=== PATIENT | female | born 1990 | race Caucasian/White ===

== ENCOUNTER 2022-05-12 16:12 | Outpatient (CLI) | payer OTHER, SELFPAY | END 2022-05-12 16:13 | disposition home or self-care (01) | LOC: LKVREF 05-14 09:15 | PROVIDERS: PCP Family Medicine; Visit Provider Nurse Practitioner Family | DX: R30.0 Dysuria (principal); J32.9 Chronic sinusitis, unspecified | CPT/HCPCS: 87086 ==

== ENCOUNTER 2022-11-10 19:40 | Emergency (ER) | payer BC, SELFPAY ==
[2022-11-10] VITALS (18 sets, daily range): BP systolic 109–139; BP diastolic 76–91; PULSE 74–94; RESP 18; TEMP 36.6; O2SAT 94–99; BMI 32.1
--- NOTE | 2022-11-10 20:00 | CRLHL7_ITS ---
For Patients: As a result of the Cures Act, medical imaging exams and procedure reports are released immediately into your electronic medical record. You may view this report before your referring provider. If you have questions, please contact your health care provider. INDICATION: Increasing right lower quadrant abdominal pain TECHNIQUE: CT abdomen and pelvis 99 cc Isovue 370 contrast. COMPARISON: Abdominal ultrasound on February 10, 2018 FINDINGS: Lower chest: Unremarkable. Liver: Unremarkable. Spleen: Unremarkable. Pancreas: Unremarkable. Gallbladder and bile ducts: Unremarkable. Adrenal glands: Unremarkable. Kidneys: Unremarkable. No kidney or ureteral stones and no hydronephrosis. GI tract: Unremarkable. Appendix is normal. Vascular structures: Unremarkable. Lymph nodes: Unremarkable. Miscellaneous: Unremarkable. No free air or significant free fluid. Pelvic Organs: 3.6 cm right adnexal cyst.. Bones: Unremarkable for age. IMPRESSION: Greater than 3 cm cystic mass in the right adnexa. Consider pelvic ultrasound for further evaluation. Please note that all CT scans at this facility use dose modulation, iterative reconstruction, and/or weight-based dosing when appropriate to reduce radiation dose to as low as reasonably achievable. Dictated by Helen King MD @ 11/10/2022 10:18:36 PM (Electronically Signed)
--- NOTE | 2022-11-10 20:07 | ED_ITS ---
HPI - General Adult General Chief complaint: Abdominal Pain <Janet Patrick MD - Last Filed: 11/10/22 22:13> Stated complaint: Pain in R side and nausea <Janet Patrick MD - Last Filed: 11/10/22 22:13> Time Seen by Provider: 11/10/22 19:42 <Janet Patrick MD - Last Filed: 11/10/22 22:13> Source: patient <Janet Patrick MD - Last Filed: 11/10/22 22:13> Mode of arrival: ambulatory <Janet Patrick MD - Last Filed: 11/10/22 22:13> Limitations: no limitations <Janet Patrick MD - Last Filed: 11/10/22 22:13> History of Present Illness HPI narrative: 32-year-old female coming in today complaining of right lower quadrant pain that is been going on for 4 days. She feels nauseated has decreased appetite. She denies vomiting or fevers. She denies anything making the pain better, movement makes it worse. The car ride did not really bother her too much. She has daily bowel movements. No difficulty with urination. She denies and is on control. She states that she does have chronic abdominal pain, however this is different. <Janet Patrick MD - Last Filed: 11/10/22 22:13> Related Data Home medications: Previous Rx's Medication Instructions Recorded azithromycin 250 mg tablet See Rx Instructions PO .COMPLEX #6 05/12/22 tabs <Janet Patrick MD - Last Filed: 11/10/22 22:13> Allergies/adverse reactions: Allergies Allergy/AdvReac Type Severity Reaction Status Date / Time latex Allergy Intermediate Verified 11/10/22 21:11 adhesive tape Allergy Verified 11/10/22 21:11 amoxicillin AdvReac Intermediate Diarrhea Verified 11/10/22 21:11 <Janet Patrick MD - Last Filed: 11/10/22 22:13> Review of Systems Status of ROS: Reports: 10 or more systems reviewed and unremarkable except as noted in History and below <Janet Patrick MD - Last Filed: 11/10/22 22:13> [facility] Medical History: Medical History Dysuria ?R30.0 - Dysuria (ICD-10) <Janet Patrick MD - Last Filed: 11/10/22 22:13> Social History: Social History Smoking Status: Current every day smoker What tobacco products do you use: cigarettes Smoking packs per day: 0.5 Smoking cigarettes per day: 10.0 Years smoked: 20 Smoking pack-years: 10.00 Second hand tobacco smoke exposure: Yes How often do you have a drink containing alcohol: monthly or less How many standard drinks containing alcohol do you have on a typical day: 1 or 2 How often do you have six or more drinks on one occasion: Never AUDIT-C Alcohol total score: 1 Non-prescribed substance use: marijuana (any form) service: No <Janet Patrick MD - Last Filed: 11/10/22 22:13> Exam Narrative: Exam Narrative: Well-nourished well-developed patient in no acute distress. Alert and oriented. Answers questions appropriately. Mood and affect are appropriate. Thoughts are goal oriented and rational. No tangential or magical thinking noted. Patient speaks in full sentences without needing to catch their breath. HEENT: Normocephalic atraumatic. Pupils are equally round reactive to light. Extraocular muscles are intact. Conjunctivae are moist without any icterus noted. Moist mucous membranes. Posterior pharynx is normal. Neck is soft without any lymphadenopathy or thyromegaly. No masses are appreciated. Cardiovascular: Heart is regular rate and rhythm S1 and S2 are present without any murmurs. Lungs: Clear to auscultation bilaterally no wheezes rhonchi or rales are appreciated. Patient takes deep breaths without any discomfort. Abdomen: Soft and nondistended normal bowel sounds. No guarding or rebound tenderness. She does have right lower quadrant pain white at McBurney's point. Does not appear to have pelvic pain. Extremities: Bilateral lower extremities are without edema. Normal DP and PT pulses. Skin: Well perfused without any obvious rashes. <Janet Patrick MD - Last Filed: 11/10/22 22:13> Const: Vital Signs, click to edit/add: Vital Signs - 24 hr 11/10/22 19:46 11/10/22 20:00 11/10/22 21:22 Temperature 98 F Pulse Rate 86 Pulse Rate [Pulse Oximeter] 94 94 Respiratory Rate 18 18 Blood Pressure Blood Pressure [Le ft Upper Arm] 139/91 H 133/81 Pulse Oximetry 97 98 97 Oxygen Delivery Me thod Room Air Room Air 11/10/22 21:30 11/10/22 21:32 11/10/22 21:45 Temperature Pulse Rate 83 83 86 Pulse Rate [Pulse Oximeter] Respiratory Rate Blood Pressure 126/76 Blood Pressure [Le ft Upper Arm] Pulse Oximetry 96 98 95 Oxygen Delivery Me thod Room Air 11/10/22 22:00 11/10/22 22:02 11/10/22 22:15 Temperature Pulse Rate 75 79 77 Pulse Rate [Pulse Oximeter] Respiratory Rate Blood Pressure 129/85 Blood Pressure [Le ft Upper Arm] Pulse Oximetry 98 97 96 Oxygen Delivery Me thod 11/10/22 22:30 Temperature Pulse Rate 79 Pulse Rate [Pulse Oximeter] Respiratory Rate Blood Pressure Blood Pressure [Le ft Upper Arm] Pulse Oximetry 94 Oxygen Delivery Me thod <Janet Patrick MD - Last Filed: 11/10/22 22:13> Vital Signs, click to edit/add: Vital Signs - 24 hr 11/10/22 19:46 11/10/22 20:00 11/10/22 21:22 Temperature 98 F Pulse Rate 86 Pulse Rate [Pulse Oximeter] 94 94 Respiratory Rate 18 18 Blood Pressure Blood Pressure [Le ft Upper Arm] 139/91 H 133/81 Pulse Oximetry 97 98 97 Oxygen Delivery Me thod Room Air Room Air 11/10/22 21:30 11/10/22 21:32 11/10/22 21:45 Temperature Pulse Rate 83 83 86 Pulse Rate [Pulse Oximeter] Respiratory Rate Blood Pressure 126/76 Blood Pressure [Le ft Upper Arm] Pulse Oximetry 96 98 95 Oxygen Delivery Me thod Room Air 11/10/22 22:00 11/10/22 22:02 11/10/22 22:15 Temperature Pulse Rate 75 79 77 Pulse Rate [Pulse Oximeter] Respiratory Rate Blood Pressure 129/85 Blood Pressure [Le ft Upper Arm] Pulse Oximetry 98 97 96 Oxygen Delivery Me thod 11/10/22 22:30 Temperature Pulse Rate 79 Pulse Rate [Pulse Oximeter] Respiratory Rate Blood Pressure Blood Pressure [Le ft Upper Arm] Pulse Oximetry 94 Oxygen Delivery Me thod <Aj Conley MD - Last Filed: 11/13/22 08:12> Course Course Hospital Course: IV was started and labs were drawn. Abdominal CT was ordered. Differential diagnoses at this time includes appendicitis, colitis, ovarian cyst, constipation, pancreatitis. I did offer the patient pain medications and she declined at this time. Laboratory workup was unremarkable. UA was a poor specimen. Abdominal CT results pending at this time. Care transferred to oncoming physician. <Janet Patrick MD - Last Filed: 11/10/22 22:13> Vital Signs Vital signs: Initial Vital Signs Temperature 98 F 11/10/22 19:46 Temperature Source Temporal Artery Scan 11/10/22 19:46 Pulse Rate 94 11/10/22 19:46 Pulse Rhythm Regular 11/10/22 19:46 Respiratory Rate 18 11/10/22 19:46 Blood Pressure 139/91 H 11/10/22 19:46 Blood Pressure Mean 107 H 11/10/22 19:46 Blood Pressure Position Supine 11/10/22 19:46 Pulse Oximetry 97 11/10/22 19:46 Vital Signs Temperature 98 F 11/10/22 19:46 Pulse Rate 94 11/10/22 19:46 Respiratory Rate 18 11/10/22 19:46 Blood Pressure 139/91 H 11/10/22 19:46 Pulse Oximetry 97 11/10/22 19:46 Temperature 98 F 11/10/22 19:46 Pulse Rate 80 11/10/22 23:45 Respiratory Rate 18 11/10/22 20:00 Blood Pressure 109/78 11/10/22 23:32 Pulse Oximetry 97 11/10/22 23:45 Oxygen Delivery Method Room Air 11/10/22 21:30 <Janet Patrick MD - Last Filed: 11/10/22 22:13> Initial Vital Signs Temperature 98 F 11/10/22 19:46 Temperature Source Temporal Artery Scan 11/10/22 19:46 Pulse Rate 94 11/10/22 19:46 Pulse Rhythm Regular 11/10/22 19:46 Respiratory Rate 18 11/10/22 19:46 Blood Pressure 139/91 H 11/10/22 19:46 Blood Pressure Mean 107 H 11/10/22 19:46 Blood Pressure Position Supine 11/10/22 19:46 Pulse Oximetry 97 11/10/22 19:46 Vital Signs Temperature 98 F 11/10/22 19:46 Pulse Rate 94 11/10/22 19:46 Respiratory Rate 18 11/10/22 19:46 Blood Pressure 139/91 H 11/10/22 19:46 Pulse Oximetry 97 11/10/22 19:46 Temperature 98 F 11/10/22 19:46 Pulse Rate 80 11/10/22 23:45 Respiratory Rate 18 11/10/22 20:00 Blood Pressure 109/78 11/10/22 23:32 Pulse Oximetry 97 11/10/22 23:45 Oxygen Delivery Method Room Air 11/10/22 21:30 <Aj Conley MD - Last Filed: 11/13/22 08:12> Medical Decision Making MDM Narrative Medical decision making narrative: 32-year-old female with right lower quadrant abdominal pain of unclear etiology. CT pending. <Janet Patrick MD - Last Filed: 11/10/22 22:13> 32-year-old female with right lower quadrant abdominal pain of unclear etiology. CT pending. Jarvis -- I inherited this patient at change of shift pending abdomen pelvis CT. Findings most notable for a 3.6 cm suspected cyst in the right adnexal area. Recommendations were for pelvic ultrasound. Ms. Du does acknowledge remote ovarian cyst and was very worried about pain with the proposed ultrasound. Pre treated with Dilaudid. Follow-up pelvic ultrasound per my conversation with robotics technologist noting approximately a 4.5 cm ovarian cyst on the right ovary with good blood flow and a small amount of free fluid. Discussed with OBgyn and with Ms. Du need for pain management and planning for follow up US outpatient in 4 - 6 weeks. See patient discharge plan. <Aj Conley MD - Last Filed: 11/13/22 08:12> Lab Data Lab results reviewed: Yes I reviewed the patient's lab results <Janet Patrick MD - Last Filed: 11/10/22 22:13> Labs: Lab Results 11/10/22 11/10/22 Range/Units 20:15 20:20 WBC 11.22 H (4.50-11.00) K/uL RBC 4.48 (4.00-5.20) m/uL Hgb 13.5 (12.0-16.0) gm/dL Hct 40.9 (33.0-51.0) % MCV 91 (80-100) fL MCH 30 (26-34) pg MCHC 33 (32-36) gm/dL RDW Coeff of Jennifer 12.0 (11.5-15.5) % Plt Count 349 (140-440) K/uL Neut % (Auto) 55.2 (42.0-72.0) % Lymph % (Auto) 36.7 (20-44) % [place] % (Auto) 5.8 (0.0-11.0) % Eos % (Auto) 1.8 (0.0-7.0) % Baso % (Auto) 0.4 (0.0-3.0) % Neut # (Auto) 6.20 (1.7-7.0) K/uL Lymph # (Auto) 4.10 H (0.90-2.90) K/uL [place] # (Auto) 0.70 (0.00-0.90) K/UL Eos # (Auto) 0.20 (0.00-0.50) K/uL Baso # (Auto) 0.00 (0.00-0.30) K/uL Abs Immat Gran (auto) 0.00 (0.00-0.30) K/uL Imm/Tot Granulo (auto) 0.1 % ESR 16 (2-20) mm/hr Sodium 137 (135-149) mmol/L Potassium 3.9 (3.6-5.1) mmol/L Chloride 103 (96-114) mmol/L Carbon Dioxide 27 (20-32) mmol/L BUN 18 (5-24) mg/dL Creatinine 0.6 (0.5-1.5) mg/dL Estimated Creat Clear 132.11 Estimated GFR 123 ml/min Glucose 96 (60-115) mg/dL Lactate 0.9 (0.5-1.9) mmol/L Calcium 9.2 (8.4-10.6) mg/dL Total Bilirubin 0.4 (0.1-1.5) mg/dL Direct Bilirubin 0.4 (0.0-0.5) mg/dL AST 27 (12-35) U/L ALT 25 (4-35) U/L Alkaline Phosphatase 93 (40-150) U/L C-Reactive Protein 0.9 (0.5-1.0) mg/dL Total Protein 7.5 (6.0-8.3) g/dL Albumin 4.4 (3.3-5.0) g/dL Lipase 57 (23-300) U/L Urine Color Yellow (Yellow) Urine Appearance Slightly Cloudy A (Clear) Urine pH 7.0 (5.0-8.5) Ur Specific [place] 1.025 (1.000-1.030) Urine Protein 1+ A (Negative) Urine Glucose (UA) Negative (Negative) Urine Ketones 1+ A (Negative) Urine Blood Trace-intact A (Negative) Urine Nitrite Negative (Negative) Urine Bilirubin 1+ A (Negative) Urine Urobilinogen 0.2 (0.2-1.0) Ur Leukocyte Esterase Negative (Negative) Urine RBC 2-5 A (0-2) Urine WBC 2-5 (0-5) Ur Squamous Epith Cells Moderate A (None-Few) Urine Bacteria Moderate A (None) Urine HCG, Qual Negative (Negative) <Janet Patrick MD - Last Filed: 11/10/22 22:13> Lab Results 11/10/22 11/10/22 Range/Units 20:15 20:20 WBC 11.22 H (4.50-11.00) K/uL RBC 4.48 (4.00-5.20) m/uL Hgb 13.5 (12.0-16.0) gm/dL Hct 40.9 (33.0-51.0) % MCV 91 (80-100) fL MCH 30 (26-34) pg MCHC 33 (32-36) gm/dL RDW Coeff of Jennifer 12.0 (11.5-15.5) % Plt Count 349 (140-440) K/uL Neut % (Auto) 55.2 (42.0-72.0) % Lymph % (Auto) 36.7 (20-44) % [place] % (Auto) 5.8 (0.0-11.0) % Eos % (Auto) 1.8 (0.0-7.0) % Baso % (Auto) 0.4 (0.0-3.0) % Neut # (Auto) 6.20 (1.7-7.0) K/uL Lymph # (Auto) 4.10 H (0.90-2.90) K/uL [place] # (Auto) 0.70 (0.00-0.90) K/UL Eos # (Auto) 0.20 (0.00-0.50) K/uL Baso # (Auto) 0.00 (0.00-0.30) K/uL Abs Immat Gran (auto) 0.00 (0.00-0.30) K/uL Imm/Tot Granulo (auto) 0.1 % ESR 16 (2-20) mm/hr Sodium 137 (135-149) mmol/L Potassium 3.9 (3.6-5.1) mmol/L Chloride 103 (96-114) mmol/L Carbon Dioxide 27 (20-32) mmol/L BUN 18 (5-24) mg/dL Creatinine 0.6 (0.5-1.5) mg/dL Estimated Creat Clear 132.11 Estimated GFR 123 ml/min Glucose 96 (60-115) mg/dL Lactate 0.9 (0.5-1.9) mmol/L Calcium 9.2 (8.4-10.6) mg/dL Total Bilirubin 0.4 (0.1-1.5) mg/dL Direct Bilirubin 0.4 (0.0-0.5) mg/dL AST 27 (12-35) U/L ALT 25 (4-35) U/L Alkaline Phosphatase 93 (40-150) U/L C-Reactive Protein 0.9 (0.5-1.0) mg/dL Total Protein 7.5 (6.0-8.3) g/dL Albumin 4.4 (3.3-5.0) g/dL Lipase 57 (23-300) U/L Urine Color Yellow (Yellow) Urine Appearance Slightly Cloudy A (Clear) Urine pH 7.0 (5.0-8.5) Ur Specific [place] 1.025 (1.000-1.030) Urine Protein 1+ A (Negative) Urine Glucose (UA) Negative (Negative) Urine Ketones 1+ A (Negative) Urine Blood Trace-intact A (Negative) Urine Nitrite Negative (Negative) Urine Bilirubin 1+ A (Negative) Urine Urobilinogen 0.2 (0.2-1.0) Ur Leukocyte Esterase Negative (Negative) Urine RBC 2-5 A (0-2) Urine WBC 2-5 (0-5) Ur Squamous Epith Cells Moderate A (None-Few) Urine Bacteria Moderate A (None) Urine HCG, Qual Negative (Negative) <Aj Conley MD - Last Filed: 11/13/22 08:12> Discharge Plan Discharge Clinical Impression: Abdominal pain, Ovarian cyst <Janet Patrick MD - Last Filed: 11/10/22 22:13> Patient Disposition: Home w/ Parent or Adult <Janet Patrick MD - Last Filed: 11/10/22 22:13> Condition: Stable <Janet Patrick MD - Last Filed: 11/10/22 22:13> Additional Instructions: Focus on hydration. Being well-hydrated can ease pain. Be seen for marked increase in persistent pain, intractable vomiting, fever. Barring the above, recommendations would be to follow up for repeat ultrasound in around 4 weeks to verify improvement/resolution of this cyst. I spoke with an OBGYN from [facility]. [place] and Asad from [place]. <Janet Patrick MD - Last Filed: 11/10/22 22:13> Prescriptions: No Action azithromycin 250 mg tablet See Rx Instructions PO .COMPLEX Qty: 6 0RF Rx Instructions: For 250 mg dose pack: take 500 mg today (day 1), then 250 mg for 4 days (days 2-5) PO <Janet Patrick MD - Last Filed: 11/10/22 22:13> Follow Up/Referrals: Willem Alegre MD [Primary Care Provider] - <Janet Patrick MD - Last Filed: 11/10/22 22:13> Stand Alone Forms: MyHealth Info Instructions <Janet Patrick MD - Last Filed: 11/10/22 22:13>
[2022-11-10 20:30] LABS: Lactate* 0.9 mmol/L (0.5-1.9)
[2022-11-10 20:33] LABS: Appearance Urine Slightly Cloudy (Clear); Bilirubin Urine 1+ (Negative); Blood Urine Trace-intact (Negative); Color Urine Yellow (Yellow); Glucose Urine Negative (Negative); Ketones Urine 1+ (Negative); Leukocyte Esterase Urine Negative (Negative); Nitrite Urine Negative (Negative); Protein Urine 1+ (Negative); Specific Gravity Urine 1.025 (1.000-1.030); Urobilinogen Urine 0.2 (0.2-1.0)
[2022-11-10 20:36] LABS: Basophils Percent Auto 0.4 % (0.0-3.0); Eosinophils Percent Auto 1.8 % (0.0-7.0); Hematocrit 40.9 % (33.0-51.0); Hemoglobin* 13.5 gm/dL (12.0-16.0); Immature Granulocytes Pct Auto 0.1 %; Lymphocytes Percent Auto 36.7 % (20-44); Mean Corpuscular HGB Conc 33 gm/dL (32-36); Mean Corpuscular Hemoglobin 30 pg (26-34); Mean Corpuscular Volume 91 fL (80-100); Monocytes Percent Auto 5.8 % (0.0-11.0); Neutrophils Percent Auto 55.2 % (42.0-72.0); Platelet Count* 349 K/uL (140-440); Red Blood Count 4.48 m/uL (4.00-5.20); Slide Review Reflex No; White Blood Count* 11.22 K/uL (4.50-11.00)
[2022-11-10 20:37] LABS: Ur HCG Qualitative* Negative (Negative)
[2022-11-10 20:50] LABS: Albumin* 4.4 g/dL (3.3-5.0); Chloride* 103 mmol/L (96-114)
[2022-11-10 20:51] LABS: Potassium* 3.9 mmol/L (3.6-5.1); Sodium* 137 mmol/L (135-149)
[2022-11-10 20:53] LABS: Creatinine* 0.6 mg/dL (0.5-1.5); Est. Creatinine Clearance* 132.11; Estimated Glomerular Filt Rate 123 ml/min
[2022-11-10 20:54] LABS: Alanine Aminotransferase* 25 U/L (4-35); Alkaline Phosphatase* 93 U/L (40-150); Aspartate Amino Transferase* 27 U/L (12-35); Bilirubin Direct* 0.4 mg/dL (0.0-0.5); Bilirubin Total* 0.4 mg/dL (0.1-1.5); Blood Urea Nitrogen* 18 mg/dL (5-24); Calcium* 9.2 mg/dL (8.4-10.6); Carbon Dioxide* 27 mmol/L (20-32); Glucose* 96 mg/dL (60-115); Lipase* 57 U/L (23-300); Total Protein* 7.5 g/dL (6.0-8.3)
[2022-11-10 20:54] LABS: Bacteria Urine Moderate; Squamous Epithelial Cell Urine Moderate (None-Few)
[2022-11-10 20:56] LABS: C Reactive Protein* 0.9 mg/dL (0.5-1.0)
[2022-11-10 21:11] LABS: Erythrocyte SedimentationRate* 16 mm/hr (2-20)
[2022-11-10] MEDS: ACETAMINOPHEN 500 MG TABLET 1000 MG PO (22:25)
--- NOTE | 2022-11-10 22:55 | CRLHL7_ITS ---
For Patients: As a result of the Century Cures Act, medical imaging exams and procedure reports are released immediately into your electronic medical record. You may view this report before your referring provider. If you have questions, please contact your health care provider. INDICATION: Right and axial cyst TECHNIQUE: Ultrasound pelvis transabdominal and transvaginal for better assessment or to better visualize the endometrium. Real-time sonographic images with spectral and color Doppler imaging of the ovaries were obtained. COMPARISON: CT abdomen and pelvis same date FINDINGS: Uterus: 7.1 x 3.7 x 5.1 cm. Normal echotexture of the myometrium. No masses. Endometrium: Transvaginal imaging was performed to better evaluate the endometrium. 7 mm in thickness. No sign of endometrial mass or fluid. Right ovary: 5.7 x 3.5 x 4.2 cm. There is a 4.4 x 3.1 x 3.7 cm cyst on the right ovary. Normal arterial and venous blood flow. Left ovary: Not visualized. Cul-de-sac: No significant free fluid. IMPRESSION: Greater than 4 cm cyst on the right ovary. Recommend follow-up ultrasound in 4-6 weeks. The left ovary was not visualized on this exam. Dictated by Helen King MD @ 11/11/2022 1:18:15 AM (Electronically Signed)
[2022-11-10] MEDS: HYDROmorphone 0.5 mg/0.5 ml inj IVP (23:51)
--- NOTE | 2022-11-11 19:30 | ED.NURSE ---
Patient called looking for a missing work note from Dr. Conley.
== END 2022-11-11 01:19 | disposition home or self-care (01) ==
PROVIDERS: Emergency Provider Family Medicine; PCP Family Medicine
DX: N83.201 Unspecified ovarian cyst, right side (principal)
CPT/HCPCS: 36415; 74177; 76830; 76856; 80048; 80076; 81001; 81025; 83605; 83690; 85025; 85651; 86140; 87086; 93976; 96374; 99284; A9270; J1170; Q9967

== ENCOUNTER 2024-02-09 11:54 | Outpatient (CLI) | payer MEDICAID, SELFPAY | END 2024-02-09 11:55 | disposition home or self-care (01) | PROVIDERS: PCP Family Medicine; Visit Provider Physician Assistant | DX: Z34.92 Encounter for supervision of normal pregnancy, unspecified, second trimester (principal); Z3A.16 16 weeks gestation of pregnancy | CPT/HCPCS: 82565; 82570; 84156; 84450; 84460; 84520; 86592; 87086 ==

== ENCOUNTER 2024-02-15 11:22 | Outpatient (CLI) | payer MEDICAID, SELFPAY ==
--- OUTSIDE RECORDS SUMMARY | 2024-02-15 14:27 | XMS_ITS ---
Author Organization [facility] Address [address] [place] [address] Care Team Providers Care Security Flex Utility Officer Name Role Phone Unavailable Unavailable Unavailable Surgery Details Not on file Complications Check Surgery Details section. Procedure Estimated Blood Loss Check Surgery Details section. Procedure Findings Check Surgery Details section. Procedure Specimens Taken Check Surgery Details section.
--- OUTSIDE RECORDS SUMMARY | 2024-02-15 14:27 | XMS_ITS | Encounter Summary ---
Author Organization [facility] Address [address] [place] [address] Care Team Providers Care Rural Route Carrier Name Role Phone Unavailable Primary Care Provider Unavailabl e Encounter Details Date Type Department Care Team (Late st Contact Info) Description 01/22/2024 Clinical Communication Department of Obstetrics and Gynecology in [place], [place] [address] [place] [phone] Elisa Byrne, JOSÉ, C.N.P., M.S.N. [address] [place] [phone] Social History Tobacco Use Types Packs/Day Years Used Date Smoking Tobacco: Former Cigarettes Passive Smoke Exposure: Past Smokeless Tobacco: Never Alcohol Use Standard Drinks/Week Comments No 0 (1 standard drink = 0.6 oz pur e alcohol) [facility] Utilities Answer Date Recorded In the past 12 months has [employer], [employer], oil, or water [email or web address] threatened to shut off services in your home? No 12/09/2023 Humiliation, Afraid, Rape, and Kick questionnair e Answer Date Recorded Within the last year, have y ou been afraid of your partner or ex-partner? No 10/31/2022 Within the last year, have y ou been humiliated or emotionally abused in other ways by your partner or ex-partner? No Within the last year, have y ou been kicked, hit, slapped, or otherwise physically hurt by your partner or ex-partner? No 10/31/2022 Within the last year, have y ou been raped or forced to have any kind of sexual activity by your partner or ex-partner? No 10/31/2022 Social Connection and Isolat ion Panel [NHANES] Answer Date Recorded In a typical week, how many times do you talk on the phone with family, friends, or neighbors? Patient declined 02/23/2020 How often do you get togethe r with friends or relatives? Never 02/23/2020 How often do you attend chur or yazidi services? More than 4 times per year 02/23/2020 Do you belong to any clubs o r organizations such as taoist groups, unions, fraternal or athletic groups, or school groups? Yes 02/23/2020 How often do you attend meet ings of the clubs or organizations you belong to? More than 4 times per year 02/23/2020 Are you , , di vorced, , never , or living with a partner? 02/23/2020 AUDIT-C Answer Date Recorded Q1: How often do you have a drink containing alc ohol? Monthly or less 02/23/2020 Q2: How many drinks containi ng alcohol do you have on a typical day when you are drinking? 1 or 2 02/23/2020 Q3: How often do you have si x or more drinks on one occasion? Never 02/23/2020 Overall Financial Resource Strain (CARDIA) Answe r Date Recorded How hard is it for you to pa y for the very basics like food, housing, medical care, and heating? Somewhat hard 10/31/2022 PHQ-2 Answer Date Recorded PHQ-2 Score 0 01/13/2024 [facility] - Occupational Stress Questionnaire Answer Date Recorded Do you feel stress - tense, restless, nervous, or anxious, or unable to sleep at night because your mind is troubled all the time - these days? Very much 02/23/2020 Exercise Vital Sign Answer Date Recorde d On average, how many days pe r week do you engage in moderate to strenuous exercise (like a brisk walk)? 0 days 12/09/2023 On average, how many minutes do you engage in exercise at this level? 0 min 12/09/2023 Hunger Vital Sign Answer Date Recorded Within the past 12 months, y ou worried that your food would run out before you got the money to buy more. Sometimes true Within the past 12 months, t he food you bought just didn't last and you didn't have money to get more. Sometimes true 11/2023 PRAPARE - Transportation Answer Date Re corded In the past 12 months, has l ack of transportation kept you from medical appointments or from getting medications? No 11/2023 In the past 12 months, has l ack of transportation kept you from meetings, work, or from getting things needed for daily living? No 12/09/2023 Depression Answer Date Recor ded PHQ-9 Total Score (max 27) 10 01/12 Nutrition Answer Date Recorded On average, how many serving s of fruits and vegetables do you eat per day (serving size is equal to 1 cup or approximately the size of a tennis ball)? 3-5 12/09/2023 Dental Answer Date Recorded Dental: Regular Dentist No 11/01/19 Employment Answer Date Recorded Employment status Unemployed/not in e paid workforce and NOT seeking employment 12/09/2023 Housing Stability Answer Date Recorded What is your living situation today? I have a [facility] place to live 12/09/2023 Education Answer Date Recorded What is the highest level of school you have completed or the highest degree you have received? GED or equivalent Estimated Date of Delivery Comme nts Yes 07/24/2024 Based on last me nstrual period of 10/18/2023 (Exact Date) Sex and Gender Information Value Date Recorded Sex Assigned at Female 01/18/2018 1:29 PM CDT Legal Sex Female 11:44 AM CDT Gender Identity Female 01/18/2018 1:29 PM CDT Sexual Orientation Bisexual 01/18/2018 1: 29 PM CDT documented as of this encounter Plan of Treatment Not on file documented as of this encounter Visit Diagnoses Not on filedocumented in this encounter Additional Health Concerns Assessment Noted Time PHQ-9 Depression Total Score: 024 4:33 PM CDT documented as of this encounter
--- OUTSIDE RECORDS SUMMARY | 2024-02-15 14:27 | XMS_ITS | Referral Summary ---
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 For routine questions regarding patient records, call [phone] during business hours, M-F 8:00 AM - 5:00 PM Central Time. Record requests for emergency care only can be directed to [phone] at any time.[facility] Encounters Date Type Department Care Team Description 01/22/2024 Clinical Communication Department of Obstetrics and Gynecology in [address] [phone] Elisa Byrne APRN, C.N.P., M.S.N. 01/13/2024 4:36 PM CDT - 01/13/2024 11:59 PM CDT Hospital Encounter Department of Laboratory Medicine in [address] [phone] Elisa Byrne APRN, C.N.P., M.S.N. Examination Normal First Trimester (HCC) Discharge Disposition: Home or Self Care 01/13/2024 4:00 PM CDT Silent Schedule Department of Obstetrics and Gynecology in [address] [phone] Elisa Byrne APRN C.N.P., M.S.N. 01/13/2024 3:00 PM CDT Initial Department of Obstetrics and Gynecology in [address] [phone] Elisa Byrne APRN, C.N.[place], M.S.N. GA: 12w3d Discharge Disposition: Home or Self Care 12/16/2023 1:35 PM CDT Silent Schedule Department of Obstetrics and Gynecology in [address] [phone] Elisa Byrne APRN, C.N.Terrence., M.S.N. Discharge Disposition: Home or Self Care 12/16/2023 1:30 PM CDT Office Visit Department of Obstetrics and Gynecology in [address] [phone] Elisa Byrne APRN, C.N.P., M.S.N. Examination Normal First Trimester (HCC) Discharge Disposition: Home or Self Care 12/01/2023 Orders Only Department of Obstetrics and Gynecology in [address] [phone] Elisa Byrne APRN, Dylon.N.P., M.S.N. Examination Normal First Trimester (HCC) (Primary Dx) 11/30/2023 3:36 PM CDT - 11/30/2023 11:59 PM CDT Hospital Encounter Department of Radiology in [address] [phone] Elisa Byrne APRN, Dylon.N.P., M.S.N. Bleeding Vaginal Trimester First (HCC) Discharge Disposition: Home or Self Care 11/25/2023 11:42 AM CDT - 11/25/2023 11:59 PM CDT Hospital Encounter Department of Laboratory Medicine in [address] [phone] Elisa Byrne APRN, C.N.P., M.S.N. Dysuria Discharge Disposition: Home or Self Care 11/25/2023 11:41 AM CDT Hospital Encounter Department of Laboratory Medicine in [address] [phone] Elisa Byrne APRN, C.N.Terrence., M.S.N. Test Discharge Disposition: Home or Self Care 11/23/2023 Orders Only Department of Obstetrics and Gynecology in [address] [phone] Elisa Byrne APRN, Dylon.N.Terrence., M.S.N. Bleeding Vaginal Trimester First (HCC) (Primary Dx) 11/23/2023 3:25 PM CDT - 11/23/2023 11:59 PM CDT Hospital Encounter Department of Laboratory Medicine in [address] [phone] Elisa Byrne APRN, C.N.P., M.S.N. Test Discharge Disposition: Home or Self Care from Last 3 Months Allergies Active Allergy Reactions Criticality Noted Date Comments Adhesive Rash 12/03/2016 Amoxicillin GI intolerance High 12/31/2022 Rash and diarrhea Latex Rash 10/10/2016 Medications * This document contains information received from the source organization and may not represent a complete record from that organization. hydrOXYzine (ATARAX) 25 mg tablet Take 25 mg by mouth every 6 (six) hours as needed for anxiety. Active amphetamine-dextro amphetamine (ADDERALL XR) 30 mg 24 hr capsule 4 Active albuterol 90 mcg/actuation inhalerIndications :Bronchitis,Asthma Tobacco User Inhale 1 puff every 4 (four) hours as needed for shortness of breath. 8 g 4 Active clobetasoL (TEMOVATE) 0.05 % ointmentIndication s:Lichen Sclerosus Apply a thin layer to affected tissue once weekly for maintenance. May increase to daily for 2 weeks with flare of symptoms. Rub into tissue for 30 seconds 15 g 3 4 Active multivitamin tablet Take 1 tablet by mouth daily. Active folic acid 800 mcg tablet Take 800 mcg by mouth daily. Active ondansetron ODT (Zofran-ODT) 4 mg disintegrating tablet Dissolve 1 tablet (4 mg total) in the mouth every 8 (eight) hours as needed for nausea or vomiting. 20 tablet 2 4 Active pyridoxine, vitamin B6, (vitamin B-6) 25 mg tablet Take 1 tablet (25 mg total) by mouth 3 (three) times a day. 90 tablet 1 4 Active doxylamine (Unisom) 25 mg tablet Take 0.5 tablets (12.5 mg total) by mouth at bedtime as needed for sleep or nausea. 30 tablet 1 4 Active aspirin [address] tablet Take 1 tablet (81 mg total) by mouth daily. Start anytime before 16 weeks gestation. 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 07/23/2023 Tobacco Use 07/23/2023 Wart Plantar 06/11/2023 Lichen Sclerosus 10/31/2022 Estimated Date of Delivery Comme nts Yes 07/24/2024 Based on last me nstrual period of 10/18/2023 (Exact Date) Resolved Problems Problem Noted Date Diagnosed Date Resolved Date Hypothyroidism 07/23/2023 07/24/2023 Incomplete 12/15/2017 01/22/20 21 Overview (12/15/2017): Added automatically from request for surgery [id number] Social History Tobacco Use Types Packs/Day Years Used Date Smoking Tobacco: Former Cigarettes Passive Smoke Exposure: Past Smokeless Tobacco: Never Tobacco Cessation:Counseling Given: Not Answered Alcohol Use Standard Drinks/Week Comments No 0 (1 standard drink = 0.6 oz pur e alcohol) [facility] Utilities Answer Date Recorded In the past 12 months has e [place], gas, oil, or water company threatened to shut off services in your [...] Never 02/23/2020 How often do you attend [facility] or [facility] services? More than 4 times per year 02/23/2020 Do you belong to any clubs o r organizations such as mosque groups, unions, fraternal or athletic groups, or [...] Answer Date Recorded PHQ-2 Score 0 01/13/2024 [facility] [place] of Occupat ional Health - Occupational Stress [...] your living situation today? I have a [facility] place to live 12/09/2023 Education Answer [...] Orientation Bisexual 01/18/2018 1: 29 PM CDT Last Filed Vital Signs Vital Sign Reading Time Taken Comments Blood Pressure 112/76 01/13/2024 2:51 PM CDT Pulse 99 01/13/2024 2:51 PM CDT Temperature 37.1 ??C (98.8 ??F) 12/16/2023 1:32 PM CD T Respiratory Rate 20 07/11/2023 1:00 PM [employer] Oxygen Saturation 96% 07/11/2023 1:00 PM [employer] Inhaled Oxygen Concentration - - Weight 72.8 kg (160 lb 9.6 oz) 01/13/2024 2:51 P M CDT Height 167.6 cm (5' 6) 12/16/2023 1:32 PM CDT Body Mass Index 25.92 12/16/2023 1:32 PM CDT Plan of Treatment Not on file Procedures Procedure Name Priority Date/Time Associated Diagnosis Comments TESTING LOCATION Routine 01/13/2024 4:53 PM CDT TYPE AND SCREEN Routine 01/13/2024 4:53 PM CDT Examination Normal First Trimester (HCC) PANORAMA SCREEN Routine 01/13/2024 4:52 PM CDT Examination Normal First Trimester (HCC) CBC WITH DIFFERENTIAL, B Routine 01/13/2024 4:52 PM CDT Examination Normal First Trimester (HCC) VARICELLA-ZOSTER AB, IGG, S Routine 01/13/2024 4:52 PM CDT Examination Normal First Trimester (HCC) HIV-1/-2 AG AND AB SCRN, PLASMA Routine 01/13/2024 4:52 PM CDT Examination Normal First Trimester (HCC) HCV AB SCRN , S Routine 01/13/2024 4:52 PM CDT Examination Normal First Trimester (HCC) HBS ANTIBODY , S Routine 01/13/2024 4:52 PM CDT Examination Normal First Trimester (HCC) RUBELLA ANTIBODIES, IGG Routine 01/13/2024 4:52 PM CDT Examination Normal First Trimester (HCC) US OB FIRST TRIMESTER RAD - Routine (most inpatients and all outpatients) 01/13/2024 4:36 PM CDT Examination Normal First Trimester (HCC) URINALYSIS WITH MICROSCOPIC Routine 01/13/2024 4:33 PM CDT Examination Normal First Trimester (HCC) BACTERIAL CULTURE, AEROBIC + SUSC, URINE Routine 01/13/2024 4:33 PM CDT Examination Normal First Trimester (HCC) CHLAMYDIA/GONORRHOE AE AMPLIFIED RNA Routine 01/13/2024 4:33 PM CDT Examination Normal First Trimester (HCC) US OB FIRST TRIMESTER RAD - Routine (most inpatients and all outpatients) 12/16/2023 2:41 PM CDT Examination Normal First Trimester (HCC) US OB FIRST TRIMESTER AND TRANSVAGINAL RAD - Routine (most inpatients and all outpatients) 11/30/2023 4:23 PM CDT Bleeding Vaginal Trimester First (HCC) HC URINALYSIS AUTO W MICRO Routine 11/25/2023 11:57 AM CDT URINALYSIS WITH MICROSCOPIC IF INDICATED, U Routine 11/25/2023 11:57 AM CDT Dysuria BACTERIAL CULTURE, AEROBIC + SUSC, URINE Routine 11/25/2023 11:57 AM CDT Dysuria HUMAN CHORIONIC GONADOTROPIN (HCG), PAULA, Routine 11/25/2023 11:56 AM CDT Test HUMAN CHORIONIC GONADOTROPIN (HCG), PAULA, Routine 11/23/2023 3:32 PM CDT Test HPV WITH GENOTYPING, PCR, THINPREP Routine 06/10/2022 2:36 PM [employer] from Last 3 Months or Most Recently Relevant to Health Maintenance Results * Testing Location (01/13/2024 4:53 PM CDT) Testing Location [facility] DEFAULT 01/13/2024 4:57 PM CDT [facility] Blood 01/13/2024 4:53 PM CDT 01/13/2024 4:57 PM CDT us Dylon Conway APRN.N.Terrence., M.S.N. LAB BLOOD BA NK TEST ORDERABLES Final Result Performing Organization Address City/[facility]/ZIP Co de Phone Number [facility] [address] [place] [phone], [facility] NPRG [address] [address] * Type and Screen (with Reflex Antibody ID) (01/13/2024 4:53 PM CDT) ABO Group B 01/13/2024 6:01 PM CDT [facility] Rh Type POS 01/13/2024 6:01 PM CDT [facility] Antibody Screen NEG 6:01 PM CDT [facility] Type & Screen Expiration 01/16/2024 23:59 01/13/2024 6:01 PM CDT NPR[facility] ELXM Eligible Y 01/13/2024 6:01 PM CDT [facility] Blood (Blood, Venous) 01/13/2024 4:53 PM CDT 01/13/2024 4:57 PM CDT us Elisa Byrne APRN, C.N.P., M.S.N. LAB BLOOD BA NK TEST ORDERABLES Final Result [facility] [address] [place] [address], [facility] NPRG [address] [address] * HBs Antibody , Serum (01/13/2024 4:52 PM CDT) HBs Antibody , S Positive 01/14/2024 2:16 AM CDT [facility] Comment: Patient is considered to have been exposed to HBV or immune from HBV vaccination. ----REFERENCE VALUE---- Unvaccinated: Negative Vaccinated: Positive HBs Antibody, Quantitative, S 12.12 mIU/mL 01/14/2024 2:16 AM CDT [facility] Comment: ----REFERENCE VALUE---- <8.50: Negative 8.50-11.49: Indeterminate >=11.50: Positive Blood (Blood, Venous) 01/13/2024 4:52 PM CDT 01/13/2024 10:17 PM CDT Elisa Byrne APRN, C.N.P., M.S.N. LAB MICROBIO LOGY - BLOOD ORDERABLES Final Result [facility] [address] [place] [address], [facility] [place] [address] * Hepatitis C Virus Antibody Screen (01/13/2024 4:52 PM CDT) HCV Ab Scrn , S Negative Negative 01/15/2024 11:37 AM CDT [facility] Comment: Consumption of high-dose biotin supplement within 12 hours of blood collection for this test can cause false-negative results. Blood (Blood, Venous) 01/13/2024 4:52 PM CDT 01/15/2024 7:17 AM CDT Dylon Conway APRN.N.P., M.S.N. LAB MICROBIO LOGY - BLOOD ORDERABLES Final Result [facility] [address] [place] [address] [facility] [address] [place] [address] * Panorama Screen - Sent Out Lab (01/13/2024 4:52 PM CDT) Pathologist [facility] Panorama Screen SEE COMMENT 01/27/2024 10:45 AM CDT [facility] Comment: For final report, select Lab-Send Out Lab Results hyperlink below. Blood (Blood, Venous) 01/13/2024 4:52 PM CDT 01/15/2024 7:06 AM CDT Narrative [employer] - 01/27/2024 10:45 AM CDT Specimen Information: Specimen ID: [id number] Specimen Type: Blood Specimen Collection Start Date: 01/13/2024 ??4:52 PM Specimen Received Date: 01/15/2024 ??7:06 AM Specimen ID: [id number] Specimen Type: Blood Specimen Collection Start Date: 01/13/2024 ??4:53 PM Specimen Received Date: 01/15/2024 ??7:06 AM Dylon Conway APRN.N.P., M.S.N. LAB GENETIC TESTING Final Result [employer] [address] [place] [address], [facility] [employer] [address] [place] [address] * HIV-1/-2 Ag and Ab Scrn, Plasma (01/13/2024 4:52 PM CDT) Pathologist [facility] HIV Ag/Ab Scrn, P Negative Negative 01/13/2024 9:01 PM CDT [facility] Comment: Negative result does not rule out HIV infection. If exposure to HIV infection occurred <14 days ago, contact the laboratory to request addition of HIV-1/HIV-2 RNA detection , Plasma (HPP12). HIV-1 p24 Ag Scrn, P Negative Negative 01/13/2024 9:01 PM CDT [facility] Comment: Negative result does not rule out HIV infection. If exposure to HIV infection occurred <14 days ago, contact the laboratory to request addition of HIV-1/HIV-2 RNA detection , Plasma (HPP12). HIV-1 Ab Scrn, P Negative Negative 01/13/2024 9:01 PM CDT [facility] Comment: Negative result does not rule out HIV infection. If exposure to HIV infection occurred <14 days ago, contact the laboratory to request addition of HIV-1/HIV-2 RNA detection , Plasma (HPP12). HIV-2 Ab Scrn, P Negative Negative 01/13/2024 9:01 PM CDT [facility] Comment: Negative result does not rule out HIV infection. If exposure to HIV infection occurred <14 days ago, contact the laboratory to request addition of HIV-1/HIV-2 RNA detection , Plasma (HPP12). Blood (Blood, Venous) 01/13/2024 4:52 PM CDT 01/13/2024 7:52 PM CDT Elisa Byrne APRN, C.N.P., M.S.N. LAB MICROBIO LOGY - BLOOD ORDERABLES Final Result [place] [address], [facility] [place] [address] * Rubella Antibodies, IgG (01/13/2024 4:52 PM CDT) Rubella Ab, IgG, S Positive 01/13/2024 8:41 PM CDT [facility] Comment: Results suggest response to immunization or prior exposure to the virus. ----REFERENCE VALUE---- Vaccinated: Positive (>=1.0 AI) Unvaccinated: Negative (<=0.7 AI) Rubella IgG Antibody Index 1.4 01/13/2024 8:41 PM CDT [facility] Blood (Blood, Venous) 01/13/2024 4:52 PM CDT 01/13/2024 7:52 PM CDT Elisa Byrne APRN, C.N.P., M.S.N. LAB MICROBIO LOGY - BLOOD ORDERABLES Final Result [facility] [address] [place] [address], [facility] in [address] [address] * (ABNORMAL) CBC with Differential, Blood (01/13/2024 4:52 PM CDT) Pathologist [facility] Hemoglobin 12.1 11.6 - 15.0 g/dL 01/13/2024 5:09 PM CDT [facility] Hematocrit 34.3(L) 35.5 - 44.9 % 01/13/2024 5:09 PM CDT [facility] Erythrocytes 3.84(L) 3.92 - 5.13 x10(12)/L 01/13/2024 5:09 PM CDT [facility] MCV 89.3 78.2 - 97.9 fL 01/13/2024 5:09 PM CDT [facility] RBC Distrib Width 12.5 12.2 - 16.1 % 01/13/2024 5:09 PM CDT [facility] Platelet Count 284 157 - 371 x10(9)/L 01/13/2024 5:09 PM CDT [facility] Leukocytes 10.3(H) 3.4 - 9.6 x10(9)/L 01/13/2024 5:09 PM CDT [facility] Neutrophils 7.27(H) 1.56 - 6.45 x10(9)/L 01/13/2024 5:09 PM CDT [facility] Lymphocytes 2.37 0.95 - 3.07 x10(9)/L 01/13/2024 5:09 PM CDT [facility] Monocytes 0.55 0.26 - 0.81 x10(9)/L 01/13/2024 5:09 PM CDT [facility] Eosinophils 0.09 0.03 - 0.48 x10(9)/L 01/13/2024 5:09 PM CDT [facility] Basophils 0.04 0.01 - 0.08 x10(9)/L 01/13/2024 5:09 PM CDT [facility] Blood (Blood, Venous) 01/13/2024 4:52 PM CDT 01/13/2024 4:57 PM CDT Elisa Byrne APRN, C.N.P., M.S.N. LAB BLOOD AD D-ON Final Result Performing Organization Address City/[facility]/ZIP Co de Phone Number [facility] [address] [place] [address], [facility] NPRG [facility] [address] [place] [address] * Varicella-Zoster Antibody, IgG, Serum (01/13/2024 4:52 PM CDT) Varicella-Zoster Ab, IgG, S Positive 01/13/2024 8:41 PM CDT [facility] Comment: Results suggest response to immunization or prior exposure to the virus. ----REFERENCE VALUE---- Vaccinated: Positive (>=1.1 AI) Unvaccinated: Negative (<=0.8 AI) Varicella IgG Antibody Index 1.3 01/13/2024 8:41 PM CDT [facility] Blood (Blood, Venous) 01/13/2024 4:52 PM CDT 01/13/2024 7:52 PM CDT Elisa Byrne APRN, C.N.P., M.S.N. LAB MICROBIO LOGY - BLOOD ORDERABLES Final Result Performing Organization Address [facility] Co de Phone Number [facility] [address] [place] [address], [facility] in [place] [address] [place] [address] * US OB First Trimester (01/13/2024 4:36 PM CDT) Only the most recent of2 resultswithin the time period is included. Anatomical Region Laterality Modality Body, Ultrasound OB RST LOS, Ultrasound ARZ LOS N/A Ultrasound Narrative 01/13/2024 4:36 PM CDT Exam: Viability Comparison: 8/14/24 Findings: Gestational age and LG by LMP or OB/EHR assignment: 12w3d ?? LG: 07/24/2024 Age and LG by current ultrasound measurments: 12w3d ?? LG: 07/24/2024 Intra-uterine: Embryo and Gestational sac Heart Rate: 146 bpm. Maternal ovaries/adnexae: not examined Impression : Fetus with interval growth and development since last ultrasound, size consistent with earlier dating and confirms EDC of 07/24/24. Fetus in variable positions during exam today. us Elisa Byrne APRN, C.N.P., M.S.N. IMG OB US MD OCEDURES Final Result * Bacterial Culture, Aerobic + Susceptibility, Urine (01/13/2024 4:33 PM CDT) Only the most recent of2 resultswithin the time period is included. Urine Culture Urogenital microbiota, susceptibilities not performed per laboratory criteria. 01/14/2024 3:41 PM CDT [facility] Urine (Urine, Midstream) 01/13/2024 4:33 PM CDT 01/13/2024 10:19 PM CDT Comment:Specimen Source Site : Urine us Elisa Byrne APRN, C.N.P., M.S.N. LAB MICROBIOLOGY - GENERAL ORDERABLES Final Result [facility] [address] [place] [address], [facility] [place] [address] * Chlamydia / Gonorrhoeae Amplified RNA (01/13/2024 4:33 PM CDT) Source Swab, Vagina 01/14/2024 8:07 AM CDT [facility] Chlamydia trachomatis amplified RNA Negative Negative 01/14/2024 8:07 AM CDT [facility] Source Swab, Vagina 01/14/2024 8:07 AM CDT [facility] Neisseria gonorrhoeae amplified RNA Negative Negative 01/14/2024 8:07 AM CDT [facility] Swab (Vagina) 01/13/2024 4:3 3 PM CDT 01/13/2024 10:19 PM CDT us Elisa Byrne APRN, C.N.P., M.S.N. LAB MICROBIOLOGY - GENERAL ORDERABLES Final Result [facility] [address] [place] [address], [facility] [address] [address] * (ABNORMAL) Urinalysis, with Microscopic: Urine, Midstream (01/13/2024 4:33 PM CDT) Source Urine, Urine, Midstream 01/13/2024 4:35 PM CDT [facility] Clarity Clear Clear 01/13/2024 4:38 PM CDT [facility] Color Yellow 01/13/2024 4:38 PM CDT [facility] Comment: ----REFERENCE VALUE---- Colorless Yellow Maryann Blood Negative Negative 01/13/2024 4:38 PM CDT [facility] Nitrite Negative Negative 01/13/2024 4:38 PM CDT [facility] Leukocyte Esterase Negative Negative 01/13/2024 4:38 PM CDT [facility] Protein Negative mg/dL 01/13/2024 4:38 PM CDT [facility] Comment: ----REFERENCE VALUE---- Negative Trace Glucose Negative Negative mg/dL 01/13/2024 4:38 PM CDT [facility] Ketones, QI(U) Trace(A) Negative mg/dL 01/13/2024 4:38 PM CDT [facility] Bilirubin Negative Negative 01/13/2024 4:38 PM CDT [facility] pH 7.0 5.0 - 8.0 01/13/2024 4:38 PM CDT [facility] Specific [place] 1.025 1.001 - 1.035 01/13/2024 4:38 PM CDT [facility] Urobilinogen 0.2 0.2 - 1.0 mg/dL 01/13/2024 4:38 PM CDT [facility] White Blood Cells Occ-3 /hpf 01/13/2024 4:49 PM CDT [facility] Comment: ----REFERENCE VALUE---- Males: 0-3 Females: 0-10 Unknown: 0-10 Red Blood Cells Occ-2 0 - 2 /hpf 4:49 PM CDT [facility] Dysmorphic Red Blood Cells <=25 <=25 % 01/13/2024 4:49 PM CDT [facility] Mucus Present /hpf 01/13/2024 4:49 PM CDT [facility] Squamous Cells Occ-3 /hpf 01/13/2024 4:49 PM CDT [facility] Bacteria Present(A) None Seen 01/13/2024 4:49 PM CDT [facility] Urine (Urine, Midstream) 01/13/2024 4:33 PM CDT 01/13/2024 4:35 PM CDT us Elisa Byrne APRN C.N.P., M.S.N. LAB URINE OR DERABLES Final Result [facility] [address] [place] [address], [place] [facility] [address] [place] [address] * US OB First Trimester and Transvaginal (11/30/2023 4:23 PM CDT) Anatomical Region Laterality Modality Body, Ultrasound OB RST LOS, Ultrasound ARZ LOS, Ultrasound FLA LOS N/A Ultrasound Impressions 11/30/2023 4:45 PM CDT Single living intrauterine with an ultrasound gestational age of 6 weeks and 4 days giving an LG of 07/21/2024. Narrative 11/30/2023 4:45 PM CDT EXAM: US OB FIRST TRIMESTER AND TRANSVAGINAL COMPARISON: None TECHNIQUE: Transabdominal and Transvaginal FINDINGS: Number of Gestations: Single Gestational age and LG by LMP or OB/EHR assignment: 5 w 6 d, LG: 07/26/2024 INTRAUTERINE Pole: Normal, [place]-R[place] Length: 6.6 mm Gestational Sac: Normal Yolk Sac: Normal Placenta Location: Too Early to ID. Age and LG by current ultrasound measurements: 6 w 4 d, LG: 07/21/2024. heart rate: 124 Uterus: No unexpected findings. Right Ovary/Adnexa: Corpus luteum. Left Ovary/Adnexa: Normal. Cervical Length: Intraperitoneal Fluid: None. Procedure Note Nitin Thompson Jr., M.D. - 11/30/2023 EXAM: US OB FIRST TRIMESTER AND TRANSVAGINAL COMPARISON: None TECHNIQUE: Transabdominal and Transvaginal FINDINGS: Number of Gestations: Single Gestational age and LG by LMP or OB/EHR assignment: 5 w 6 d, LG:07/26/2024 INTRAUTERINE Pole: Normal, [place] Length: 6.6 mm Gestational Sac: Normal Yolk Sac: Normal Placenta Location: Too Early to ID. Age and LG by current ultrasound measurements: 6 w 4 d, LG: 07/21/2024. heart rate: 124 Uterus: No unexpected findings. Right Ovary/Adnexa: Corpus luteum. Left Ovary/Adnexa: Normal. Cervical Length: Intraperitoneal Fluid: None. IMPRESSION: Single living intrauterine with an ultrasound gestational age of6 weeks and 4 days giving an LG of 07/21/2024. us Elisa Byrne APRN C.N.P., M.S.N. IMG OB US MD OCEDURES Final Result * (ABNORMAL) Urinalysis with Microscopic if Indicated (11/25/2023 11:57 AM CDT) Source Urine, Urine, Midstream 11/25/2023 12:00 PM CDT [facility] Clarity Clear Clear 11/25/2023 12:03 PM CDT [facility] Color Yellow 11/25/2023 12:03 PM CDT [facility] Comment: ----REFERENCE VALUE---- Colorless Yellow Maryann Blood Trace(A) Negative 11/25/2023 12:03 PM CDT [facility] Nitrite Negative Negative 11/25/2023 12:03 PM CDT [facility] Leukocyte Esterase Negative Negative 11/25/2023 12:03 PM CDT [facility] Protein Negative mg/dL 11/25/2023 12:03 PM CDT [facility] Comment: ----REFERENCE VALUE---- Negative Trace Glucose Negative Negative mg/dL 11/25/2023 12:03 PM CDT [facility] Ketones, QI(U) Negative Negative mg/dL 11/25/2023 12:03 PM CDT [facility] Bilirubin Negative Negative 11/25/2023 12:03 PM CDT [facility] pH 6.5 5.0 - 8.0 11/25/2023 12:03 PM CDT [facility] Specific [place] 1.020 1.001 - 1.035 11/25/2023 12:03 PM CDT [facility] Urobilinogen 0.2 0.2 - 1.0 mg/dL 11/25/2023 12:03 PM CDT [facility] Urine (Urine, Midstream) 11/25/2023 11:57 AM CDT 11/25/2023 12:00 PM CDT us Elisa Byrne APRN, C.N.P., M.S.N. LAB URINE OR DERABLES Final Result [facility] [address] [place] [address], [facility] [address] [place] [address] * (ABNORMAL) Microscopic Manual (11/25/2023 11:57 AM CDT) White Blood Cells Occ-3 /hpf 11/25/2023 12:24 PM CDT [facility] Comment: ----REFERENCE VALUE---- Males: 0-3 Females: 0-10 Unknown: 0-10 Red Blood Cells None Seen 0 - 2 /hpf 11/25/2023 12:24 PM CDT [facility] Squamous Cells Occ-3 /hpf 11/25/2023 12:24 PM CDT [facility] Bacteria Present(A) None Seen 11/25/2023 12:24 PM CDT [facility] Urine 11/25/2023 11:5 7 AM CDT 11/25/2023 12:00 PM CDT Dylon Conway APRN.N.P., M.S.N. LAB URINE OR DERABLES Final Result Performing Organization Address [facility] Co de Phone Number [facility] [address] [place] [address], [place] [address] [address] [place] [address] * (ABNORMAL) hCG (Human Chorionic Gonadotropin), Quantitative, (11/25/2023 11:56 AM CDT) Only the most recent of2 resultswithin the time period is included. HCG, Quantitative, , P 14198(H) <5 IU/L 11/25/2023 12:49 PM CDT NPRG Blood (Blood, Venous) 11/25/2023 11:56 AM CDT 11/25/2023 11:59 AM CDT Elisa Byrne APRN, C.N.P., M.S.N. LAB BLOOD AD D-ON Final Result [facility] [address] [place] [address], [place] [address] [address] [place] [address] * HPV with Genotyping, PCR, ThinPrep (06/10/2022 2:36 PM JOCKEY'S AGENT) HPV with Genotyping, ThinPrep, PCR Negative Negative 06/11/2022 2:27 PM JOCKEY'S AGENT MKTO Comment: Negative for high risk HPV by nucleic acid amplification. ??The following high risk HPV types were not detected: 16, 18, 31, 33, 35, 39, 45, 51, 52, 56, 58, 59, 66, and 68 This result does not rule out HPV in the patient, as the sensitivity of the test depends on the timing of the specimen collection and the quality of the specimen. Result should be correlated with patient's history, clinical presentation, and INFORMATION RESOURCES DIRECTOR cytology report. 06/10/2022 2:36 PM JOCKEY'S AGENT 06/11/2022 7:20 AM JOCKEY'S AGENT us Elisa Byrne APRN, C.N.P., M.S.N. LAB MICROBIOLOGY - GENERAL ORDERABLES Final Result [facility] [address] [place] [address], [facility] MKTO [facility] in [place] [address] [place] [address] from Last 3 Months or Most Recently Relevant to Health Maintenance Insurance [place] [employer]
--- OUTSIDE RECORDS SUMMARY | 2024-02-15 14:27 | XMS_ITS | Clinical Summary ---
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 For routine questions regarding patient records, call [phone] during business hours, M-F 8:00 AM - 5:00 PM Central Time. Record requests for emergency care only can be directed to [phone] at any time.[facility] Allergies Active Allergy Reactions Criticality Noted Date [...] (12/15/2017): Added automatically from request for surgery [id number] Encounters Date Type Department Care Team Description 01/22/2024 Clinical Communication Department of Obstetrics and Gynecology in [address] [phone] Elisa Byrne, JOSÉ, C.N.P., M.S.N. 01/13/2024 4:36 PM CDT - 01/13/2024 11:59 PM CDT Hospital Encounter Department of Laboratory Medicine in [address] [place] [phone] Elisa Byrne APRN, C.N.P., M.S.N. Examination Normal First Trimester (HCC) Discharge Disposition: Home or Self Care 01/13/2024 4:00 PM CDT Silent Schedule Department of Obstetrics and Gynecology in [address] [phone] Elisa Byrne APRN, C.N.P., M.S.N. 01/13/2024 3:00 PM CDT Initial Department of Obstetrics and Gynecology in [address] [phone] Elisa Byrne APRN, C.N.P., M.S.N. GA: 12w3d Discharge Disposition: Home or Self Care 12/16/2023 1:35 PM CDT Silent Schedule Department of Obstetrics and Gynecology in [address] [phone] Elisa Byrne APRN, C.N.Terrence., M.S.N. Discharge Disposition: Home or Self Care 12/16/2023 1:30 PM CDT Office Visit Department of Obstetrics and Gynecology in [address] [phone] Elisa Byrne APRN, C.N.Terrence., M.S.N. Examination Normal First Trimester (HCC) Discharge Disposition: Home or Self Care 12/01/2023 Orders Only Department of Obstetrics and Gynecology in [address] [phone] Elisa Byrne APRN, C.N.P., M.S.N. Examination Normal First Trimester (HCC) (Primary Dx) 11/30/2023 3:36 PM CDT - 11/30/2023 11:59 PM CDT Hospital Encounter Department of Radiology in [address] [phone] Elisa Byrne APRN, C.N.P., M.S.N. Bleeding Vaginal Trimester First (HCC) Discharge Disposition: Home or Self Care 11/25/2023 11:42 AM CDT - 11/25/2023 11:59 PM CDT Hospital Encounter Department of Laboratory Medicine in [place] [address] [place] [phone] Elisa Byrne APRN, C.N.P., M.S.N. Dysuria Discharge Disposition: Home or Self Care 11/25/2023 11:41 AM CDT Hospital Encounter Department of Laboratory Medicine in [address] [phone] Elisa Byrne APRN, C.N.P., M.S.N. Test Discharge Disposition: Home or Self Care 11/23/2023 3:25 PM CDT - 11/23/2023 11:59 PM CDT Hospital Encounter Department of Laboratory Medicine in [place] [address] [place] [phone] Elisa Byrne APRN, C.N.P., M.S.N. Test Discharge Disposition: Home or Self Care 11/23/2023 Orders Only Department of Obstetrics and Gynecology in [address] [phone] Elisa Byrne APRN, C.N.P., M.S.N. Bleeding Vaginal Trimester First (HCC) (Primary Dx) from Last 3 Months Family History Medical History Relation Name Comments Depression Brother 1 Spina bifida Brother 1 Depression Brother 2 Pectus excavatum Brother 2 Depression Brother 3 Multiple sclerosis Brother 3 Mental illness Father Diabetes Maternal Grandmother Heart disease Maternal Grandmother Asthma Mother Diabetes Sister 1 PCOS - Polycystic ovarian syndrome Sister 2 Relation Name Status Comments Brother 1 Brother 2 Alive Brother 3 Alive Daughter Lia Father Maternal Grandfather Maternal Grandmother Mother Alive Sister 1 Sister 2 Alive Social History Tobacco Use Types Packs/Day Years Used Date Smoking Tobacco: Former Cigarettes Passive Smoke Exposure: Past Smokeless Tobacco: Never Tobacco Cessation:Counseling Given: Not Answered Alcohol Use Standard Drinks/Week Comments No 0 (1 standard drink = 0.6 oz pur e alcohol) [facility] Utilities Answer Date Recorded In the past 12 months has th e electric, gas, oil, or water company threatened to [...] How often do you attend chur or voodoo services? More than 4 times per year 02/23/2020 Do you belong to any clubs o r organizations such as synagogue groups, unions, fraternal or athletic groups, or [...] Answer Date Recorded PHQ-2 Score 0 01/13/2024 [facility] - Occupational Stress Questionnaire Answer Date Recorded [...] Date Recorded Dental: Regular Dentist No 11/01/19 23 Employment Answer Date Recorded Employment status Unemployed/not in th e paid workforce and NOT seeking employment 12/09/2023 Housing Stability Answer Date Recorded What is your living situation today? I have [facility] to live 12/09/2023 Education Answer Date [...] T Respiratory Rate 20 07/11/2023 1:00 PM BASKETBALL SCOUT Oxygen Saturation 96% 07/11/2023 1:00 PM BASKETBALL SCOUT Inhaled Oxygen Concentration - - Weight 72.8 kg (160 lb 9.6 oz) 01/13/2024 2:51 P M CDT Height 167.6 cm (5' 6) 12/16/2023 1:32 PM CDT Body Mass Index 25.92 12/16/2023 1:32 PM CDT Plan of Treatment Health Maintenance Due Date Last Done Comments Pneumococcal vaccine (0-64 years) (1 of 2 - PCV) 1997 Hepatitis B Vaccines (2 of 3 - 3-dose series) 01/28/2002 12/31/2001 DTaP,Tdap,and Td Vaccines (5 - Tdap) 2002 11/21/1996, 07/02/1994, 01/02/1994, Additional history exists Lipid (Cholesterol) Screening 03/04/2019 03/04/2018 Asthma Action Plan 07/23/2023 Asthma Control Test Questionnaire 07/23/2023 Asthma Management/Exacerbation Questionnaire (AMQ/AEQ) 07/23/2023 COVID-19 Vaccine (1 - season) 2024 Influenza Vaccine (#1) 2024 RSV vaccine - (32-36 weeks) or 60+ years (1 - Risk 1-dose series) 05/29/2024 Cervical Cancer Screening 06/10/20272022, 06/10/2022, 12/07/2018 Depression Screening (Annual PHQ-2) Completed 01/13/2024 HIV Screening Completed 01/13/2024 Hepatitis C Screening Completed 01/13/2024 HPV Vaccines Aged Out No longer eligi ble based on patient's age to complete this topic Procedures Procedure Name Priority Date/Time Associated Diagnosis [...] GENOTYPING, PCR, THINPREP Routine 06/10/2022 2:36 PM BASKETBALL SCOUT from Last 3 Months or Most Recently Relevant to Health Maintenance Results * Testing Location (01/13/2024 4:53 PM CDT) Testing Location [facility] DEFAULT 01/13/2024 4:57 PM CDT NPRG Blood 01/13/2024 4:53 PM CDT 01/13/2024 4:57 PM CDT Elisa Byrne APRN, C.N.P., M.S.N. LAB BLOOD BA NK TEST ORDERABLES Final Result Performing Organization Address City/[facility]/ZIP Co de Phone Number [facility] [address] [place] [address], [facility] [place] [address] [address] [place] [address] * Type and Screen (with Reflex Antibody [...] 4:53 PM CDT 01/13/2024 4:57 PM CDT Elisa Byrne APRN, C.N.P., M.S.N. LAB BLOOD BA NK TEST ORDERABLES Final Result Performing Organization Address [facility] Co de Phone Number [facility] [address] [place] [address], [address] [address] * HBs Antibody , Serum (01/13/2024 4:52 PM CDT) HBs Antibody , S Positive 01/14/2024 2:16 AM CDT MKTO Comment: Patient is considered to have been exposed to HBV or immune from HBV vaccination. ----REFERENCE VALUE---- Unvaccinated: Negative Vaccinated: Positive HBs Antibody, Quantitative, S 12.12 mIU/mL 01/14/2024 2:16 AM CDT MKTO Comment: ----REFERENCE VALUE---- <8.50: Negative 8.50-11.49: Indeterminate >=11.50: Positive Blood (Blood, Venous) 01/13/2024 4:52 PM CDT 01/13/2024 10:17 PM CDT Elisa Byrne APRN, C.N.P., M.S.N. LAB MICROBIO LOGY - BLOOD ORDERABLES Final Result [facility] [address] [place] [address], [facility] in [address] [address] * Hepatitis C Virus Antibody Screen (01/13/2024 4:52 PM CDT) Pathologist [facility] HCV Ab Scrn , S Negative Negative 01/15/2024 11:37 AM CDT [facility] Comment: Consumption of high-dose biotin supplement within 12 hours of blood collection for this test can cause false-negative results. Blood (Blood, Venous) 01/13/2024 4:52 PM CDT 01/15/2024 7:17 AM CDT Elisa Byrne APRN, C.N.P., M.S.N. LAB MICROBIO LOGY - BLOOD ORDERABLES Final Result Performing Organization Address City/[facility]/ZIP Co de Phone Number [facility] [address] [place] [address] [facility] [address] [place] [address] * Panorama Screen - Sent Out Lab (01/13/2024 4:52 PM CDT) Panorama Screen SEE COMMENT 01/27/2024 10:45 AM CDT [facility]EVIN Comment: For final report, select Lab-Send Out Lab Results hyperlink below. Blood (Blood, Venous) 01/13/2024 4:52 PM CDT 01/15/2024 7:06 AM CDT Narrative [employer] - 01/27/2024 10:45 AM CDT Specimen Information: Specimen ID: [id number] Specimen Type: Blood Specimen Collection Start Date: 01/13/2024 ??4:52 PM Specimen Received Date: 01/15/2024 ??7:06 AM Specimen ID: [id number] Specimen Type: Blood Specimen Collection Start Date: 01/13/2024 ??4:53 PM Specimen Received Date: 01/15/2024 ??7:06 AM Elisa Byrne APRN C.N.P., M.S.N. LAB GENETIC TESTING Final Result [facility] [employer] [address] [place] [address], [facility] KEVIN [employer] [address] [place] [address] * HIV-1/-2 Ag and Ab Scrn, Plasma (01/13/2024 4:52 PM CDT) HIV Ag/Ab Scrn, P Negative Negative 01/13/2024 [...] P Negative Negative 01/13/2024 9:01 PM CDT [facility] Comment: Negative result does not rule out HIV infection. If exposure to HIV infection occurred <14 days ago, contact the laboratory to request addition of HIV-1/HIV-2 RNA detection , Plasma (HPP12). Blood (Blood, Venous) 01/13/2024 4:52 PM CDT 01/13/2024 7:52 PM CDT Elisa Byrne APRN, C.N.P., M.S.N. LAB MICROBIO LOGY - BLOOD ORDERABLES Final Result Performing Organization Address [facility] Co de Phone Number [address] [address], [facility] in [address] [address] * Rubella Antibodies, IgG (01/13/2024 4:52 PM CDT) Rubella Ab, IgG, S Positive 01/13/2024 8:41 PM CDT [facility] Comment: Results suggest response to immunization or prior exposure to the virus. ----REFERENCE VALUE---- Vaccinated: Positive (>=1.0 AI) Unvaccinated: Negative (<=0.7 AI) Rubella IgG Antibody Index 1.4 01/13/2024 8:41 PM CDT [facility] Blood (Blood, Venous) 01/13/2024 4:52 PM CDT 01/13/2024 7:52 PM CDT Dylon Conway APRN.N.P., M.S.N. LAB MICROBIO LOGY - BLOOD ORDERABLES Final Result Performing Organization Address [facility] Co de Phone Number [address] [address], [facility] in [address] [address] * (ABNORMAL) CBC with Differential, Blood (01/13/2024 4:52 PM CDT) Pathologist [facility] Hemoglobin 12.1 11.6 - 15.0 g/dL 01/13/2024 [...] 4:52 PM CDT 01/13/2024 4:57 PM CDT us Elisa Byrne APRN, C.N.P., M.S.N. LAB BLOOD AD D-ON Final Result [facility] [address] [place] [address], [facility] NPRG [place] [address] [place] [address] * Varicella-Zoster Antibody, IgG, Serum (01/13/2024 4:52 PM CDT) Varicella-Zoster Ab, IgG, S Positive 01/13/2024 8:41 PM CDT [facility] Comment: Results suggest response to immunization or prior exposure to the virus. ----REFERENCE VALUE---- Vaccinated: Positive (>=1.1 AI) Unvaccinated: Negative (<=0.8 AI) Varicella IgG Antibody Index 1.3 01/13/2024 8:41 PM CDT [facility] Blood (Blood, Venous) 01/13/2024 4:52 PM CDT 01/13/2024 7:52 PM CDT Dylon Conway APRN.N.P., M.S.N. LAB MICROBIO LOGY - BLOOD ORDERABLES Final Result [facility] [address] [place] [address], [facility] in [place] [address] [place] [address] * US OB First Trimester (01/13/2024 4:36 PM CDT) Only the most recent of2 resultswithin the time period is included. Anatomical Region Laterality Modality Body, Ultrasound OB RST LOS, Ultrasound ARZ LOS N/A Ultrasound Narrative 01/13/2024 4:36 PM CDT Exam: Viability Comparison: 12/16/23 Findings: Gestational age and LG by LMP or OB/EHR assignment: 12w3d ?? LG: 07/24/2024 Age and LG by current ultrasound measurments: 12w3d ?? GL: 07/24/2024 Intra-uterine: Embryo and Gestational sac Heart Rate: 146 bpm. Maternal ovaries/adnexae: not examined Impression : Fetus with interval growth and development since last ultrasound, size consistent with earlier dating and confirms EDC of 07/24/24. Fetus in variable positions during exam today. us Elisa Byrne APRN, C.N.P., M.S.N. IMG OB US IA OCEDURES Final Result * Bacterial Culture, Aerobic + Susceptibility, Urine (01/13/2024 4:33 PM CDT) Only the most recent of2 resultswithin the time period is included. Urine Culture Urogenital microbiota, susceptibilities not performed per laboratory criteria. 01/14/2024 3:41 PM CDT MKTO Urine (Urine, Midstream) 01/13/2024 4:33 PM CDT 01/13/2024 10:19 PM CDT Comment:Specimen Source Site : Urine Elisa Byrne APRN, C.N.P., M.S.N. LAB MICROBIOLOGY - GENERAL ORDERABLES Final Result Performing Organization Address [facility]/ZIP Co de Phone Number [facility] [address] [place] [address], [place] [address] * Chlamydia / Gonorrhoeae Amplified RNA (01/13/2024 4:33 PM CDT) Source Swab, Vagina 01/14/2024 8:07 AM CDT MKTO Chlamydia trachomatis amplified RNA Negative Negative 01/14/2024 8:07 AM CDT MKTO Source Swab, Vagina 01/14/2024 8:07 AM CDT MKTO Neisseria gonorrhoeae amplified RNA Negative Negative 01/14/2024 8:07 AM CDT MKTO Swab (Vagina) 01/13/2024 4:3 3 PM CDT 01/13/2024 10:19 PM CDT Elisa Byrne APRN, C.N.P., M.S.N. LAB MICROBIOLOGY - GENERAL ORDERABLES Final Result Performing Organization Address City/[facility]/ZIP Co de Phone Number [facility] [address] [place] [address], [facility] MKTO [address] [place] [address], [place] [address] * (ABNORMAL) Urinalysis, with Microscopic: Urine, Midstream [...] 8.0 01/13/2024 4:38 PM CDT NPRG Specific [place] 1.025 1.001 - 1.035 01/13/2024 4:38 PM [...] 01/13/2024 4:35 PM CDT us Elisa Byrne APRN, C.N.P., M.S.N. LAB URINE OR DERABLES Final Result [facility] [address] [place] [address], [facility] NPRG [facility] [address] [place] [address] * US OB First Trimester and Transvaginal [...] 6 d, LG: 07/26/2024 INTRAUTERINE Pole: Normal, [place]-Rump Length: 6.6 mm Gestational Sac: Normal Yolk [...] w 6 d, LG:07/26/2024 INTRAUTERINE Pole: Normal, [place]-Rump Length: 6.6 mm Gestational Sac: Normal Yolk [...] Byrne APRN C.N.P., M.S.N. IMG OB US [place] OCEDURES Final Result * (ABNORMAL) Urinalysis with [...] 8.0 11/25/2023 12:03 PM CDT NPRG Specific [place] 1.020 1.001 - 1.035 11/25/2023 12:03 PM CDT NPRG Urobilinogen 0.2 0.2 - 1.0 mg/dL 11/25/2023 12:03 PM CDT NPRG Urine (Urine, Midstream) 11/25/2023 11:57 AM CDT 11/25/2023 12:00 PM CDT us Elisa Byrne APRN, C.N.P., M.S.N. LAB URINE OR DERABLES Final Result Performing Organization Address City/[facility]/ZIP Co de Phone Number [facility] [address] [place] [address], [facility] NPRG [address] [address] * (ABNORMAL) Microscopic Manual (11/25/2023 11:57 AM [...] 7 AM CDT 11/25/2023 12:00 PM CDT us Sarah Conway APRNNKate., M.S.N. LAB URINE OR DERABLES Final Result Performing Organization Address City/[facility]/ZIP Co de Phone Number [facility] [address] [place] [address], [facility] NPRG [address] [address] * (ABNORMAL) hCG (Human Chorionic Gonadotropin), Quantitative, (11/25/2023 11:56 AM CDT) Only the most recent of2 resultswithin the time period is included. HCG, Quantitative, , P [address](H) <5 IU/L 11/25/2023 12:49 PM CDT NPRG Blood (Blood, Venous) 11/25/2023 11:56 AM CDT 11/25/2023 11:59 AM CDT us Elisa Byrne APRN, C.N.P., M.S.N. LAB BLOOD AD D-ON Final Result [facility] [address] [place] [address], [facility] NPRG [facility] [address] [place] [address] * HPV with Genotyping, PCR, ThinPrep (06/10/2022 2:36 PM BASKETBALL SCOUT) HPV with Genotyping, ThinPrep, PCR Negative Negative 06/11/2022 2:27 PM BASKETBALL SCOUT MKTO Comment: Negative for high risk HPV [...] correlated with patient's history, clinical presentation, and PHLEBOTOMY DIRECTOR cytology report. 06/10/2022 2:36 PM BASKETBALL SCOUT 06/11/2022 7:20 AM BASKETBALL SCOUT us Elisa Byrne APRN, C.N.P., M.S.N. LAB MICROBIOLOGY - GENERAL ORDERABLES Final Result [facility] [address] [place] [address], [place] MKTO [facility] in [place] [address] [place] [address] from Last 3 Months or Most Recently Relevant to Health Maintenance Insurance [place] MEDICAID
--- OUTSIDE RECORDS SUMMARY | 2024-02-15 14:28 | XMS_ITS | Encounter Summary ---
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 [address] [place] [phone] Social History Tobacco Use Types Packs/Day Years Used Date Smoking Tobacco: Former Cigarettes Passive Smoke Exposure: Past Smokeless Tobacco: Never Alcohol Use Standard Drinks/Week Comments No 0 (1 standard drink = 0.6 oz pur e alcohol) [facility] Utilities Answer Date Recorded In the past 12 months has [employer], gas, oil, or water [employer] threatened to shut off services in your [...] How often do you attend chur or amish services? More than 4 times per year 02/23/2020 Do you belong to any clubs o r organizations such as nondenominational groups, unions, fraternal or athletic groups, or [...] Answer Date Recorded PHQ-2 Score 0 01/13/2024 [facility] - [...] your living situation today? I have a [facility] place to live 12/09/2023 Education Answer [...] on file documented as of this encounter Procedures Procedure Name Priority Date/Time Associated Diagnosis Comments US OB FIRST TRIMESTER RAD - Routine (most inpatients and all outpatients) 01/13/2024 4:36 PM CDT Examination Normal First Trimester (HCC) documented in this encounter Results * US OB First Trimester (01/13/2024 4:36 PM CDT) Anatomical Region Laterality Modality Body, [...] positions during exam today. us Elisa Byrne APRN C.N.P., M.S.N. IMG OB US MA OCEDURES Final Result documented in this encounter Visit Diagnoses Not on filedocumented in this encounter Additional Health Concerns Assessment Noted Time PHQ-9 Depression Total Score: 10 024 4:33 PM CDT documented as of this encounter
--- OUTSIDE RECORDS SUMMARY | 2024-02-15 14:28 | XMS_ITS | Encounter Summary ---
Author Organization [facility] Address [address] [place] [address] Care Team Providers Care Rural Sociologist Name Role Phone Unavailable Primary Care Provider Unavailabl e Encounter Details Date Type Department Care Team (Latest Contact Info) Description 11/25/2023 11:42 AM CDT - 11/25/2023 11:59 PM CDT Hospital Encounter Department of Laboratory Medicine in [place], [place] [address] [place] [phone] Elisa Byrne, JOSÉ, C.N.P., M.S.N. [address] [place] [phone] Dysuria Discharge Disposition: Home or Self Care Social History Tobacco Use Types Packs/Day Years Used Date Smoking Tobacco: Some Days Cigarettes Smokeless Tobacco: Never Alcohol Use Standard Drinks/Week Comments No 0 (1 standard drink = 0.6 oz pur e alcohol) Humiliation, Afraid, Rape, and Kick questionnair e [...] How often do you attend chur or mosque services? More than 4 times per year 02/23/2020 Do you belong to any clubs o r organizations such as latter-day groups, unions, [employer] or athletic groups, or school groups? Yes [...] 10/31/2022 PHQ-2 Answer Date Recorded PHQ-2 Score 6 02/23/2020 [facility] - [...] to strenuous exercise (like a brisk walk)? 3 days 10/31/2022 On average, how many minutes do you engage in exercise at this level? 40 min 10/31/2022 Hunger Vital Sign Answer Date Recorded Within the past 12 months, y ou worried that your food would run out before you got the money to buy more. Sometimes true Within the past 12 months, t he food you bought just didn't last and you didn't have money to get more. Sometimes true PRAPARE - Transportation Answer Date Re corded In the past 12 months, has l ack of transportation kept you from medical appointments or from getting medications? No 10/04 In the past 12 months, has l ack of transportation kept you from meetings, work, or from getting things needed for daily living? No 10/31/2022 Depression Answer Date Recor ded PHQ-9 Total Score (max 27) 26 02/22 Nutrition Answer Date Recorded On average, how many serving s of fruits and vegetables do you eat per day (serving size is equal to 1 cup or approximately the size of a tennis ball)? 0-2 10/31/2022 Dental Answer Date Recorded Dental: Regular Dentist No 11/01/19 23 Employment Answer Date Recorded Employment status Employed and actively working without restrictions 10/31/2022 Housing Stability Answer Date Recorded What is your living situation today? I have a [facility] place to live 10/31/2022 Education Answer Date Recorded What is the highest level of school you have completed or the highest degree you have received? GED or equivalent Comments Unknown Sex and Gender Information Value Date Recorded Sex Assigned at Female 01/18/2018 1:29 PM CDT Legal Sex Female 11:44 AM CDT Gender Identity Female 01/18/2018 1:29 PM CDT Sexual Orientation Bisexual 01/18/2018 1: 29 PM CDT documented as of this encounter Medications at Time of Discharge albuterol 90 mcg/actuation inhalerIndications: Bronchitis,Asthma Tobacco User Inhale 1 puff every 4 (four) hours as needed for shortness of breath. 8 g 07/11/2023 amphetamine-dextroa mphetamine (ADDERALL XR) 30 mg 24 hr capsule 06/10/2023 clobetasoL (TEMOVATE) 0.05 % ointmentIndications :Lichen Sclerosus Apply a thin layer to affected tissue once weekly for maintenance. May increase to daily for 2 weeks with flare of symptoms. Rub into tissue for 30 seconds 15 g 3 07/23/2023 hydrOXYzine (ATARAX) 25 mg tablet Take 25 mg by mouth every 6 (six) hours as needed for anxiety. adapalene (DIFFERIN) 0.1 % gel Apply 1 Application topically at bedtime. Apply to plantars wart twice daily under occlusion. 45 g 1 05/05/2023 12/01/19 cimetidine (TAGAMET) 800 mg tablet TAKE 1 TABLET(800 MG) BY MOUTH TWICE DAILY 180 tablet 1 04/22/2023 12/16/19 gabapentin (NEURONTIN) 300 mg capsuleIndications: Myalgia Pelvic Floor Female,Superficial Dyspareunia Take 1 capsule (300 mg total) by mouth at bedtime. 90 capsule 3 09/29/2023 12/16/19 ondansetron ODT (ZOFRAN-ODT) 4 mg disintegrating tablet Dissolve 1 tablet (4 mg total) in the mouth every 8 (eight) hours as needed for nausea or vomiting. 20 tablet 11/10/2022 12/16/19 documented as of this encounter Plan of Treatment Not on file documented as of this encounter Procedures Procedure Name Priority Date/Time Associated Diagnosis Comments URINALYSIS WITH MICROSCOPIC IF INDICATED, U Routine 11/25/2023 11:57 AM CDT Dysuria HC URINALYSIS AUTO W MICRO Routine 11/25/2023 11:57 AM CDT BACTERIAL CULTURE, AEROBIC + SUSC, URINE Routine 11/25/2023 11:57 AM CDT Dysuria documented in this encounter Results * (ABNORMAL) Microscopic Manual (11/25/2023 11:57 AM [...] 7 AM CDT 11/25/2023 12:00 PM CDT Elisa Byrne APRN, C.N.P., M.S.N. LAB URINE OR DERABLES Final Result Performing Organization Address [facility]/ZIP Co de Phone Number [facility] [address] [place] [address], [facility] NPRG [facility] [address] [place] [address] * Bacterial Culture, Aerobic + Susceptibility, Urine (11/25/2023 11:57 AM CDT) Urine Culture Urogenital microbiota, susceptibilities not performed per laboratory criteria. 11/27/2023 7:28 AM CDT [facility] Urine (Urine, Midstream) 11/25/2023 11:57 AM CDT 11/25/2023 2:16 PM CDT Comment:Specimen Source Site : Urine Elisa Byrne APRN, C.N.P., M.S.N. LAB MICROBIOLOGY - GENERAL ORDERABLES Final Result Performing Organization Address [facility] Co de Phone Number [facility] [address] [place] [address], [facility] MKTO [facility] [place] [address] [place] [phone] * (ABNORMAL) Urinalysis with Microscopic if Indicated [...] 8.0 11/25/2023 12:03 PM CDT NPRG Specific [place] 1.020 1.001 - 1.035 11/25/2023 12:03 PM CDT NPRG Urobilinogen 0.2 0.2 - 1.0 mg/dL 11/25/2023 12:03 PM CDT NPR[facility] Urine (Urine, Midstream) 11/25/2023 11:57 AM CDT 11/25/2023 12:00 PM CDT Elisa Byrne APRN C.N.Terrence., M.S.N. LAB URINE OR DERABLES Final Result [facility] [address] [place] [address], [facility] NPRG [facility] [address] [place] [address] documented in this encounter Visit Diagnoses Diagnosis Dysuria documented in this encounter Additional Health Concerns Assessment Noted Time PHQ-9 Depression Total Score: 26 020 10:07 AM CDT documented as of this encounter
--- OUTSIDE RECORDS SUMMARY | 2024-02-15 14:28 | XMS_ITS | Encounter Summary ---
Author Organization [facility] Address [address] [place] [address] Care Team Providers Care Industrial Cook Name Role Phone Unavailable Primary Care Provider Unavailabl e Reason for Referral * Outpatient (Routine) - Closed Specialty Diagnoses / Procedures Referred By Contac t Referred To Contact Obstetrics and Gynecology Diagnoses Examination Normal First Trimester (HCC) Elisa Byrne APRN C.N.P., M.S.N. [address] [place] [address] Phone: tel: fax: [facility] Region Referral ID Status Reason Start Date Expiration Date Visits Re quested Visits Authorized [id number] Closed 12/16/2023 06/16/2025 1 1 Reason for Visit * Reason Comments Confirmation Of * Outpatient (Routine) - Closed Specialty Diagnoses / Procedures Referred By Contac t Referred To Contact Obstetrics and Gynecology Diagnoses Examination Normal First Trimester (HCC) Elisa Byrne APRN, C.N.P., M.S.N. [address] [place] [address] Phone: tel: fax: [facility] Region Referral ID Status Reason Start Date Expiration Date Visits Re quested Visits Authorized [id number] Closed 12/01/2023 06/01/2025 1 1 Encounter Details Date Type Department Care Team (Late st Contact Info) Description 12/16/2023 1:30 PM CDT Office Visit Department of Obstetrics and Gynecology in [place], [place] [address] [place] [address] Elisa Byrne, JOSÉ, C.N.P., M.S.N. [address] [place] [phone] Examination Normal First Trimester (HCC) Discharge Disposition: Home or Self Care Social History Tobacco Use Types Packs/Day Years Used Date Smoking Tobacco: Some Days Cigarettes Smokeless Tobacco: Never Alcohol Use Standard Drinks/Week Comments No 0 (1 standard drink = 0.6 oz pur e alcohol) [facility] Utilities Answer Date Recorded In the past 12 months has e [place], gas, oil, or water [employer] threatened to shut off services in your [...] Never 02/23/2020 How often do you attend [facility] or synagogue services? More than 4 times per year 02/23/2020 Do you belong to any clubs o r organizations such as jehovah's witness groups, unions, fraternal or athletic groups, or [...] Answer Date Recorded PHQ-2 Score 6 02/23/2020 [facility] Occupational Stress Questionnaire Answer Date Recorded [...] your living situation today? I have a [facility] place to live 12/09/2023 Education Answer [...] PM CDT documented as of this encounter Last Filed Vital Signs Vital Sign Reading Time Taken Comments Blood Pressure 123/79 12/16/2023 1:32 PM CDT Pulse 101 12/16/2023 1:32 PM CDT Temperature 37.1 ??C (98.8 ??F) 12/16/2023 1:32 PM CD T Respiratory Rate - - Oxygen Saturation - - Inhaled Oxygen Concentration - - Weight 71 kg (156 lb 9.6 oz) 12/16/2023 1:32 PM CDT Height 167.6 cm (5' 6) 12/16/2023 1:32 PM CDT Body Mass Index 25.28 12/16/2023 1:32 PM CDT documented in this encounter Patient Instructions * Patient Instructions* Elisa Byrne, BILINGUAL RECRUITER, C.N.P., M.S.N. - 12/16/2023 1:30 PM CDT Congratulations on your ! Thank you for trusting [facility] with your care. Thismessage contains education to support you during the first trimester of your . Please watch the video, Your Care, at the link below. This video link is for patient and family education use only. Do not post on websites or share publicly. [email or web address] Please review these materials via the hyperlinks below: Even if a Mother has HIV, Her Baby Doesn't Have To [id number] [facility] Guide to a Healthy Bookmark [id number] Standard Labs [id number] Why Should I Consider Giving My Baby Breast Milk [id number] Patient Billable Services [id number] You and Your Child WIC Can Help [id number] Education Classes Registration Website [id number] Public Health referral: [email or web address]/watch?v=[email or web address] [email or web address] The [employer] antimicrobial stewardship program has created a patient education video for patientswith a penicillin allergy label to explain the potential harms of this label and encourage them to seek out penicillin allergy testing. The video can be previewed here: [email or web address] Many patients have questions related to Genetic Screening during . We have included some information for you to review. Guide to a Healthy - Chapter 20: Genetic Screening Guide to a Health - Chapter 21: testing Optional Tests [id number] Genetic Support (Kazakh Version) Genetic Support ([place] Islander version) Managing Nausea and Vomiting During It is common for women to have nausea and vomiting while they are . It is especially commonduring the first three months. Although you may hear it called morning sickness, you can have nausea at any time of day. There are many things you can do to manage your nausea. This brochure gives you ideas about things you can do to ease your symptoms. It also tells you when to contact your health care provider. Usually you need to do a combination of things to feel better. Try the ideas listed here. For example, try eating small meals and going for walks. If you try something for 2 to 3 days, and you don't notice improvement, keep doing what you have been doing but add something new. You may want to keep a record of when you feel sick, so you can figure out what triggers your nausea. You should note: The time. Smells, noises, movement around you. Foods that don???t appeal to you. Avoid the triggers you can identify, if possible. If your nausea is related to other symptoms such as diarrhea, fever or chills, the nausea may not be related to your , and you should contact a member of your health care team. Try diet and lifestyle solutions first. If diet and lifestyle suggestions don???t work, you may need to add medications. Your nausea may not go away completely, but these ideas may help you manage it. And remember, for most women the nausea goes away in a few months. Diet Try these diet suggestions if you have nausea and vomiting: If you are nauseated, don???t worry about eating healthy foods. Just eat what appeals to you. Eat small, frequent meals that are high in carbohydrates and low in fat. Before you go to bed at night, eat a high protein snack. This may help to lessen your nausea in themorning. Examples are plain steven food cake, peanut butter and crackers, yogurt, string cheese, nuts or cottage cheese. Eat soda crackers or dry toast before you get out of bed in the morning. Stay hydrated. Drink small amounts of water, water with lemon or other fluids often during the day. Eat bland foods. Avoid spicy and fatty foods or foods with a strong odor. Try different flavors and textures - salty, sweet, tart, bland, crunchy, warm, cold, wet and dry. You may tolerate some flavors and textures better. Sip liquids at meals. Avoid hot or cold foods. Try clear liquids such as broth, gelatin or juice. If you have been vomiting, try a small amount ofclear liquid - such as a teaspoon - every 10 to 15 minutes at first. If you keep those down, try mild, non-fatty foods. Try carbonated drinks such as dalton michelle or clear sodas. Try dalton lollipops, lemon drops, fruit drops, peppermints, ice or chewing gum. If odors make you queasy, others may have to prepare meals and do the grocery shopping. If your vitamins make you queasy, take them at night or with a snack. You can try gummy maternity vitamins. If these things don???t help, try stopping the vitamins. You can restart them when your nausea is better. Lifestyle Try relaxation therapies such as deep breathing, progressive muscle relaxation or guided imagery. You can also listen to music. Get plenty of fresh air. If the weather allows, try to walk outside every day. Get enough rest. Being tired can make nausea worse. Typically, you need more rest than usual duringthe first three months of . Complementary treatments Try acupressure bands. These are also called Sea Bands. Try aromatherapy with isopropyl alcohol, dalton, peppermint, or other scents that help. Quease EASE inhaler gives you short-term relief only. Try herbal supplements such as dalton. Before you take dalton, talk with your health care provider. Cbpq-oyh-awsupkp supplements and medications If diet, lifestyle and complementary therapies do not improve your nausea a lot, you can try addingsome of the following. Before you try any medications or supplements, check with a member of your health care team. Herbal supplements such as dalton (250 mg. capsules four times a day). Vitamin B6 (pyridoxine). You must take this every day in the recommended dose (such as 25 mg. threetimes a day) in order for it to work. Usually you notice improvement in 48 to 72 hours after you start taking it. It won???t work if you only take it when you have nausea. Ask your health care provider how much you should take. If nothing already mentioned works, keep trying diet, lifestyle and complementary treatments in different combinations. One thing alone may not help. In addition, you can also add qfpe-irw-rfkxmro doxylamine (Unisom, Aldex AN) at bedtime along with the vitamin B6. Usually the dose of doxylamine is 10 mg. or ?? a 25-milligram tablet. Ask your health care provider how much you should take. Doxylamine is used as a sleep aid. If taking it at night helps you, you can add additional doses along with the vitamin B6 during the day. Sometimes, prescription medication or IV hydration may be needed. When to contact a member of your health care team Contact a member of your health care team if you notice the following. If you have signs of dehydration, which include: Less urination than usual. Concentrated, dark urine. Dry mucus membranes. Racing heart. Fainting. If you haven???t been able to keep down any food or fluids for 24 hours. PHONE NUMBERS TO CALL: If you have questions about this information or about your , call: During work hours, Thursday - Thursday [place] [phone] After hours and on weekends or holidays [employer] Triage: [phone] This material is for your education and information only. This content does not replace medical advice, diagnosis or treatment. New medical research may change this information. If you have questionsabout a medical condition, always talk with your health care provider. ?? 2013 [facility] Medical Education and Research ([facility]). All rights reserved. MEDICATIONS SAFE DURING AND Every woman who is wants to do the right thing for her baby. There are many concerns or difficulties a woman can encounter. Many medications cross the placenta and are also excretedin breast milk. Therefore, it is best to avoid medications during , especially during the first trimester and while nursing. When you are not feeling well, it is often helpful to reflect on what has happened during your day. Have you skipped a meal, are you drinking enough fluids, are you exhausted? Take care of your self first. In order to help you, we have listed ideas and some medications that may help and are considered safe during . Remember, the least amount of medication is always the best. Please call us at if your symptoms are not relieved after two to three days, become worse, or if you have questions about these or any other medications. Problem Treatments Call Provider If Colds, Nasal Congestion, Cough and Fever Steam to clear sinuses Saline nose drops, Neosynephrine, Sudafed, Tylenol, Actifed, Dristan and Tylenol Cold and Flu Plain cough medicine, like Robitussin, for no more than a week and Afrin Nasal [place] only as a lastresort - Do Not Use for more than 3 days Fever > 100.4 Coughing up green mucus Sore throat Gargle with warm salt water, popsicles, or suck on hard candy Lozenges (alcohol free) Severe or persistent sore throat Fever > 100.4 Mild headache Calm, quiet atmosphere, cool washcloths to head, rest, 2 quarts of water each day Tylenol (do not take aspirin, ibuprofen, Aleve, Motrin, or Naprosyn) Severe or persistent headache Visual changes with headache Backache Warm bath, heating pad, pelvic rock exercises, good posture and massage Tylenol (Okay to use regular or extra strength) Back pain at the waist level with fever and chills Rhythmic backache with or without cramping before your 9th month Constipation Plenty of fluids, prune juice and fresh fruits and vegetables Citrucel, Colace, Fibercon, Metamucil, Milk of Magnesia and Senokot Severe straining Bloody stool or bleeding with bowel movement Heartburn Small frequent meals. Avoid laying down after eating. Eat cashews or hazelnuts. Avoid leaving things in your mouth for over five minutes (Gum, Life Savers, hard candy) Maalox, Tums, Mylanta or Papaya tablets with meals No relief Hemorrhoids Sitz bath (Warm water soaks). Soak in Epsom salt bath. Chilled witch ramona packs. Tuck, Preparation H, Anusol or Tronolane Cream Bleeding or severe pain Rectal pain Insomnia Do regular exercise. Try to maintain a regular sleep pattern. Elevate the head of the bed to sleep. Relaxation tapes and try a warm cup of milk with a warm bath. Tea-chamomile, catnip or peppermint tea Several days of very poor sleep affecting quality of life Nausea, vomiting or morning sickness Crackers next to bed. Small frequent meals. Dalton michelle or dalton root tea, raspberry or mint tea, Sea Bands (Acupressure bands) Vitamin B6 (25 mg by mouth three times per day) Unable to keep anything down (Including liquids) in24 hours Persistent vomiting Dizziness Diarrhea Clear liquids until diarrhea resolves, then eat banana, rice, applesauce or dry toast After 12 weeks: Kaopectate and Imodium for less than 24 hours only Diarrhea persists Blood in stool Uterine cramping Allergy Benadryl 24 mg for 6-to-8 hours as needed Symptoms persist Yeast infection Use as directed: Monistat or Terazol Odor to discharge Symptoms persist Change in discharge DO NOT USE - AVOID THESE ESSENTIAL OILS DURING AND (see lists below) Essential Oil Latin Name Aniseed Pimpinella anisum Basil ct. estragole Ocimum basilicum Birch Betula lenta *Kenthor Cinnamomum camphora Hyssop Hyssopus officinalis Mugwort Artemisia vulgaris Parsley seed or leaf Petroselinum sativum Pennyroyal Mentha pulegium David Salvia officinalis Tansy Tanacetum vulgare Tarragon Artemisia dracunculus Thuja Thuja occidentalis Capitanejo Gaultheria procumbens [place]wood Artemisia absinthium *Note that *Camphor is not the same as Ho Wood/Ho Walsh chemotype Linalool (Cinnamomum camphora ct. Linalool), which has no known contraindications. documented in this encounter Progress Notes * Elisa Byrne APRN, C.N.P., M.S.N. - 12/16/2023 1:30 PM CDT SUBJECTIVE CHIEF COMPLAINT/REASON FOR VISIT Confirmation of Visit HISTORY OF PRESENT ILLNESS Shanika Du is a 33 y.o. @ 8w3d presenting for her confirmation of visit. She presents with her , Trevor. Patient's last menstrual period was 10/18/2023 (exact date). and reports history of regular periods. The couple was trying to conceive and are excited. 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 Estimated Date of Delivery: 07/24/24 determined by LMP consistent with 6 and 8 week ultrasound This was planned and desired Use of control immediately prior to : None Any occupational or environmental exposure concerns: None OB History 7 Para 1 Term 1 AB 5 Living 1 SAB 5 IAB Ectopic Molar Multiple Live Births 1 OBSTETRICAL RISK FACTORS: Preeclampsia and delivery for breech presentation; history of recurrent early loss Twin ? [x] NO [] YES [ Folic Acid 1 mg PO daily] History of NTD? [x] NO [] YES [ Folic Acid 4 mg PO daily] History of Thyroid Disorder? [x] NO [] YES [ TSH levels ] History of pre-eclampsia/HELLP [] NO [x] YES [Baseline labs ] Advanced Maternal Age? [x] NO [] YES [Genetic Testing] Pre-Gestational Diabetes [x] NO [] YES [Hgb A1c] History of <37W [x] NO [] YES [ Cervical Length by TVUS starting 16 weeks every 2 week till 24 weeks] Past medical, surgical and family history has been reviewed and updated including allergies and current medication OBJECTIVE BP 123/79 (BP Location: Left arm, Patient Position: Sitting, Cuff Size: Regular) Pulse 101 Temp37.1 ??C (Temporal) Ht 167.6 cm Wt 71 kg LMP 10/18/2023 (Exact Date) BMI 25.28 kg/m?? DIAGNOSTICS I have reviewed previously performed/collected OB ultrasound(s). ACOG Guidelines recommend using LG based on LMP consistent with 8 week ultrasound. Estimated Date of Delivery: 07/24/24 Dating recommendations were according to the ACOG Calculator Application. PHYSICAL EXAMINATION well developed, well nourished, in no acute distress, alert, and oriented X 3 Neurologic: Cranial nerves are grossly intact. ASSESSMENT / PLAN #1 Examination Normal First Trimester (HCC) Issues discussed at this visit: 1. Confirmed estimated due date and communicated it with the patient 2. Discussed nausea and vomiting in as well as addressed changes in nutritional demands in . Reviewed methods available for symptom management and after counselling the patient didrequest treatment. She will take Vitamin B6 and Unisom combination daily. Initiate Pepcid AC BID for nausea; history of gastric reflex. Has PRN Zofran 4 mg to use for severe symptoms, caution as thiscan cause constipation. 3. We also discussed first-trimester warnings for earlier follow-up and reporting of any worsening nausea and vomiting which is common in . 4. Discussed safe medication use in and reinforced vitamin supplementation. 5. Clobetasol will be continued once weekly for management of lichen sclerosus 6. ADHD. She stopped Adderall XR 30 mg a few weeks ago, feeling it was making her jittery and nauseated. She has noticed a harder time turning brain off and sleeping at night. She is uncertain if shewants to restart. We discussed potentially restarting 15 mg dosage at end of 1st trimester depending upon how she is doing. 7. History of preeclampsia. Will plan to initiate ASA 81 mg at 12-16 weeks. Discussed today. 8. Plans repeat at 39 weeks 9. Reviewed care and delivery options. She is uncertain what she would like to do. Will discuss at future visit. education and Initial OB laboratory studies will be completed at the 12 week gestational visit in addition to any earlier laboratory studies needing to be completed today based on obstetrical risk factors noted above. Upon review of the medical and obstetrical history the patient's level of care is designated as low(level 1). Based on level of risk, she will follow up for her 12 week Initial OB visit with shared care. All the patient questions and concerns were addressed and answered to satisfaction. Elisa Byrne APRN, C.N.P., M.S.N. documented in this encounter Plan of Treatment Scheduled Referrals Name Type Priority Associated Diagnoses Order Schedule Obstetrics and Gynecology - Obstetrics consult (clinic) Outpatient Referral Routine Examination Normal First Trimester (HCC) Expected: 01/13/2024 (Approximate), Expires: 03/17/2025 documented as of this encounter Procedures Procedure Name Priority Date/Time Associated Diagnosis Comments US OB FIRST TRIMESTER RAD - Routine (most inpatients and all outpatients) 12/16/2023 2:41 PM CDT Examination Normal First Trimester (HCC) documented in this encounter Results * US OB First Trimester (12/16/2023 2:41 PM CDT) Anatomical Region Laterality Modality Body, Ultrasound OB RST LOS, Ultrasound ARZ LOS N/A Ultrasound Narrative 12/16/2023 2:41 PM CDT Exam: Dating and viability Comparison: 11/30/2023 Findings: Gestational age and LG by LMP or OB/EHR assignment: 8w3d ?? LG: 07/24/2024 Age and LG by current ultrasound measurments: 8w5d ?? Intra-uterine: Embryo, Gestational sac, and Yolk sac Heart Rate: 141 bpm. Maternal ovaries/adnexae: not examined Impression : Single, intrauterine gestation with crown rump length measurement consistent with LMP and earlier dating US. Subtle movement present on exam today. us Sarah Conway APRNN.Terrence., M.S.N. IMG OB US WA OCEDURES Final Result documented in this encounter Visit Diagnoses Diagnosis Examination Normal First Trimester (HCC) documented in this encounter Additional Health Concerns Assessment Noted Time PHQ-9 Depression Total Score: 26 02/22/ 020 10:07 AM CDT documented as of this encounter
--- OUTSIDE RECORDS SUMMARY | 2024-02-15 14:28 | XMS_ITS | Encounter Summary ---
Author Organization [facility] Address [address] [place] [address] Care Team Providers Care Navigating Officer Name Role Phone Unavailable Primary Care Provider Unavailabl e Encounter Details Date Type Department Care Team (Late st Contact Info) Description 11/23/2023 Orders Only Department of Obstetrics and Gynecology in [place], [place] [address] [place] [phone] Elisa Byrne, JOSÉ, C.N.P., M.S.N. [address] [place] [phone] Bleeding Vaginal Trimester First (HCC) (Primary Dx) Social History Tobacco Use Types Packs/Day Years [...] 02/23/2020 How often do you attend chur ch or yarsani services? More than 4 times per year 02/23/2020 Do you belong to any clubs o r organizations such as amish groups, unions, fraternal or athletic groups, or [...] Answer Date Recorded PHQ-2 Score 6 02/23/2020 [facility] Questionnaire Answer Date [...] 11/01/19 Employment Answer Date Recorded Employment status Employed and actively working without restrictions 10/31/2022 Housing Stability Answer Date Recorded What is your living situation today? I have a [facility] place to live 10/31/2022 Education Answer Date [...] documented as of this encounter Visit Diagnoses Diagnosis Bleeding Vaginal Trimester First (HCC)- Primary documented in this encounter Additional Health Concerns Assessment Noted Time PHQ-9 Depression Total Score: 26 020 10:07 AM CDT documented as of this encounter
--- OUTSIDE RECORDS SUMMARY | 2024-02-15 14:28 | XMS_ITS | Encounter Summary ---
Author Organization [facility] Address [address] [place] [address] Care Team Providers Care Communication Signals Intelligence Name Role Phone Unavailable Primary Care Provider Unavailabl e Encounter Details Date Type Department Care Team (Latest Contact Info) Description 11/30/2023 3:36 PM CDT - 11/30/2023 11:59 PM CDT Hospital Encounter Department of Radiology in [place], [place] [address] [place] [phone] Elisa Byrne, JOSÉ, C.N.P., M.S.N. [address] [place] [phone] Bleeding Vaginal Trimester First (HCC) Discharge Disposition: [...] How often do you attend chur or synagogue services? More than 4 times per year 02/23/2020 Do you belong to any clubs o r organizations such as holiness groups, unions, fraternal or athletic groups, or [...] Answer Date Recorded PHQ-2 Score 6 02/23/2020 [facility] of Occupat ional Health - Occupational Stress [...] your living situation today? I have a [facility] place to live 10/31/2022 Education Answer [...] under occlusion. 45 g 1 05/05/2023 12/01/19 24 cimetidine (TAGAMET) 800 mg tablet TAKE 1 TABLET(800 MG) BY MOUTH TWICE DAILY 180 tablet 1 04/22/2023 12/16/19 24 gabapentin (NEURONTIN) 300 mg capsuleIndications: Myalgia Pelvic Floor Female,Superficial Dyspareunia Take 1 capsule (300 mg total) by mouth at bedtime. 90 capsule 3 09/29/2023 12/16/19 24 ondansetron ODT (ZOFRAN-ODT) 4 mg disintegrating tablet Dissolve 1 tablet (4 mg total) in the mouth every 8 (eight) hours as needed for nausea or vomiting. 20 tablet 11/10/2022 12/16/19 24 documented as of this encounter Plan of Treatment Not on file documented as of this encounter Procedures Procedure Name Priority Date/Time Associated Diagnosis Comments US OB FIRST TRIMESTER AND TRANSVAGINAL RAD - Routine (most inpatients and all outpatients) 11/30/2023 4:23 PM CDT Bleeding Vaginal Trimester First (HCC) documented in this encounter Results * US OB First Trimester and Transvaginal [...] 6 d, LG: 07/26/2024 INTRAUTERINE Pole: Normal, [place]-Rump Length: 6.6 mm Gestational Sac: Normal Yolk [...] w 6 d, LG:07/26/2024 INTRAUTERINE Pole: Normal, [place]-Rump Length: 6.6 mm Gestational Sac: Normal Yolk [...] an LG of 07/21/2024. us Elisa Byrne APRN, C.N.P., M.S.N. IMG OB US [place] OCEDURES Final Result documented in this encounter Visit Diagnoses Diagnosis Bleeding Vaginal Trimester First (HCC) documented in this encounter Additional Health Concerns Assessment Noted Time PHQ-9 Depression Total Score: 26 020 10:07 AM CDT documented as of this encounter
--- OUTSIDE RECORDS SUMMARY | 2024-02-15 14:28 | XMS_ITS | Encounter Summary ---
Author Organization [facility] Address [address] [place] [address] Care Team Providers Care Customer Service Coordinator Name Role Phone Unavailable Primary Care Provider Unavailabl e Reason for Visit * Reason Comments Initial Visit 12 07/08 * Outpatient (Routine) - Closed Specialty Diagnoses / Procedures Referred By Contac t Referred To Contact Obstetrics and Gynecology Diagnoses Examination Normal First Trimester (HCC) Elisa Byrne APRN, C.N.P., [place] [address] Phone: tel: fax: [facility] Region Referral ID Status Reason Start Date Expiration Date Visits Re quested Visits Authorized [id number] Closed 12/16/2023 06/16/2025 1 1 Encounter Details Date Type Department Care Team (Latest Contact Info) Description 01/13/2024 3:00 PM CDT Initial Department of Obstetrics and Gynecology in [place], [place] [address] [place] [phone] Elisa Byrne APRN, C.N.P., [place] [address] [place]: 12w3d Discharge Disposition: Home or Self Care Social History Tobacco Use Types Packs/Day Years Used Date Smoking Tobacco: Former Cigarettes Passive Smoke Exposure: Past Smokeless Tobacco: Never Tobacco Cessation:Counseling Given: Not Answered Alcohol Use Standard Drinks/Week Comments No 0 (1 standard drink = 0.6 oz pur e alcohol) [facility] Utilities Answer Date Recorded In the past [...] often do you attend chur ch or methodist services? More than 4 times per year 02/23/2020 Do you belong to any clubs o r organizations such as druze groups, unions, fraternal or athletic groups, or [...] Answer Date Recorded PHQ-2 Score 0 01/13/2024 [facility] of Occupat ional Health - Occupational Stress [...] your living situation today? [facility] 12/09/2023 Education Answer Date [...] Pulse 99 01/13/2024 2:51 PM CDT Temperature - - Respiratory Rate - - Oxygen Saturation - - Inhaled Oxygen Concentration - - Weight 72.8 kg (160 lb 9.6 oz) 01/13/2024 2:51 P M CDT Height - - Body Mass Index 25.92 12/16/2023 1:32 PM CDT documented in this encounter Progress Notes * Elisa Byrne, JOSÉ, C.N.P., M.S.N. - 01/13/2024 3:00 PM CDT Images from the original note were not included. SUBJECTIVE CHIEF COMPLAINT/REASON FOR VISIT New History and Physical Visit HISTORY OF PRESENT ILLNESS Shanika Du is a 33 y.o. @ 12w3d Estimated Date of Delivery: 07/24/24 by LMP consistent with 8 and 12 week ultrasound presenting for her intake history and physical examination. The patient's partner and/or father of the baby's name is Trevor Specific concerns today include: nausea, oral gum sensitivity and bleeding, and bloating PRIOR OBSTETRIC COMPLICATIONS: Preeclampsia , recurrent loss CURRENT OBSTETRICAL RISK FACTORS: previous and preeclampsia without severe features Twin ? [x] NO [] YES [Folic Acid 1 mg PO daily] History of NTD? [x] NO [] YES [Folic Acid 4 mg PO daily] History of pre-eclampsia/HELLP [] NO [x] YES [Baseline labs] History of Thyroid Disorder? [x] NO [] YES [TSH levels ] Advanced Maternal Age? [x] NO [] YES [Genetic Testing] Pre-Gestational Diabetes [x] NO [] YES [Hgb A1c] History of <37W [x] NO [] YES [Cervical Length by TVUS starting 16 weeks every 2 week till 24 weeks] REVIEW OF SYSTEMS A comprehensive review of systems was negative except for: Gastrointestinal: nausea Behavioral/Psych: Symptoms; Psychiatric: ADHD RELEVANT MEDICAL HISTORY/SCREENINGS: GYNECOLOGICAL HISTORY AND PROBLEMS: Lichen sclerosus CERVICAL CANCER SCREEN HISTORY: Up-To-Date and last performed on 06/10/2022 CLINICAL RISK ASSESSMENT FOR PREECLAMPSIA: Major Risk Factors (2 points): history of preeclampsia (especially when accompanied by an adverse outcome) Minor risk factors (1 point) : none, no risk factors Total score of major and minor risk factors: 2 The patient meets the criteria for prophylactic aspirin use given the composite score of at least 2points. Daily low-dose aspirin (81mg/daily) use in is considered safe and is associated with a low likelihood of serious maternal and/or complications. Hypertensive diseases of including gestational hypertension, pre-eclampsia with and without severe features as well as HELLP syndrome were briefly explained to the patient. The patient does not have contraindications to aspirin such as history of GI bleed, NSAID allergies or a history of gastric bypass. The risks and benefits of aspirin use were discussed with the patient and the patient will initiate aspirin therapy. Ideally, treatment should be initiated between 12 weeks and 28 weeks gestation (optimally before 16weeks) and continued daily until delivery. INCONTINENCE SCREEN: Urine: NONE; Anal: analincontin: NONE SEXUALLY TRANSMITTED ILLNESS: none GENETIC HISTORY SCREENING: negative PSYCHOSOCIAL ASSESSMENT: - reports uncontrolled mood disturbances or psychiatric concerns. PHQ-9 score = 10. She is currently off Adderall, contributing to restless mind and sleep difficulty - denies domestic violence/abuse concerns - denies history of or current alcohol or other substance abuse 02/23/2020 10:07 AM GAD7 Score KIRSTEN-7 Total Score (max 21) 21 12/15/2017 2:07 PM 02/23/2020 10:07 AM 01/13/2024 4:33 PM PHQ9 Score PHQ-9 Total Score (max 27) 18 26 10 OB History 7 Para 1 Term 1 AB 5 Living 1 SAB 5 IAB Ectopic Molar Multiple Live Births 1 I have reviewed the patient's past medical, surgical, and family history, including allergies and active medication list and have made changes as reported by the patient. Allergies Allergen Reactions Amoxicillin GI intolerance Rash and diarrhea Adhesive Rash Latex Rash OBJECTIVE BP 112/76 Pulse 99 Wt 72.8 kg LMP 10/18/2023 (Exact Date) BMI 25.92 kg/m?? PHYSICAL EXAMINATION Constitutional: well developed, well nourished, in no acute distress, alert, and oriented X 3 HEENT: Conjunctivae anicteric and not inspected. Maintained dentition and moist oral mucosa. No palpable cervical adenopathy or thyroid masses. Heart: regular rate and rhythm Lungs: Clear to auscultation, no audible adventitial sounds, equal bilateral air entry. Abdomen: abdomen is soft without significant tenderness, masses, organomegaly or guarding Lower Extremity: All normal.. Pelvic exam: - Vulva: normal female genitalia - Vagina: Mucosa with intact rugae and good estrogen effect - Discharge: normal and physiologic - Bladder and Urethra: Urethra normal - Cervix: Normal, no discharge. GCC done. - Bimanual exam: deferred Electron Beam Photo Mask Technician for pelvic exam or qualifying procedure: Chloé Wei, C.M.ADo DIAGNOSTICS Bedside Limited Abdominal OB US: viable intrauterine , 145 bpm I have also reviewed previously performed/collected OB ultrasound(s). ASSESSMENT / PLAN Diagnosis Plan 1. Examination Normal First Trimester (HCC) Obstetrics and Gynecology - Obstetrics consult (clinic) US OB First Trimester Rubella Antibodies, IgG CBC with Differential, Blood Type and Screen (with Reflex Antibody ID) HBs Antibody , Serum Hepatitis C Virus Antibody Screen HIV-1/-2 Ag and Ab Scrn, Plasma Varicella-Zoster Antibody, IgG, Serum Chlamydia / Gonorrhoeae Amplified RNA Urinalysis, with Microscopic: Urine, Midstream Bacterial Culture, Aerobic + Susceptibility, Urine Panorama Screen - Sent Out Lab OB COLLABORATIVE RISK DESIGNATION: Level 1 The patient was counselled regarding the safe prescribing and consumption of medications in . Reviewed precautions of first trimester signs and symptoms for earlier follow up including nausea and vomiting. Other comfort/relief measures for common discomforts of discussed as approjason ramos. Discussed travel precautions and work environment precautions in terms of risk of exposure to infections, or work related hazards. Discussed genetic screening and pros/cons of every approach given her level of risk. Non-invasive screen (NIPS) ordered They requested gender be reported, but does not want disclosed at timeof results. I will plan to call with results. Discussed nutrition, hydration, exercise, and weight gain recommendations. 7 kg- 11.5 kg The patient was screened for preeclampsia risk factors. The patient meets the criteria for prophylactic aspirin use given the composite score of at least 2 points. Daily low-dose aspirin (81mg/daily)use in is considered safe and is associated with a low likelihood of serious maternal and/or complications. Hypertensive diseases of including gestational hypertension, pre-eclampsia with and without severe features as well as HELLP syndrome were briefly explained to the patient. The patient does not have contraindications to aspirin such as history of GI bleed, NSAID allergies or a history of gastric bypass. The risks and benefits of aspirin use were discussed with the patient and the patient will initiate aspirin therapy. Ideally, treatment should be initiated between 12 weeks and 28 weeks gestation (optimally before 16 weeks) and continued daily until delivery. The standard obstetrical laboratory work up will be collected today and the patient will be contacted with results. Lichen sclerosus. Clobetasol will be continued once weekly for management 2. ADHD. She stopped Adderall XR 30 mg early in and has remained off. She is having difficult time with scattered thoughts and sleeping. We have discussed the possibility of restarting, balancing with her desire for a healthy and significant history of early loss. While I think it is reasonable to restart, she is fearful of doing anything that may impact the baby. I have explained that this would transfer through the placenta and to baby. In general, we monitor baby's growth with use of a stimulant during . Ultimately, we decided she will continue to hold off on restarting and readdress with her new obstetrical team next month. 3. History of preeclampsia. Will plan to initiate ASA 81 mg at 12-16 weeks. Prescribed today. 4. Plans repeat at 39 weeks FOLLOW UP PLAN: She is transferring care to [facility] and has appointment scheduled for early February already. I would welcome delivery notification and return of patient . We discussed reasons to contact care team before next appointment, if needed. PATIENT EDUCATION Ready to learn, barriers to learning: None. All patient question and concerns were addressed and answered to her satisfaction. Elisa Byrne APRN, C.N.P., M.S.N. documented in this encounter Plan of Treatment Not on file documented as of this encounter Procedures Procedure Name Priority Date/Time Associated Diagnosis Comments US OB FIRST TRIMESTER RAD - Routine (most inpatients and all outpatients) 01/13/2024 4:36 PM CDT Examination Normal First Trimester (HCC) BACTERIAL CULTURE, AEROBIC + SUSC, URINE Routine 01/13/2024 4:33 PM CDT Examination Normal First Trimester (HCC) CHLAMYDIA/GONORRHO EAE AMPLIFIED RNA Routine 01/13/2024 4:33 PM CDT Examination Normal First Trimester (HCC) URINALYSIS WITH MICROSCOPIC Routine 01/13/2024 4:33 PM CDT Examination Normal First Trimester (HCC) documented in this encounter Results * Type and Screen (with Reflex Antibody [...] 01/13/2024 4:57 PM CDT us Dylon Conway APRN.N.P., M.S.N. LAB BLOOD BA NK TEST ORDERABLES Final Result [facility] [address] [place] [address], [facility] NPRG [facility] [address] [place] [address] * Panorama Screen - Sent Out Lab (01/13/2024 4:52 PM CDT) Panorama Screen SEE COMMENT 01/27/2024 10:45 AM CDT [facility] Comment: For final report, select Lab-Send Out Lab Results hyperlink below. Blood (Blood, Venous) 01/13/2024 4:52 PM CDT 01/15/2024 7:06 AM CDT Narrative [employer] - 01/27/2024 10:45 AM CDT Specimen Information: Specimen ID: [id number] Specimen Type: Blood Specimen Collection Start Date: 01/13/2024 ??4:52 PM Specimen Received Date: 01/15/2024 ??7:06 AM Specimen ID: [id number] Specimen Type: Blood Specimen Collection Start Date: 01/13/2024 ??4:53 PM Specimen Received Date: 01/15/2024 ??7:06 AM Elisa Byrne APRN, C.N.P., M.S.N. LAB GENETIC TESTING Final Result [facility] [address] [address], [facility] KEVIN [address]. [address] [facility] [address] [place] [address] * Varicella-Zoster Antibody, IgG, Serum (01/13/2024 4:52 PM CDT) Varicella-Zoster Ab, IgG, S Positive 01/13/2024 8:41 PM CDT [facility] Comment: Results suggest response to immunization or prior exposure to the virus. ----REFERENCE VALUE---- Vaccinated: Positive (>=1.1 AI) Unvaccinated: Negative (<=0.8 AI) Varicella IgG Antibody Index 1.3 01/13/2024 8:41 PM CDT [facility] Blood (Blood, Venous) 01/13/2024 4:52 PM CDT 01/13/2024 7:52 PM CDT Elisa Byrne APRN, C.N.P., M.S.N. LAB MICROBIO LOGY - BLOOD ORDERABLES Final Result [facility] [address] [place] [address], [facility] [address] [address] * HIV-1/-2 Ag and Ab Scrn, Plasma [...] 4:52 PM CDT 01/13/2024 7:52 PM CDT us Sarah Conway APRNNKate., M.S.N. LAB MICROBIO LOGY - BLOOD ORDERABLES Final Result [facility] [address] [place] [address], [facility] in [place] [address] [place] [address] * Hepatitis C Virus Antibody Screen (01/13/2024 4:52 PM CDT) HCV Ab Scrn , S Negative Negative 01/15/2024 11:37 AM CDT [facility] Comment: Consumption of high-dose biotin supplement within 12 hours of blood collection for this test can cause false-negative results. Blood (Blood, Venous) 01/13/2024 4:52 PM CDT 01/15/2024 7:17 AM CDT Elisa Byrne APRN, C.N.P., M.S.N. LAB MICROBIO LOGY - BLOOD ORDERABLES Final Result Performing Organization Address City/[facility]/ZIP Co de Phone Number [facility] [address] [place] [address] [facility] [address] [place] [address] * HBs Antibody , Serum (01/13/2024 4:52 [...] 4:52 PM CDT 01/13/2024 10:17 PM CDT Sarah Conway APRNN.Jason., M.S.N. LAB MICROBIO LOGY - BLOOD ORDERABLES Final Result [facility] [address] [place] [address], [facility] in [place] [address] [place] [address] * (ABNORMAL) CBC with Differential, Blood (01/13/2024 4:52 PM CDT) Hemoglobin 12.1 11.6 - 15.0 g/dL 01/13/2024 [...] M.S.N. LAB BLOOD AD D-ON Final Result [facility] [address] [place] [address], [facility] NPRG [facility] [address] [place] [address] * Rubella Antibodies, IgG (01/13/2024 4:52 PM CDT) Rubella Ab, IgG, S Positive 01/13/2024 8:41 PM CDT [facility] Comment: Results suggest response to immunization or prior exposure to the virus. ----REFERENCE VALUE---- Vaccinated: Positive (>=1.0 AI) Unvaccinated: Negative (<=0.7 AI) Rubella IgG Antibody Index 1.4 01/13/2024 8:41 PM CDT [facility] Blood (Blood, Venous) 01/13/2024 4:52 PM CDT 01/13/2024 7:52 PM CDT Elisa Byrne APRN, C.N.P., M.S.N. LAB MICROBIO LOGY - BLOOD ORDERABLES Final Result Performing Organization Address City/[facility]/ZIP Co de Phone Number [facility] [address] [place] [address], [facility] [place] [address] [place] [address] * US OB First Trimester (01/13/2024 4:36 [...] Byrne APRN, C.N.P., M.S.N. IMG OB US [place] OCEDURES Final Result * Bacterial Culture, Aerobic + Susceptibility, Urine (01/13/2024 4:33 PM CDT) Urine Culture Urogenital microbiota, susceptibilities not performed per laboratory criteria. 01/14/2024 3:[address] [facility] Urine (Urine, Midstream) 01/13/2024 4:33 PM CDT 01/13/2024 10:19 PM CDT Comment:Specimen Source Site : Urine Elisa Byrne APRN, C.N.P., M.S.N. LAB MICROBIOLOGY - GENERAL ORDERABLES Final Result [facility] [address] [place] [address], [facility] [place] [address] * (ABNORMAL) Urinalysis, with Microscopic: Urine, Midstream [...] 8.0 01/13/2024 4:38 PM CDT NPR[facility] Specific [place] 1.025 1.001 - 1.035 01/13/2024 4:38 PM [...] M.S.N. LAB URINE OR DERABLES Final Result [facility] [address] [place] [address], [place] [facility] [address] [place] [address] * Chlamydia / Gonorrhoeae Amplified RNA (01/13/2024 4:33 PM CDT) Source Swab, Vagina 01/14/2024 8:07 AM CDT [facility] Chlamydia trachomatis amplified RNA Negative Negative 01/14/2024 8:07 AM CDT [facility] Source Swab, Vagina 01/14/2024 8:07 AM CDT [facility] Neisseria gonorrhoeae amplified RNA Negative Negative 01/14/2024 8:07 AM CDT [facility] Swab (Vagina) 01/13/2024 4:3 3 PM CDT 01/13/2024 10:19 PM CDT us Elisa Byrne APRN C.N.P., M.S.N. LAB MICROBIOLOGY - GENERAL ORDERABLES Final Result [facility] [place] [address], [facility] [address] [place] [address] documented in this encounter Visit Diagnoses Diagnosis Examination Normal First Trimester (HCC) Examination Normal First Trimester (HCC) documented in this encounter Additional Health Concerns Assessment Noted Time PHQ-9 Depression Total Score: 024 4:33 PM CDT documented as of this encounter
--- OUTSIDE RECORDS SUMMARY | 2024-02-15 14:28 | XMS_ITS | Encounter Summary ---
Author Organization [facility] Address [address] [place] [address] Care Team Providers Care Aircrewman Name Role Phone Unavailable Primary Care Provider Unavailabl e Encounter Details Date Type Department Care Team (Latest Contact Info) Description 11/25/2023 11:41 AM CDT Hospital Encounter Department of Laboratory Medicine in [place], [place] [address] [place] [phone] Elisa Byrne, JOSÉ, C.N.P., M.S.N. [address] [place] [phone] Test Discharge Disposition: Home or Self Care Social [...] often do you attend chur ch or church services? More than 4 times per year 02/23/2020 Do you belong to any clubs o r organizations such as tenriism groups, unions, fraternal or athletic groups, or [...] Answer Date Recorded PHQ-2 Score 6 02/23/2020 [facility] Questionnaire Answer Date Recorded [...] your living situation today? I have a [facility] place to live 10/31/2022 Education Answer [...] Procedure Name Priority Date/Time Associated Diagnosis Comments HUMAN CHORIONIC GONADOTROPIN (HCG), PAULA, Routine 11/25/2023 11:56 AM CDT Test documented in this encounter Results * (ABNORMAL) hCG (Human Chorionic Gonadotropin), Quantitative, (11/25/2023 11:56 AM CDT) HCG, Quantitative, , P 08151(H) <5 IU/L 11/25/2023 12:49 PM CDT [facility] Blood (Blood, Venous) 11/25/2023 11:56 AM CDT 11/25/2023 11:59 AM CDT us Elisa Byrne APRN, C.N.P., M.S.N. LAB BLOOD AD D-ON Final Result [facility] [address] [place] [address], [place] [facility] [address] [place] [address] documented in this encounter Visit Diagnoses Diagnosis Test documented in this encounter Additional Health Concerns Assessment Noted Time PHQ-9 Depression Total Score: 26 02/22/ 020 10:07 AM CDT documented as of this encounter
--- OUTSIDE RECORDS SUMMARY | 2024-02-15 14:28 | XMS_ITS | Encounter Summary ---
Author Organization [facility] Address [address] [place] [address] Care Team Providers Care Outboard Motor Mechanic Name Role Phone Unavailable Primary Care Provider Unavailabl e Reason for Referral * Outpatient (Routine) - Closed Specialty Diagnoses / Procedures Referred By Isai t Referred To Contact Obstetrics and Gynecology Diagnoses Examination Normal First Trimester (HCC) Elisa Byrne APRN C.N.P., M.S.N. [address] [place] [address] Phone: tel: fax: [facility] Region Referral ID Status Reason Start Date Expiration Date Visits Re quested Visits Authorized [id number] Closed 12/01/2023 06/01/2025 1 1 Scheduling Instructions Schedule as HOUSETRAILER SERVICER visit Encounter Details Date Type Department Care Team (Late st Contact Info) Description 12/01/2023 Orders Only Department of Obstetrics and Gynecology in [place], [place] [address] [place] [phone] Elisa Byrne APRN, C.N.P., M.S.N. [address] [place] [phone] Examination Normal First Trimester (HCC) (Primary Dx) Social History Tobacco Use [...] How often do you attend chur or buddhism services? More than 4 times per year 02/23/2020 Do you belong to any clubs o r organizations such as orthodox groups, unions, fraternal or athletic groups, or [...] Answer Date Recorded PHQ-2 Score 6 02/23/2020 [facility] - Occupational Stress Questionnaire Answer [...] your living situation today? I have a [facility] place to live 10/31/2022 Education Answer Date [...] as of this encounter Plan of Treatment Scheduled Referrals Name Type Priority Associated Diagnoses Order Schedule Obstetrics and Gynecology office visit (clinic) Outpatient Referral Routine Examination Normal First Trimester (HCC) Expected: 12/14/2023 (Approximate), Expires: 03/02/2025 documented as of this encounter Visit Diagnoses Diagnosis Examination Normal First Trimester (HCC)- Primary documented in this encounter Additional Health Concerns Assessment Noted Time PHQ-9 Depression Total Score: 26 020 10:07 AM CDT documented as of this encounter
--- OUTSIDE RECORDS SUMMARY | 2024-02-15 14:28 | XMS_ITS | Encounter Summary ---
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 [address] [place] [phone] Examination Normal First Trimester (HCC) Discharge Disposition: Home or Self Care Social History Tobacco Use Types Packs/Day Years Used Date Smoking Tobacco: Former Cigarettes Passive Smoke Exposure: Past Smokeless Tobacco: Never Alcohol Use Standard Drinks/Week Comments No 0 (1 standard drink = 0.6 oz pur e alcohol) [facility] Utilities Answer Date Recorded In the past 12 months has e electric, gas, oil, or water company [...] How often do you attend chur or zoroastrianism services? More than 4 times per year 02/23/2020 Do you belong to any clubs o r organizations such as yazdanism groups, unions, fraternal or athletic groups, or [...] Answer Date Recorded PHQ-2 Score 0 01/13/2024 [facility] - [...] your living situation today? I have a [facility] place to live 12/09/2023 Education Answer [...] at Time of Discharge albuterol 90 mcg/actuation inhalerIndications:B veltis,Asthma Tobacco User Inhale 1 puff every 4 (four) hours as needed for shortness of breath. 8 g 07/11/2023 amphetamine-dextroam phetamine (ADDERALL XR) 30 mg 24 hr capsule 06/10/[address] tablet Take 1 tablet (81 mg total) by mouth daily. Start anytime before 16 weeks gestation. 90 tablet 2 01/13/2024 clobetasoL (TEMOVATE) 0.05 % ointmentIndications: Lichen Sclerosus Apply a thin layer to affected tissue once weekly for maintenance. May increase to daily for 2 weeks with flare of symptoms. Rub into tissue for 30 seconds 15 g 3 07/23/2023 doxylamine (Unisom) 25 mg tablet Take 0.5 tablets (12.5 mg total) by mouth at bedtime as needed for sleep or nausea. 30 tablet 1 12/16/2023 folic acid 800 mcg tablet Take 800 mcg by mouth daily. hydrOXYzine (ATARAX) 25 mg tablet Take 25 mg by mouth every 6 (six) hours as needed for anxiety. multivitamin tablet Take 1 tablet by mouth daily. ondansetron ODT (Zofran-ODT) 4 mg disintegrating tablet Dissolve 1 tablet (4 mg total) in the mouth every 8 (eight) hours as needed for nausea or vomiting. 20 tablet 2 12/16/2023 pyridoxine, vitamin B6, (vitamin B-6) 25 mg tablet Take 1 tablet (25 mg total) by mouth 3 (three) times a day. 90 tablet 1 12/16/2023 documented as of this encounter Plan of [...] (HCC) documented in this encounter Results * Testing Location (01/13/2024 4:53 PM CDT) Testing Location [facility] DEFAULT 01/13/2024 4:57 PM CDT [facility] Blood 01/13/2024 4:53 PM CDT 01/13/2024 4:57 PM CDT us Elisa Byrne APRN C.N.P., M.S.N. LAB BLOOD BA NK TEST ORDERABLES Final Result [facility] [address] [place] [address], [facility] [address] [place] [address] * Type and Screen (with Reflex Antibody [...] BLOOD BA NK TEST ORDERABLES Final Result [facility] [address] [place] [address], [place] NPRG [facility] [address] [place] [address] * Panorama Screen - Sent Out Lab (01/13/2024 4:52 PM CDT) [facility] Panorama Screen SEE COMMENT 01/27/2024 10:45 AM CDT [facility] Comment: For final report, select Lab-Send Out Lab Results hyperlink below. Blood (Blood, Venous) 01/13/2024 4:52 PM CDT 01/15/2024 7:06 AM CDT Narrative [facility] - 01/27/2024 10:45 AM CDT Specimen Information: Specimen ID: [id number] Specimen Type: Blood Specimen Collection Start Date: 01/13/2024 ??4:52 PM Specimen Received Date: 01/15/2024 ??7:06 AM Specimen ID: [id number] Specimen Type: Blood Specimen Collection Start Date: 01/13/2024 ??4:53 PM Specimen Received Date: 01/15/2024 ??7:06 AM us Elisa Byrne APRN, C.N.P., M.S.N. LAB GENETIC TESTING Final Result [facility] [address] [place] [address], [place] KEVIN [facility] [address] [place] [address] * Varicella-Zoster Antibody, IgG, Serum (01/13/2024 4:52 PM CDT) Varicella-Zoster Ab, IgG, S Positive 01/13/2024 8:41 PM CDT [facility] Comment: Results suggest response to immunization or prior exposure to the virus. ----REFERENCE VALUE---- Vaccinated: Positive (>=1.1 AI) Unvaccinated: Negative (<=0.8 AI) Varicella IgG Antibody Index 1.3 01/13/2024 8:41 PM CDT [facility] Blood (Blood, Venous) 01/13/2024 4:52 PM CDT 01/13/2024 7:52 PM CDT us Dylon Conway APRN.N.P., M.S.N. LAB MICROBIO LOGY - BLOOD ORDERABLES Final Result [facility] [address] [place] [id number], [facility] [address] [address] * HIV-1/-2 Ag and Ab Scrn, Plasma (01/13/2024 4:52 PM CDT) Pathologist [facility] HIV Ag/Ab Scrn, P Negative Negative 01/13/2024 [...] P Negative Negative 01/13/2024 9:01 PM CDT [facility] Comment: Negative result does not rule out HIV infection. If exposure to HIV infection occurred <14 days ago, contact the laboratory to request addition of HIV-1/HIV-2 RNA detection , Plasma (HPP12). Blood (Blood, Venous) 01/13/2024 4:52 PM CDT 01/13/2024 7:52 PM CDT Elisa Byrne APRN, C.N.P., M.S.N. LAB MICROBIO LOGY - BLOOD ORDERABLES Final Result [address] [address], [facility] [place] [address] * Hepatitis C Virus Antibody Screen (01/13/2024 4:52 PM CDT) HCV Ab Scrn , S Negative Negative 01/15/2024 11:37 AM CDT [facility] Comment: Consumption of high-dose biotin supplement within 12 hours of blood collection for this test can cause false-negative results. Blood (Blood, Venous) 01/13/2024 4:52 PM CDT 01/15/2024 7:17 AM CDT Sarah Conway APRNNKate., M.S.N. LAB MICROBIO LOGY - BLOOD ORDERABLES Final Result [facility] [address] [place] [address] [facility] [address] [place] [address] * HBs Antibody , Serum (01/13/2024 4:52 [...] 4:52 PM CDT 01/13/2024 10:17 PM CDT us Elisa Byrne APRN, C.N.P., M.S.N. LAB MICROBIO LOGY - BLOOD [place] [address], [facility] [place] [address] * (ABNORMAL) CBC with Differential, Blood (01/13/2024 [...] 4:52 PM CDT 01/13/2024 4:57 PM CDT Sarah Conway APRNNKate., M.S.N. LAB BLOOD AD D-ON Final Result Performing Organization Address City/State/[facility] Co de Phone Number [facility] [address] [place] [address], [facility] NPRG [facility] [address] [place] [address] * Rubella Antibodies, IgG (01/13/2024 4:52 PM CDT) [facility] Signature Rubella Ab, IgG, S Positive 01/13/2024 8:41 [...] MICROBIO LOGY - BLOOD ORDERABLES Final Result [facility] [address] [place] [address], [facility] in [place] [address] [place] [address] documented in this encounter Visit Diagnoses Diagnosis Examination Normal First Trimester (HCC) documented in this encounter Additional Health Concerns Assessment Noted Time PHQ-9 Depression Total Score: 10 024 4:33 PM CDT documented as of this encounter
--- OUTSIDE RECORDS SUMMARY | 2024-02-15 14:28 | XMS_ITS | Encounter Summary ---
Author Organization [facility] Address [address] [place] [address] Care Team Providers Care Turning Sander Tender Name Role Phone Unavailable Primary Care Provider Unavailabl e Encounter Details Date Type Department Care Team (Latest Contact Info) Description 12/16/2023 1:35 PM CDT Silent Schedule Department of Obstetrics and Gynecology in [place], [place] [address] [place] [phone] Elisa Byrne, JOSÉ, C.N.P., M.S.N. [address] [place] [phone] Discharge Disposition: Home or Self Care Social History Tobacco Use Types Packs/Day Years Used Date Smoking Tobacco: Some Days Cigarettes Smokeless Tobacco: Never Alcohol Use Standard Drinks/Week Comments No 0 (1 standard drink = 0.6 oz pur e alcohol) [facility] Utilities Answer Date Recorded In the past 12 months has e [employer], gas, oil, or water [employer] threatened to shut off services in your [...] How often do you attend chur or orthodoxy services? More than 4 times per year 02/23/2020 Do you belong to any clubs o r organizations such as sabianism groups, unions, fraternal or athletic groups, or [...] Answer Date Recorded PHQ-2 Score 6 02/23/2020 [facility] - Occupational Stress [...] your living situation today? I have a [facility] place to live 12/09/2023 Education Answer [...] present on exam today. us Sarah Conway APRNNKate., M.S.N. IMG OB US [place] OCEDURES Final Result documented in this encounter Visit Diagnoses Not on filedocumented in this encounter Additional Health Concerns Assessment Noted Time PHQ-9 Depression Total Score: 26 020 10:07 AM CDT documented as of this encounter
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
--- OUTSIDE RECORDS SUMMARY | 2024-02-15 14:29 | XMS_ITS | Clinical Summary ---
[facility] Address [address] [place] [address] Care Team Providers Care Drug Room Clerk Name Role Phone Found, No Pcp MD Primary Care Provider Unavailab le Source Comments You are receiving this document as you are listed as the primary care provider,follow-up provider, or the patient has been referred to you for consultation.This is in compliance with the Medicare and[facility] EHR Incentive Program,which states Providers who transition their patient to another setting of careor provider of care or refers their patient to another provider of care shouldprovide summary care record for each transition of care or referral. [employer] Allergies Active Allergy Reactions Criticality Noted Date Comments Latex Rash 04/17/2009 Wound Dressing Adhesive Rash 04/18/2012 Medications Medication Sig Dispensed Refills Start Date End Date Status ketorolac (TORADOL) 10 MG tablet Take 1 Tablet (10 mg) by mouth every 6 hours as needed for Pain. 20 Tablet 03/25/2022 Active benzonatate (TESSALON) 100 MG capsule Take 1-2 Capsules (100-200 mg) by mouth three times a day as needed for Cough. 15 Capsule 03/25/2022 Active Active Problems Problem Noted Date Diagnosed Date Symptom associated with female genital organs Overview (12/24/2016): LW Modifier: Normal pelviscopy 2006 LW Onset: 2005 ; Pelvic Pain Female Chronic Constipation 09/20/2006 Overview (12/24/2016): Constipation NOS Diffuse connective tissue disease 07/14/2006 Overview (12/24/2016): LW Modifier: dx at [facility]gen[facility] c/s pending LW Onset: ; Connective Tissue Disease NOS Malaise and fatigue 06/26/2006 Overview (12/24/2016): Fatigue Epistaxis 06/26/2006 Excessive or frequent menstruation 06/26/2006 Overview (12/24/2016): Menorrhagia Resolved Problems Problem Noted Date Diagnosed Date Resolved Date Varicella 08/06/2004 08/06/2004 Overview (12/24/2016): LW Onset: ; Varicella Zoster Immunizations Name Administration Dates Next Due DT Ped 11/21/1996 DTP 07/02/1994,01/02/1994,10/02/1993 HepB Ped/Adol (0-18 yrs) 12/19/2003,12/28/1996,0 11/21/1996 HepB, Unspecified Formulation 12/31/2001 Hib (ActHIB) 10/02/1993 MMR 11/21/1996,07/02/1994 OPV, Trivalent (Orimune or tOPV) 07/02/1994,090 05/1993,10/02/1993 Td 12/19/2003 Social History Tobacco Use Types Packs/Day Years Used Date Smoking Tobacco: Every Day Cigarettes Tobacco Cessation:Ready to Q uit: Not Asked; Counseling Given: Not Answered Comments:Smoking History Packs/day: Sex and Gender Information Value Date Recorded Sex Assigned at Not on file Gender Identity Not on file Sexual Orientation Not on file Last Filed Vital Signs Vital Sign Reading Time Taken Comments Blood Pressure 138/91 03/25/2022 2:21 PM CAN [employer]ER Pulse 96 03/25/2022 2:21 PM CAN CLE[employer]ER Temperature 36.9 ??C (98.4 ??F) 03/25/2022 2:21 PM CS T Respiratory Rate 14 03/25/2022 2:21 PM CAN CLEANER Oxygen Saturation 97% 03/25/2022 2:21 PM CAN CLEANER Inhaled Oxygen Concentration - - Weight 60.8 kg (134 lb) 01/14/2013 2:09 PM CDT Height 166.4 cm (5' 5.5) 09/30/2008 9:29 AM CDT C: 166.4cm Body Mass Index - - Plan of Treatment Health Maintenance Due Date Last Done Comments Cervical Cancer Screening Due 1991 Hep C Screening (Preventive Services) 1991 IPV (Polio) (4 of 4 - 4-dose series) 1995 07/02/1994, 01/02/1994, 10/02/1993 Pneumococcal (1 - PCV) 1997 DTaP/Tdap/Td (5 - Tdap) 12/20/2003 12/19/19 04, 11/21/1996, 07/02/1994, Additional history exists HIV Screening (Preventive Services) 2007 Adult Preventive Visit 2009 COVID-19 Vaccine (2023- season) 2024 Influenza (#1) 2024 Zoster/Shingles (1 of 2) 2041 Hib Completed 10/02/1993 HepB Completed 12/19/2003, 12/04, 12/28/1996, Additional history exists HPV Vaccine Aged Out No longer eligi ble based on patient's age to complete this topic HepA Aged Out No longer eligi ble based on patient's age to complete this topic RSV Aged Out No longer eligi ble based on patient's age to complete this topic MCV4 Aged Out No longer eligi ble based on patient's age to complete this topic Care Teams Drug Room Clerk Relationship Specialty Start Date End Date Found, No Pcp, [id number] [place] [address] PCP - General 07/10/15
--- OUTSIDE RECORDS SUMMARY | 2024-02-15 14:29 | XMS_ITS | Encounter Summary ---
Author Organization [facility] Address [address] [place] [address] Care Team Providers Care Management Sme Name Role Phone Unavailable Primary Care Provider Unavailabl e Encounter Details Date Type Department Care Team (Latest Contact Info) Description 11/23/2023 3:25 PM CDT - 11/23/2023 11:59 PM CDT Hospital Encounter Department of Laboratory Medicine in [place], [place] [address] [place] [phone] Elisa Byrne, JOSÉ, C.N.P., M.S.N. [address] [place] [phone] Test Discharge Disposition: Home or Self Care [...] How often do you attend chur or gnosticism services? More than 4 times per year 02/23/2020 Do you belong to any clubs o r organizations such as lutheran groups, unions, fraZymergen or athletic groups, or school groups? Yes [...] Answer Date Recorded PHQ-2 Score 6 02/23/2020 [facility] - Occupational Stress [...] your living situation today? I have a [facility] place to live 10/31/2022 Education Answer [...] Comments HUMAN CHORIONIC GONADOTROPIN (HCG), PAULA, Routine 11/23/2023 3:32 PM CDT Test documented in this encounter Results * (ABNORMAL) hCG (Human Chorionic Gonadotropin), Quantitative, (11/23/2023 3:32 PM CDT) HCG, Quantitative, , P 9300(H) <5 IU/L 11/23/2023 3:55 PM CDT NPRG Blood (Blood, Venous) 11/23/2023 3:32 PM CDT 11/23/2023 3:35 PM CDT us Elisa Byrne APRN, C.N.P., M.S.N. LAB BLOOD AD D-ON Final Result [facility] [address] [place] [address], [place] NPRG [facility] [address] [place] [address] documented in this encounter Visit Diagnoses Diagnosis Test documented in this encounter Additional Health Concerns Assessment Noted Time PHQ-9 Depression Total Score: 26 02/22/ 020 10:07 AM CDT documented as of this encounter
--- OUTSIDE RECORDS SUMMARY | 2024-02-15 14:29 | XMS_ITS | Clinical Summary ---
Author Organization [facility] Address [place], [place] [address] Care Team Providers Care Chair Caner Name Role Phone Willem Alegre MD Primary Care Provider [phone] Allergies Active Allergy Reactions Criticality Noted Date Comments Adhesive Rash 08/19/2011 Latex Rash 08/19/2011 Medications Medication Sig Dispensed Refills Start Date End Date Status ALBUTEROL 90 MCG/ACTUATION AEROSOL INHALER 2 puffs, every 4-6 hours, as needed for wheezing 0 Active NAPROSYN 500 MG TAB take 1 tablet (500mg) by oral route 2 times per day with food 60 0 09/21/2006 Active HYDROcodone-acetam inophen, 5-500 mg, (VICODIN) Tab tablet Take 1 tablet by mouth every 6 hours if needed for Pain. Max acetaminophen dose: 4000mg in 24 hrs. 15 tablet 0 10/13/2011 Active Active Problems Problem Noted Date Diagnosed Date ABDOMINAL PAIN lower abd 09/20/2006 Other and unspecified ovarian cyst 04/12/2006 Estimated Date of Delivery Comme nts Yes 06/03/2017 Resolved Problems Problem Noted Date Diagnosed Date Resolved Date Acute pharyngitis 05/23/2006 05/24/2006 Other malaise and fatigue 05/23/2006 Fever and other physiologic disturbances of temperature regulation 05/23/2006 05/24/2006 Abdominal pain, other specified site 04/12/2006 05/24/2006 Family History Medical History Relation Name Comments Psychiatric illness Father Diabetes Maternal Aunt Heart Disease Maternal Grandfather Hypertension Maternal Grandfather Diabetes Maternal Grandmother Heart Disease Maternal Grandmother Hypertension Maternal Grandmother Other Other mpl family memb ers with diff types of hernias Relation Name Status Comments Father Maternal Aunt Maternal Grandfather Maternal Grandmother Other Social History Tobacco Use Types Packs/Day Years Used Date Smoking Tobacco: Former Alcohol Use Standard Drinks/Week Comments No 0 (1 standard drink = 0.6 oz pur e alcohol) Estimated Date of Delivery Comme nts Yes 06/03/2017 Sex and Gender Information Value Date Recorded Sex Assigned at Not on file Gender Identity Not on file Sexual Orientation Not on file Obstetrics History Para Term AB IAB SAB Ectopic Multiple Livin g Live Births 1 Date Outcome GA Total Labor Labor/2nd/3rd Weight Sex Type Anes PTL Charlene A1 A5 Name Clin Current Last Filed Vital Signs Vital Sign Reading Time Taken Comments Blood Pressure 124/82 10/08/2016 12:50 AM CDT Pulse 98 10/07/2016 9:47 PM CDT Temperature 36.6 ??C (97.8 ??F) 10/07/2016 9:47 PM CD T Respiratory Rate 18 10/08/2016 12:50 AM CDT Oxygen Saturation 98% 10/08/2016 12:50 AM CDT Inhaled Oxygen Concentration - - Weight 80.6 kg (177 lb 9.6 oz) 10/07/2016 9:47 P M CDT Height 170.2 cm (5' 7) 10/13/2011 10:09 PM CDT Body Mass Index - - Plan of Treatment Health Maintenance Due Date Last Done Comments Tdap 2002 Depression screening for age 12+ 2003 HIV for age 15-65 2006 BMI (ht and wt on same day) for age 18+ 2009 Hepatitis C screening for ag e 18-79 2009 Tetanus booster 2011 Pap test for age 21-65 12/07/2021 , 12/07/2018 COVID-19 vaccine series (2023-25 season) 2024 Influenza for age 9-49 01/03/2024 RSV vaccine for adults or (1 - 1-dose 75+ series) 2066 Pneumococcal series for age 6-64 Aged Out No longer eligible b ased on patient's age to complete this topic Procedures Procedure Name Priority Date/Time Associated Diagnosis Comments PROGRAM ATTENDANT THIN PREP PAP SCREEN IMAGED Routine 12/07/2018 1:35 PM CDT from Last 3 Months or Most Recently Relevant to Health Maintenance Results * (ABNORMAL) PROGRAM ATTENDANT THIN PREP PAP SCREEN IMAGED (12/07/2018 1:35 PM CDT) Case Report Gynecologic Cytology Report ? Case: [id number] ? Authorizing Provider: ??Willem Alegre MD ? Collected: ? 12/07/2018 1335 ? Ordering Location: ? [facility] ?Received: ?12/09/2018 1138 ? First Screen: ?Samantha Viera ? Pathologist: ? Jeff Ayala Jr., ? MD ? Specimen: ?PROGRAM ATTENDANT ThinPrep Vial Screening, Cervical/Vagina l ? 12/20/2018 1:47 PM CDT [facility] INTERPRETATION/ RESULT ATYPICAL SQUAMOUS CELLS OF UNDETERMINED SIGNIFICANCE (ASCUS)(A) (none) 12/20/2018 1:47 PM CDT [facility] IMEN ADEQUACY Satisfactory for evaluation Endocervical component present 12/20/2018 1:47 PM CDT [facility] HPV REQUEST HPV if ASCUS 12/20/2018 1:47 PM CDT [facility] Date of LMP 11/08/2018 12/20/2018 1:47 PM CDT [facility] Last Pap Date 12/20/2018 1:47 PM CDT [facility] Comment:2014 Automated Review Successful 12/20/2018 1:47 PM CDT [facility] Comment:Specimen processed s uccessfully by automated naval inspector device, ThinPrep Imaging System, [employer] ANCILLARY TESTING PROGRAM ATTENDANT HPV Ordered, Please see separate report 12/20/2018 1:47 PM CDT [facility] Note The pap test is a screening technique, not a diagnostic procedure. ??It is used primarily to screen for squamous cancers and precursor lesions. ??Published studies have shown that it is subject to both false negative and false positive results. ??The pap test should not be used as the sole means to diagnose or exclude pre-malignant and malignant lesions. Cytology is screened and interpreted at [facility] - [address], [place] [address] and [facility] - [address] [place] [address]; [place] [address] and [facility] - [address]; [place] [address] [address] [facility] [address]; [place] [address] 12/20/2018 1:47 PM CDT [facility] Other (Cervical/Vagina l) 12/07/2018 1:35 PM CDT 12/09/2018 11:38 AM CDT Willem Alegre MD PATHOLOGY/CYTOLOGY [facility] [address] [place] [address], from Last 3 Months or Most Recently Relevant to Health Maintenance Advance Directives * Full Code (Latest Code Status on File) Date Activated Date Inactivated Comments 09/20/2006 1:25 PM 09/21/2006 8:46 PM * Full Code Date Activated Date Inactivated Comments 05/23/2006 1:56 AM 05/24/2006 5:02 PM * Full Code Date Activated Date Inactivated Comments 04/12/2006 8:00 PM 04/13/2006 5:10 PM Care Teams Chair Caner Relationship Specialty Start Date End Date Willem Alegre MD PCP - General Family Practice 10/07/16
--- OUTSIDE RECORDS SUMMARY | 2024-02-15 14:29 | XMS_ITS | Clinical Summary ---
Author Organization [facility] Address [address] [place] [address] Care Team Providers Care Cement Or Concrete Finishing Supervisor Name Role Phone Jose Alegre MD Primary Care Provider [phone] Allergies Active Allergy Reactions Criticality Noted Date Comments Adhesive Tape 11/13/2014 rash Latex 11/13/2014 rash Medications Medication Sig Dispensed Refills Start Date End Date Status Multiple Vitamins-Calcium (ONE-A-DAY WOMENS FORMULA) TABS 11/13/2014 Active folic acid (FOLVITE) 400 MCG tablet Take 1 tablet (400 mcg) by mouth daily 30 tablet 11/13/2014 Active Esomeprazole Magnesium (NEXIUM PO)Indications:Heartb urn Take 40 mg by mouth daily Active Atorvastatin Calcium (LIPITOR PO) Take 20 mg by mouth daily Active sertraline (ZOLOFT) 100 MG tabletIndications:[place] or depressive disorder, recurrent episode, moderate (H) Take 2 tablets (200 mg) by mouth daily 60 tablet 03/05/2018 Active ARIPiprazole (ABILIFY) 5 MG tabletIndications:[place] or depressive disorder, recurrent episode, moderate (H) Take 1 tablet (5 mg) by mouth daily 30 tablet 03/05/2018 Active Active Problems Problem Noted Date Diagnosed Date Suicidal intent 03/03/2018 Family History Medical History Relation Comments Unknown/Adopted Father Diabetes Maternal Grandmother Hypertension Maternal Grandmother Asthma Mother Hypertension Mother Obesity Mother Thyroid Disease Mother Diabetes Sister Relation Status Comments Father Maternal Grandmother Mother Sister (Age 9) wouldn't take i nsulin Social History Tobacco Use Types Packs/Day Years Used Date Smoking Tobacco: Every Day Smokeless Tobacco: Never Alcohol Use Standard Drinks/Week Comments No 0 (1 standard drink = 0.6 oz pur e alcohol) Adolescent Education Answer Date Record ed Getting School Help Needed Not on file 01/31 Sex and Gender Information Value Date Recorded Sex Assigned at Not on file Gender Identity Not on file Sexual Orientation Not on file Last Filed Vital Signs Vital Sign Reading Time Taken Comments Blood Pressure 127/91 06/22/2023 1:49 PM BOREMATIC MACHINE OPERATOR Pulse 87 06/22/2023 1:49 PM BOREMATIC MACHINE OPERATOR Temperature 36.6 ??C (97.9 ??F) 06/22/2023 1:49 PM CS T Respiratory Rate 16 06/22/2023 2:04 PM BOREMATIC MACHINE OPERATOR Oxygen Saturation 98% 06/22/2023 2:22 PM BOREMATIC MACHINE OPERATOR Inhaled Oxygen Concentration - - Weight 79.6 kg (175 lb 7.8 oz) 06/22/2023 10:31 AM BOREMATIC MACHINE OPERATOR Height 167.6 cm (5' 6) 06/22/2023 10:29 AM BOREMATIC MACHINE OPERATOR Body Mass Index 28.32 06/22/2023 10:29 AM BOREMATIC MACHINE OPERATOR Plan of Treatment Health Maintenance Due Date Last Done Comments ANNUAL REVIEW OF HM ORDERS 1991 YEARLY PREVENTIVE VISIT 1991 Pneumococcal Vaccine: Pediatrics (0 to 5 Years) and At-Risk Patients (6 to 64 Years) (1 of 2 - PCV) 1997 DTAP/TDAP/TD IMMUNIZATION (5 - Tdap) 12/20/2003 12/19/2003, 07/02/1994, 01/02/1994, Additional history exists HIV SCREENING 2006 HEPATITIS C SCREENING 2009 LIPID 03/04/2019 03/04/2018 PAP 12/07/2021 12/07/2018, 12/07/2018 ADVANCE CARE PLANNING 03/04/2023 03/04/2018 PHQ-2 (once per calendar year) 2023 COVID-19 Vaccine ( - season) 2024 INFLUENZA VACCINE (#1) 2024 RSV VACCINE (1 - 1-dose 75+ series) 2066 HEPATITIS B IMMUNIZATION Completed 004, 12/31/2001, 12/28/1996, Additional history exists HPV IMMUNIZATION Aged Out No longer e ligible based on patient's age to complete this topic MENINGITIS IMMUNIZATION Aged Out No l onger eligible based on patient's age to complete this topic RSV MONOCLONAL ANTIBODY Aged Out No l onger eligible based on patient's age to complete this topic Procedures Procedure Name Priority Date/Time Associated Diagnosis Comments LIPID PROFILE Routine 03/04/2018 7:52 AM CDT from Last 3 Months or Most Recently Relevant to Health Maintenance Results * (ABNORMAL) Lipid panel (03/04/2018 7:52 AM CDT) Cholesterol 169 <200 mg/dL 03/04/2018 8:54 AM CDT [facility] Triglycerides 91 <150 mg/dL 03/04/2018 8:54 AM CDT [facility] HDL Cholesterol 50 >49 mg/dL 8 8:54 AM CDT [facility] LDL Cholesterol Calculated 101(H) <100 mg/dL 03/04/2018 8:54 AM CDT [facility] Comment: Above desirable: ??100-129 mg/dl Borderline High: ??130-159 mg/dL High: ? 160-189 mg/dL Very high: ? >189 mg/dl Non HDL Cholesterol 119 <130 mg/dL 03/04/2018 8:54 AM CDT [facility] Blood specimen (specimen) 03/04/2018 7:52 AM CDT 03/04/2018 7:54 AM CDT Liliana Benitez CNP LAB - BLOO D ORDERABLES Performing Organization Address City/State/[facility] Co de Phone Number [facility] [address] [place] [address] from Last 3 Months or Most Recently Relevant to Health Maintenance Advance Directives For more information, please contact: [phone] * Full Code (Latest Code Status on File) Date Activated Date Inactivated Comments 03/03/2018 3:07 AM 03/04/2018 9:08 PM Question Answer Comments Code status determined by: Unable to det ermine; FULL CODE until documents or legal decision maker available Care Teams Cement Or Concrete Finishing Supervisor Relationship Specialty Start Date End Date Jose Alegre MD PCP - General Family Practice 03/02/18
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
--- OUTSIDE RECORDS SUMMARY | 2024-02-15 14:29 | XMS_ITS | Referral Summary ---
Author Organization [facility] Address [address] [address] Care Team Providers Care Abalone Sheller Name Role Phone Jose Alegre MD Primary Care Provider [phone] Allergies Active Allergy Reactions Criticality Noted Date [...] Noted Date Diagnosed Date Suicidal intent 03/03/2018 Social History Tobacco Use Types Packs/Day Years [...] Comments Blood Pressure 127/91 06/22/2023 1:49 PM AUTO BODY STRAIGHTENER Pulse 87 06/22/2023 1:49 PM AUTO BODY STRAIGHTENER Temperature 36.6 ??C (97.9 ??F) 06/22/2023 1:49 PM CS T Respiratory Rate 16 06/22/2023 2:04 PM AUTO BODY STRAIGHTENER Oxygen Saturation 98% 06/22/2023 2:22 PM AUTO BODY STRAIGHTENER Inhaled Oxygen Concentration - - Weight 79.6 kg (175 lb 7.8 oz) 06/22/2023 10:31 AM AUTO BODY STRAIGHTENER Height 167.6 cm (5' 6) 06/22/2023 10:29 AM AUTO BODY STRAIGHTENER Body Mass Index 28.32 06/22/2023 10:29 AM AUTO BODY STRAIGHTENER Plan of Treatment Not on file Procedures Procedure Name Priority Date/Time Associated Diagnosis Comments LIPID PROFILE Routine 03/04/2018 7:52 AM CDT from Last 3 Months or Most Recently Relevant to Health Maintenance Results * (ABNORMAL) Lipid panel (03/04/2018 7:52 AM CDT) Cholesterol 169 <200 mg/dL 03/04/2018 8:54 AM CDT [facility] Triglycerides 91 <150 mg/dL 03/04/2018 8:54 AM CDT [facility] HDL Cholesterol 50 >49 mg/dL 8 8:54 AM CDT [facility] LDL Cholesterol Calculated 101(H) <100 mg/dL 03/04/2018 8:54 AM CDT [facility] Comment: Above desirable: ??100-129 mg/dl Borderline High: ??130-159 mg/dL High: ? 160-189 mg/dL Very high: ? >189 mg/dl Non HDL Cholesterol 119 <130 mg/dL 03/04/2018 8:54 AM CDT [facility] Blood specimen (specimen) 03/04/2018 7:52 AM CDT 03/04/2018 7:54 AM CDT Liliana Benitez FLOOR DIRECTOR LAB - BLOO D ORDERABLES [facility] [address] [place] [address] from Last 3 Months or Most Recently Relevant to Health Maintenance Advance Directives For more information, please contact: [phone] * Full Code (Latest Code Status on File) Date Activated Date Inactivated Comments 03/03/2018 3:07 AM 03/04/2018 9:08 PM Question Answer Comments Code status determined by: Unable to det ermine; FULL CODE until documents or legal decision maker available Care Teams Abalone Sheller Relationship Specialty Start Date End Date Jose Alegre MD PCP - General Family Practice 03/02/18
== END 2024-02-15 11:23 | disposition home or self-care (01) ==
LOC: NFLDREF 14:24
PROVIDERS: PCP Family Medicine; Referring Provider Family Medicine; Visit Provider Physician Assistant
DX: Z34.92 Encounter for supervision of normal pregnancy, unspecified, second trimester (principal)
CPT/HCPCS: 82570; 84156

== ENCOUNTER 2024-03-07 13:48 | Outpatient (CLI) | payer MEDICAID, SELFPAY ==
--- OUTSIDE RECORDS SUMMARY | 2024-03-07 13:53 | XMS_ITS | Clinical Summary ---
Author Organization [facility] Address [address] [place] [address] Care Team Providers Care Spice Miller Name Role Phone Unavailable Primary Care Provider Unavailabl e Source Comments Patient records contain information from all sites at [facility]. For routine questions regarding patient records, call [phone] during business hours, M-F 8:00 AM - 5:00 PM Central Time. Record requests for emergency care only can be directed to [phone] at any time.[facility] Allergies Active Allergy Reactions Criticality Noted Date [...] (12/15/2017): Added automatically from request for surgery [id number] Encounters Date Type Department Care Team Description 01/22/2024 Clinical Communication Department of Obstetrics and Gynecology in [address] [phone] Elisa Byrne, JOSÉ, C.N.P., M.S.N. 01/13/2024 4:36 PM CDT - 01/13/2024 11:59 PM CDT Hospital Encounter Department of Laboratory Medicine in [address] [place] [phone] Elisa Byrne APRN, C.N.P., M.S.N. Examination Normal First Trimester (HCC) Discharge Disposition: Home or Self Care 01/13/2024 4:00 PM CDT Silent Schedule Department of Obstetrics and Gynecology in [address] [phone] Elisa Byrne APRN, C.N.P., M.S.N. 01/13/2024 3:00 PM CDT Initial Department of Obstetrics and Gynecology in [address] [phone] Elisa Byrne APRN, C.N.P., M.S.N. GA: 12w3d Discharge Disposition: Home or Self Care 12/16/2023 1:35 PM CDT Silent Schedule Department of Obstetrics and Gynecology in [address] [phone] Elisa Byrne APRN, C.N.P., M.S.N. Discharge Disposition: Home or Self Care 12/16/2023 1:30 PM CDT Office Visit Department of Obstetrics and Gynecology in [address] [phone] Elisa Byrne APRN, C.NKate., M.S.N. Examination Normal First Trimester (HCC) Discharge Disposition: Home or Self Care from Last 3 Months Family History Medical [...] drink = 0.6 oz pur e alcohol) [facility] Utilities Answer Date Recorded In the past 12 months has th e [employer], gas, oil, or water company threatened to [...] any clubs o r organizations such as gnosticism groups, unions, fraternal or athletic groups, or [...] Answer Date Recorded PHQ-2 Score 0 01/13/2024 [facility] of Occupat ional Health - Occupational Stress [...] your living situation today? I have a [facility] place to live 12/09/2023 Education Answer [...] T Respiratory Rate 20 07/11/2023 1:00 PM ENTRY WRITER Oxygen Saturation 96% 07/11/2023 1:00 PM ENTRY WRITER Inhaled Oxygen Concentration - - Weight 72.8 [...] Asthma Management/Exacerbation Questionnaire (AMQ/AEQ) 07/23/2023 COVID-19 Vaccine ( - season) 2024 Influenza Vaccine (#1) 2024 RSV vaccine - (32-36 weeks) or 60+ years (1 - Risk 1-dose series) 05/29/2024 Cervical/Vaginal Cancer Screening 06/10/2027 06/10/2022, 06/10/2022, 12/07/2018 Depression Screening (Annual PHQ-2) Completed 01/13/2024 HIV Screening Completed 01/13/2024 Hepatitis C Screening Completed 01/13/2024 HPV Vaccines Aged Out No longer eligi ble based on patient's age to complete this topic IPV Vaccines Aged Out No longer eligi ble [...] PM CDT Examination Normal First Trimester (HCC) HPV WITH GENOTYPING, PCR, THINPREP Routine 06/10/2022 2:36 PM ENTRY WRITER from Last 3 Months or Most Recently Relevant to Health Maintenance Results * Testing Location (01/13/2024 4:53 PM CDT) Testing Location [facility] DEFAULT 01/13/2024 4:57 PM CDT NPRG Blood 01/13/2024 4:53 PM CDT 01/13/2024 4:57 PM CDT Dylon Conway APRN.N.P., M.S.N. LAB BLOOD BA NK TEST ORDERABLES Final Result [facility] [address] [place] [address], [facility] NPRG [facility] [address] [place] [address] * Type and Screen (with Reflex Antibody [...] 4:53 PM CDT 01/13/2024 4:57 PM CDT Sarah Conway APRNNGreta, M.S.N. LAB BLOOD BA NK TEST ORDERABLES Final Result [facility] [address] [place] [address], [facility] NPRG [facility] [address] [place] [address] * HBs Antibody , Serum (01/13/2024 4:52 [...] PM CDT 01/13/2024 10:17 PM CDT us Dylon Conway APRN.NDoP., M.S.N. LAB MICROBIO LOGY - BLOOD ORDERABLES Final Result [facility] [address] [place] [address], [place] MKTO [facility] [place] [address] [place] [address] * Hepatitis C Virus Antibody Screen (01/13/2024 4:52 PM CDT) HCV Ab Scrn , S Negative Negative 01/15/2024 11:[address] [facility] Comment: Consumption of high-dose biotin supplement within 12 hours of blood collection for this test can cause false-negative results. Blood (Blood, Venous) 01/13/2024 4:52 PM CDT 01/15/2024 7:17 AM CDT Elisa Byrne APRN, C.N.P., M.S.N. LAB MICROBIO LOGY - BLOOD ORDERABLES Final Result [facility] [address] [place] [address] [facility] [address] [place] [address] * Panorama Screen - Sent Out Lab (01/13/2024 4:52 PM CDT) [facility] Panorama Screen SEE COMMENT 01/27/2024 10:45 AM CDT KEVIN Comment: For final report, select Lab-Send Out Lab Results hyperlink below. Blood (Blood, Venous) 01/13/2024 4:52 PM CDT 01/15/2024 7:06 AM CDT Narrative [employer] - 01/27/2024 10:45 AM CDT Specimen Information: Specimen ID: [id number] Specimen Type: Blood Specimen Collection Start Date: 01/13/2024 ??4:52 PM Specimen Received Date: 01/15/2024 ??7:06 AM Specimen ID: [id number] Specimen Type: Blood Specimen Collection Start Date: 01/13/2024 ??4:53 PM Specimen Received Date: 01/15/2024 ??7:06 AM us Elisa Byrne APRN, C.N.P., M.S.N. LAB GENETIC TESTING Final Result [employer] [address] [place] [address], [facility] KEVIN [employer] [address] [place] [address] * HIV-1/-2 Ag and Ab Scrn, Plasma [...] PM CDT 01/13/2024 7:52 PM CDT us Elisa Byrne APRN, C.N.P., M.S.N. LAB MICROBIO LOGY - BLOOD ORDERABLES Final Result [facility] [address] [place] [address] [place] [address], [place] [facility] in [address] [address] * Rubella Antibodies, IgG (01/13/2024 4:52 PM CDT) Pathologist [facility] Rubella Ab, IgG, S Positive 01/13/2024 8:41 PM CDT [facility] Comment: Results suggest response to immunization or prior exposure to the virus. ----REFERENCE VALUE---- Vaccinated: Positive (>=1.0 AI) Unvaccinated: Negative (<=0.7 AI) Rubella IgG Antibody Index 1.4 01/13/2024 8:41 PM CDT [facility] Blood (Blood, Venous) 01/13/2024 4:52 PM CDT 01/13/2024 7:52 PM CDT us Elisa Byrne APRN C.N.P., M.S.N. LAB MICROBIO LOGY - BLOOD ORDERABLES Final Result [facility] [address] [place] [address], [facility] in [address] [address] * (ABNORMAL) CBC with Differential, Blood (01/13/2024 4:52 PM CDT) Pathologist [facility] Hemoglobin 12.1 11.6 - 15.0 g/dL 01/13/2024 [...] M.S.N. LAB BLOOD AD D-ON Final Result [facility] [address] [place] [address], [facility] NPRG [facility] [address] [place] [address] * Varicella-Zoster Antibody, IgG, Serum (01/13/2024 4:52 PM CDT) [facility] Varicella-Zoster Ab, IgG, S Positive 01/13/2024 8:41 PM CDT [facility] Comment: Results suggest response to immunization or prior exposure to the virus. ----REFERENCE VALUE---- Vaccinated: Positive (>=1.1 AI) Unvaccinated: Negative (<=0.8 AI) Varicella IgG Antibody Index 1.3 01/13/2024 8:41 PM CDT [facility] Blood (Blood, Venous) 01/13/2024 4:52 PM CDT 01/13/2024 7:52 PM CDT Elisa Byrne APRN C.N.P., M.S.N. LAB MICROBIO LOGY - BLOOD ORDERABLES Final Result [facility] [address] [place] [address], [facility] in [place] [address] [place] [address] * US OB First Trimester (01/13/2024 4:36 [...] in variable positions during exam today. us Sarah Conway APRNN.Terrence., M.S.N. IMG OB US [place] OCEDURES Final Result * Bacterial Culture, Aerobic + Susceptibility, Urine (01/13/2024 4:33 PM CDT) Urine Culture Urogenital microbiota, susceptibilities not performed per laboratory criteria. 01/14/2024 3:41 PM CDT MKTO Urine (Urine, Midstream) 01/13/2024 4:33 PM CDT 01/13/2024 10:19 PM CDT Comment:Specimen Source Site : Urine us Dylon Conway APRN.N.P., M.S.N. LAB MICROBIOLOGY - GENERAL ORDERABLES Final Result [facility] [address] [place] [address], [facility] MKTO [facility] in [address] [address] * Chlamydia / Gonorrhoeae Amplified RNA (01/13/2024 4:33 PM CDT) Source Swab, Vagina 01/14/2024 8:07 AM CDT MKTO Chlamydia trachomatis amplified RNA Negative Negative 01/14/2024 8:07 AM CDT MKTO Source Swab, Vagina 01/14/2024 8:07 AM CDT MKTO Neisseria gonorrhoeae amplified RNA Negative Negative 01/14/2024 8:07 AM CDT MKTO Swab (Vagina) 01/13/2024 4:3 3 PM CDT 01/13/2024 10:19 PM CDT us Sarah Conway APRNNKate., M.S.N. LAB MICROBIOLOGY - GENERAL ORDERABLES Final Result [facility] [address] [place] [address], [facility] MKTO [address] [place] [address] * (ABNORMAL) Urinalysis, with Microscopic: Urine, Midstream [...] 8.0 01/13/2024 4:38 PM CDT NPRG Specific [place] 1.025 1.001 - 1.035 01/13/2024 4:38 PM [...] 4:33 PM CDT 01/13/2024 4:35 PM CDT Elias Byrne APRN C.N.P., M.S.N. LAB URINE OR DERABLES Final Result [facility] [address] [place] [address], [facility] NPRG [facility] [address] [place] [address] * HPV with Genotyping, PCR, ThinPrep (06/10/2022 2:36 PM ENTRY WRITER) HPV with Genotyping, ThinPrep, PCR Negative Negative 06/11/2022 2:27 PM ENTRY WRITER MKTO Comment: Negative for high risk HPV [...] correlated with patient's history, clinical presentation, and [employer] cytology report. 06/10/2022 2:36 PM ENTRY WRITER 06/11/2022 7:20 AM ENTRY WRITER us Elisa Byrne APRN, C.N.P., M.S.N. LAB MICROBIOLOGY - GENERAL ORDERABLES Final Result [facility] [address] [place] [address], [facility] MKTO [facility] [place] [address] [place] [address] from Last 3 Months or Most Recently Relevant to Health Maintenance Insurance [place] [employer]
--- OUTSIDE RECORDS SUMMARY | 2024-03-07 13:53 | XMS_ITS | Referral Summary ---
Author Organization [facility] Address [address] [place] [address] Care Team Providers Care Mixer Diamond Powder Name Role Phone Unavailable Primary Care Provider Unavailabl e Source Comments Patient records contain information from all sites at [facility]. For routine questions regarding patient records, call [phone] during business hours, M-F 8:00 AM - 5:00 PM Central Time. Record requests for emergency care only can be directed to [phone] at any time.[facility] Encounters Date Type Department Care Team Description 01/22/2024 Clinical Communication Department of Obstetrics and Gynecology in [address] [phone] Elisa Byrne APRN, C.N.P., M.S.N. 01/13/2024 4:36 PM CDT - 01/13/2024 11:59 PM CDT Hospital Encounter Department of Laboratory Medicine in [address] [phone] Elisa Byrne APRN, C.N.P., M.S.N. Examination Normal First Trimester (HCC) Discharge Disposition: Home or Self Care 01/13/2024 4:00 PM CDT Silent Schedule Department of Obstetrics and Gynecology in [address] [phone] Elisa Byrne APRN C.N.P., M.S.N. 01/13/2024 3:00 PM CDT Initial Department of Obstetrics and Gynecology in [address] [phone] Elisa Byrne APRN, C.N.P., M.S.N. GA: 12w3d Discharge Disposition: Home or Self Care 12/16/2023 1:35 PM CDT Silent Schedule Department of Obstetrics and Gynecology in [address] [phone] Elisa Byrne APRN, C.N.P., M.S.N. Discharge Disposition: Home or Self Care 12/16/2023 1:30 PM CDT Office Visit Department of Obstetrics and Gynecology in [address] [phone] Elisa Byrne APRN, C.N.P., M.S.N. Examination Normal [...] (12/15/2017): Added automatically from request for surgery [id number] Social History Tobacco Use Types Packs/Day Years Used Date Smoking Tobacco: Former Cigarettes Passive Smoke Exposure: Past Smokeless Tobacco: Never Tobacco Cessation:Counseling Given: Not Answered Alcohol Use Standard Drinks/Week Comments No 0 (1 standard drink = 0.6 oz pur e alcohol) [facility] Utilities Answer Date Recorded In the past 12 months has th e [employer], gas, oil, or water [employer] threatened to shut off services in your [...] How often do you attend chur or presybeterian services? More than 4 times per year 02/23/2020 Do you belong to any clubs o r organizations such as uatsdin groups, unions, fraternal or athletic groups, or [...] Answer Date Recorded PHQ-2 Score 0 01/13/2024 [facility] of Occupat ional Health - Occupational Stress [...] your living situation today? I have a [facility] place to live 12/09/2023 Education Answer Date [...] T Respiratory Rate 20 07/11/2023 1:00 PM STOCK HOLDER Oxygen Saturation 96% 07/11/2023 1:00 PM STOCK HOLDER Inhaled Oxygen Concentration - - Weight 72.8 [...] GENOTYPING, PCR, THINPREP Routine 06/10/2022 2:36 PM STOCK HOLDER from Last 3 Months or Most Recently Relevant to Health Maintenance Results * Testing Location (01/13/2024 4:53 PM CDT) Testing Location [facility] DEFAULT 01/13/2024 4:57 PM CDT NPRG Blood 01/13/2024 4:53 PM CDT 01/13/2024 4:57 PM CDT us Elisa Byrne APRN, C.N.P., M.S.N. LAB BLOOD BA NK TEST ORDERABLES Final Result [facility] [address] [place] [address], [place] NPRG [facility] [address] [place] [address] * Type and Screen (with Reflex Antibody [...] TEST ORDERABLES Final Result Performing Organization Address City/[facility]/ZIP Co de Phone Number [facility] [address] [place] [address], [facility] NPRG [place] [address] [place] [address] * HBs Antibody , Serum (01/13/2024 4:52 [...] 01/13/2024 10:17 PM CDT us Dylon Conway APRN.N.Terrence., M.S.N. LAB MICROBIO LOGY - BLOOD ORDERABLES Final Result [facility] [address] [place] [address], [facility] MKTO [facility] in [place] [address] [place] [address] * Hepatitis C Virus Antibody Screen (01/13/2024 4:52 PM CDT) Pathologist [facility] [place] HCV Ab Scrn , S Negative Negative 01/15/2024 11:37 AM CDT [facility] Comment: Consumption of high-dose biotin supplement within 12 hours of blood collection for this test can cause false-negative results. Blood (Blood, Venous) 01/13/2024 4:52 PM CDT 01/15/2024 7:17 AM CDT us Elisa Byrne APRN, C.N.P., M.S.N. LAB MICROBIO LOGY - BLOOD ORDERABLES Final Result [facility] [address] [place] [address] [facility] [address] [place] [address] * Panorama Screen - Sent Out Lab (01/13/2024 4:52 PM CDT) [facility] Panorama Screen SEE COMMENT 01/27/2024 10:45 AM CDT KEVIN Comment: For final report, select Lab-Send Out Lab Results hyperlink below. Blood (Blood, Venous) 01/13/2024 4:52 PM CDT 01/15/2024 7:06 AM CDT Narrative [employer] - 01/27/2024 10:45 AM CDT Specimen Information: Specimen ID: [id number] Specimen Type: Blood Specimen Collection Start Date: 01/13/2024 ??4:52 PM Specimen Received Date: 01/15/2024 ??7:06 AM Specimen ID: [id number] Specimen Type: Blood Specimen Collection Start Date: 01/13/2024 ??4:53 PM Specimen Received Date: 01/15/2024 ??7:06 AM Elisa Byrne APRN, C.N.P., M.S.N. LAB GENETIC TESTING Final Result [employer] [employer] [address] [place] [address], [facility] KEVIN [employer] [address] [place] [address] * HIV-1/-2 Ag and Ab Scrn, Plasma [...] 4:52 PM CDT 01/13/2024 7:52 PM CDT Dyoln Conway APRN.N.Terrence., M.S.N. LAB MICROBIO LOGY - BLOOD ORDERABLES Final Result Performing Organization Address [facility]/ZIP Co de Phone Number [facility] [address] [place] [address], [facility] in [address] [address] * Rubella Antibodies, IgG (01/13/2024 4:52 PM [...] BLOOD ORDERABLES Final Result Performing Organization Address City/[facility] Co de Phone Number [facility] [address] [place] [address], [facility] in [address] [address] * (ABNORMAL) CBC with Differential, Blood (01/13/2024 [...] Elisa Byrne APRN C.N.P., M.S.N. LAB BLOOD AD D-ON Final Result [facility] [address] [place] [address], [facility] NPRG [facility] [address] [place] [address] * Varicella-Zoster Antibody, IgG, Serum (01/13/2024 4:52 PM CDT) [facility] Varicella-Zoster Ab, IgG, S Positive 01/13/2024 8:41 [...] MICROBIO LOGY - BLOOD ORDERABLES Final Result [facility] [address] [place] [address], [facility] [place] [address] [place] [address] * US OB First Trimester (01/13/2024 4:36 [...] in variable positions during exam today. us Dylon Conway APRN.N.P., M.S.N. IMG OB US [place] OCEDURES Final Result * Bacterial Culture, Aerobic + Susceptibility, Urine (01/13/2024 4:33 PM CDT) Urine Culture Urogenital microbiota, susceptibilities not performed per laboratory criteria. 01/14/2024 3:41 PM CDT MKTO Urine (Urine, Midstream) 01/13/2024 4:33 PM CDT 01/13/2024 10:19 PM CDT Comment:Specimen Source Site : Urine Elisa Byrne APRN, C.N.P., M.S.N. LAB MICROBIOLOGY - GENERAL ORDERABLES Final Result Performing Organization Address [facility] Co de Phone Number [facility] [address] [place] [address], [address] [address] * Chlamydia / Gonorrhoeae Amplified RNA (01/13/2024 [...] GENERAL ORDERABLES Final Result Performing Organization Address [facility] Co de Phone Number [facility] [address] [place] [address], [facility] [address] [place] [address] * (ABNORMAL) Urinalysis, with Microscopic: Urine, Midstream [...] 8.0 01/13/2024 4:38 PM CDT NPRG Specific [place] 1.025 1.001 - 1.035 01/13/2024 4:38 PM [...] 4:33 PM CDT 01/13/2024 4:35 PM CDT Elisa Byrne APRN C.N.P., M.S.N. LAB URINE OR DERABLES Final Result [facility] [address] [place] [address], [facility] NPRG [facility] [address] [place] [address] * HPV with Genotyping, PCR, ThinPrep (06/10/2022 2:36 PM STOCK HOLDER) HPV with Genotyping, ThinPrep, PCR Negative Negative 06/11/2022 2:27 PM STOCK HOLDER MKTO Comment: Negative for high risk HPV [...] correlated with patient's history, clinical presentation, and NEONATAL DOCTOR cytology report. 06/10/2022 2:36 PM STOCK HOLDER 06/11/2022 7:20 AM STOCK HOLDER us Elisa Byrne APRN C.N.P., M.S.N. LAB MICROBIOLOGY - GENERAL ORDERABLES Final Result [facility] [address] [place] [address], [facility] in [address] [address] from Last 3 Months or Most Recently Relevant to Health Maintenance Insurance [place] [address]
--- OUTSIDE RECORDS SUMMARY | 2024-03-07 13:53 | XMS_ITS | Encounter Summary ---
Author Organization [facility] Address [address] [place] [address] Care Team Providers Care Individual Pension Adviser Name Role Phone Unavailable Primary Care Provider Unavailabl e Encounter Details Date Type Department Care Team (Late st Contact Info) Description 01/22/2024 Clinical Communication Department of Obstetrics and Gynecology in [place], [place] [address] [place] [phone] Elisa Byrne, JOSÉ, C.N.P., M.S.N. [address] [place] [phone] Social History Tobacco Use Types Packs/Day Years Used Date Smoking Tobacco: Former Cigarettes Passive Smoke Exposure: Past Smokeless Tobacco: Never Alcohol Use Standard Drinks/Week Comments No 0 (1 standard drink = 0.6 oz pur e alcohol) [facility] Utilities Answer Date Recorded In the past 12 months has [employer], [employer], oil, or water [employer] threatened to shut off services in your [...] How often do you attend chur or taoism services? More than 4 times per year 02/23/2020 Do you belong to any clubs o r organizations such as yazidism groups, unions, fraternal or athletic groups, or [...] Answer Date Recorded PHQ-2 Score 0 01/13/2024 [facility] of Occupat ional Health - Occupational [...] your living situation today? I have a [facility] place to live 12/09/2023 Education Answer [...]
--- OUTSIDE RECORDS SUMMARY | 2024-03-07 13:53 | XMS_ITS | Encounter Summary ---
Author Organization [facility] Address [address] [place] [address] Care Team Providers Care Manager Budget Name Role Phone Unavailable Primary Care Provider Unavailabl e Encounter Details Date Type Department Care Team (Latest Contact Info) Description 01/13/2024 4:36 PM CDT - 01/13/2024 11:59 PM CDT Hospital Encounter Department of Laboratory Medicine in [place], [place] [address] [place] [phone] Elisa Byrne, JOSÉ, C.N.P., M.S.N. [address] [place] [phone] Examination Normal First Trimester (HCC) Discharge Disposition: Home or Self Care Social History Tobacco Use Types Packs/Day Years Used Date Smoking Tobacco: Former Cigarettes Passive Smoke Exposure: Past Smokeless Tobacco: Never Alcohol Use Standard Drinks/Week Comments No 0 (1 standard drink = 0.6 oz pur e alcohol) [facility] Utilities Answer Date Recorded In the past [...] How often do you attend chur or episcopalian services? More than 4 times per year 02/23/2020 Do you belong to any clubs o r organizations such as jewish groups, unions, fraternal or athletic groups, or [...] Answer Date Recorded PHQ-2 Score 0 01/13/2024 [facility] - [...] your living situation today? I have a [facility] place to live 12/09/2023 Education Answer [...] Location (01/13/2024 4:53 PM CDT) Testing Location [facility] DEFAULT 01/13/2024 4:57 PM CDT NPRG Blood 01/13/2024 4:53 PM CDT 01/13/2024 4:57 PM CDT us Elisa Byrne APRN C.N.P., M.S.N. LAB BLOOD BA NK TEST ORDERABLES Final Result [facility] [address] [place] [address], [facility] NPRG [facility] [address] [place] [address] * Type and Screen (with Reflex Antibody [...] BLOOD BA NK TEST ORDERABLES Final Result [facility] [address] [place] [address], [place] NPRG [facility] [address] [place] [address] * Panorama Screen - Sent Out Lab (01/13/2024 4:52 PM CDT) [facility] Panorama Screen SEE COMMENT 01/27/2024 10:45 AM CDT [facility] Comment: For final report, select Lab-Send Out Lab Results hyperlink below. Blood (Blood, Venous) 01/13/2024 4:52 PM CDT 01/15/2024 7:06 AM CDT Narrative [facility] - 01/27/2024 10:45 AM CDT Specimen Information: Specimen ID: [id number] Specimen Type: Blood Specimen Collection Start Date: 01/13/2024 ??4:52 PM Specimen Received Date: 01/15/2024 ??7:06 AM Specimen ID: [id number] Specimen Type: Blood Specimen Collection Start Date: 01/13/2024 ??4:53 PM Specimen Received Date: 01/15/2024 ??7:06 AM us Elisa Byrne APRN, C.N.P., M.S.N. LAB GENETIC TESTING Final Result [facility] [address] [place] [address], [place] [facility] [address] [place] [address] * Varicella-Zoster Antibody, IgG, Serum (01/13/2024 4:52 [...] MICROBIO LOGY - BLOOD ORDERABLES Final Result [facility] [address] [place] [address], [facility] [address] [address] * HIV-1/-2 Ag and Ab Scrn, Plasma (01/13/2024 4:52 PM CDT) Pathologist [facility] HIV Ag/Ab Scrn, P Negative Negative 01/13/2024 [...] P Negative Negative 01/13/2024 9:01 PM CDT [facility] Comment: Negative result does not rule out HIV infection. If exposure to HIV infection occurred <14 days ago, contact the laboratory to request addition of HIV-1/HIV-2 RNA detection , Plasma (HPP12). Blood (Blood, Venous) 01/13/2024 4:52 PM CDT 01/13/2024 7:52 PM CDT Elisa Byrne APRN, C.N.P., M.S.N. LAB MICROBIO LOGY - BLOOD ORDERABLES Final Result [address] [address], [place] [address] * Hepatitis C Virus Antibody Screen (01/13/2024 4:52 PM CDT) HCV Ab Scrn , S Negative Negative 01/15/2024 11:37 AM CDT [facility] Comment: Consumption of high-dose biotin supplement within 12 hours of blood collection for this test can cause false-negative results. Blood (Blood, Venous) 01/13/2024 4:52 PM CDT 01/15/2024 7:17 AM CDT Sarah Conway APRNNKate., M.S.N. LAB MICROBIO LOGY - BLOOD ORDERABLES Final Result [facility] [address] [place] [address] [facility] [address] [place] [place] [address] * HBs Antibody , Serum (01/13/2024 4:52 [...] MICROBIO LOGY - BLOOD [place] [address], [facility] [place] [address] * (ABNORMAL) CBC with Differential, Blood (01/13/2024 [...] AD D-ON Final Result Performing Organization Address City/State/[facility] Co de Phone Number [facility] [address] [place] [address], [facility] NPRG [facility] [address] [place] [address] * Rubella Antibodies, IgG (01/13/2024 4:52 PM CDT) [facility] Signature Rubella Ab, IgG, S Positive [...] MICROBIO LOGY - BLOOD ORDERABLES Final Result [facility] [address] [place] [address], [facility] [place] [address] [place] [address] documented in this encounter Visit Diagnoses Diagnosis Examination Normal First Trimester (HCC) documented in this encounter Additional Health Concerns Assessment Noted Time PHQ-9 Depression Total Score: 10 024 4:33 PM CDT documented as of this encounter
--- OUTSIDE RECORDS SUMMARY | 2024-03-07 13:53 | XMS_ITS ---
Author Organization [facility] Address [address] [place] [address] Care Team Providers Care Dental Laboratory Technician Apprentice Name Role Phone Unavailable Unavailable Unavailable Surgery Details Not on file Complications Check Surgery Details section. Procedure Estimated Blood Loss Check Surgery Details section. Procedure Findings Check Surgery Details section. Procedure Specimens Taken Check Surgery Details section.
--- OUTSIDE RECORDS SUMMARY | 2024-03-07 13:53 | XMS_ITS | Encounter Summary ---
Author Organization [facility] Address [address] [place] [address] Care Team Providers Care Alum Plant Operator Name Role Phone Unavailable Primary Care Provider Unavailabl e Encounter Details Date Type Department Care Team (Late st Contact Info) Description 01/13/2024 4:00 PM CDT Silent Schedule Department of Obstetrics and Gynecology in [place], [place] [address] [place] [phone] Elisa Byrne, JOSÉ, C.N.P., M.S.N. [address] [place] [phone] Social History Tobacco Use Types Packs/Day Years Used Date Smoking Tobacco: Former Cigarettes Passive Smoke Exposure: Past Smokeless Tobacco: Never Alcohol Use Standard Drinks/Week Comments No 0 (1 standard drink = 0.6 oz pur e alcohol) [facility] Utilities Answer Date Recorded In the past 12 months has [employer], gas, oil, or water [employer] threatened to shut off services in your [...] How often do you attend chur or denominational services? More than 4 times per year [...] Answer Date Recorded PHQ-2 Score 0 01/13/2024 [facility] [place] [facility] - Occupational Stress [...] your living situation today? I have a [facility] place to live 12/09/2023 Education Answer [...] Byrne APRN C.N.P., M.S.N. IMG OB [place] OCEDURES Final Result documented in this encounter Visit Diagnoses Not on filedocumented in this encounter Additional Health Concerns Assessment Noted Time PHQ-9 Depression Total Score: 10 024 4:33 PM CDT documented as of this encounter
--- OUTSIDE RECORDS SUMMARY | 2024-03-07 13:54 | XMS_ITS | Clinical Summary ---
[facility] Organization [facility] Address [address] [place] [address] Care Team Providers Care Sole Tier Name Role Phone Found, No Pcp MD Primary Care Provider Unavailab le Source Comments You are receiving this document as you are listed as the primary care provider,follow-up provider, or the patient has been referred to you for consultation.This is in compliance with the Medicare and[facility] EHR Incentive Program,which states Providers who transition their patient to another setting of careor provider of care or refers their patient to another provider of care shouldprovide summary care record for each transition of care or referral. Amitive Allergies Active Allergy Reactions Criticality Noted Date [...] 07/14/2006 Overview (12/24/2016): LW Modifier: dx at [facility]-genetics c/s pending LW Onset: ; Connective Tissue [...] Comments Blood Pressure 138/91 03/25/2022 2:21 PM BUNCH TRIMMER MOLD Pulse 96 03/25/2022 2:21 PM BUNCH TRIMMER MOLD Temperature 36.9 ??C (98.4 ??F) 03/25/2022 2:21 PM CS T Respiratory Rate 14 03/25/2022 2:21 PM BUNCH TRIMMER MOLD Oxygen Saturation 97% 03/25/2022 2:21 PM BUNCH TRIMMER MOLD Inhaled Oxygen Concentration - - Weight 60.8 [...] age to complete this topic Care Teams Sole Tier Relationship Specialty Start Date End Date Found, No Pcp, [address] [place] [address] PCP - General 07/10/15
--- OUTSIDE RECORDS SUMMARY | 2024-03-07 13:54 | XMS_ITS | Referral Summary ---
Author Organization [facility] Address [address] [facility] [address] Care Team Providers Care Assistant Housekeeping Manager Name Role Phone Jose Alegre MD Primary Care Provider [phone] Allergies Active Allergy Reactions Criticality Noted Date Comments Adhesive Tape 11/13/2014 rash Latex 11/13/2014 rash Medications Multiple Vitamins-Calciu m (ONE-A-DAY WOMENS FORMULA) TABS 11/13/2014 Active folic acid (FOLVITE) 400 MCG tablet Take 1 tablet (400 mcg) by mouth daily 30 tablet 11/13/2014 Active Esomeprazole Magnesium (NEXIUM PO)Indications: Heartburn Take 40 mg by mouth daily Active Atorvastatin Calcium (LIPITOR PO) Take 20 mg by mouth daily Active sertraline (ZOLOFT) 100 MG tabletIndicatio ns:Major depressive disorder, recurrent episode, moderate (H) Take 2 tablets (200 mg) by mouth daily 60 tablet 03/05/2018 Active ARIPiprazole (ABILIFY) 5 MG tabletIndicatio ns:Major depressive disorder, recurrent episode, moderate (H) Take [...] School Help Needed Not on file 01/31 Comments Unknown Sex and Gender Information Value Date Recorded Sex Assigned at Not on file Legal Sex Female 5:09 AM BALL TRUING MACHINE OPERATOR Gender Identity Not on file Sexual Orientation Not on file Last Filed Vital Signs Vital Sign Reading Time Taken Comments Blood Pressure 127/91 06/22/2023 1:49 PM BALL TRUING MACHINE OPERATOR Pulse 87 06/22/2023 1:49 PM BALL TRUING MACHINE OPERATOR Temperature 36.6 ??C (97.9 ??F) 06/22/2023 1:49 PM CS T Respiratory Rate 16 06/22/2023 2:04 PM BALL TRUING MACHINE OPERATOR Oxygen Saturation 98% 06/22/2023 2:22 PM BALL TRUING MACHINE OPERATOR Inhaled Oxygen Concentration - - Weight 79.6 kg (175 lb 7.8 oz) 06/22/2023 10:31 AM BALL TRUING MACHINE OPERATOR Height 167.6 cm (5' 6) 06/22/2023 10:29 AM BALL TRUING MACHINE OPERATOR Body Mass Index 28.32 06/22/2023 10:29 AM BALL TRUING MACHINE OPERATOR Plan of Treatment Not on file Procedures Procedure Name Priority Date/Time Associated Diagnosis Comments LIPID PROFILE Routine 03/04/2018 7:52 AM CDT from Last 3 Months or Most Recently Relevant to Health Maintenance Results * (ABNORMAL) Lipid panel (03/04/2018 7:52 AM CDT) Cholesterol 169 <200 mg/dL 03/04/2018 8:54 AM CDT [facility] Triglycerides 91 <150 mg/dL 03/04/2018 8:54 AM CDT [facility] HDL Cholesterol 50 >49 mg/dL 8 8:54 AM CDT [facility] LDL Cholesterol Calculated 101(H) <100 mg/dL 03/04/2018 8:54 AM CDT [facility] Comment: Above desirable: ??100-129 mg/dl Borderline High: ??130-159 mg/dL High: ? 160-189 mg/dL Very high: ? >189 mg/dl Non HDL Cholesterol 119 <130 mg/dL 03/04/2018 8:54 AM CDT [facility] Blood specimen (specimen) 03/04/2018 7:52 AM CDT 03/04/2018 7:54 AM CDT us Liliana Lynnette John Eli PARTS ADMINISTRATOR LAB - BLOOD ORDERA BLES Final Result [facility] [address] [place] [address] from Last 3 Months or Most Recently Relevant to Health Maintenance Insurance BCBS OUT OF STATE BCBS OUT OF STATE Advance Directives For more information, please contact: [phone] * Full Code (Latest Code Status on File) Date Activated Date Inactivated Comments 03/03/2018 3:07 AM 03/04/2018 9:08 PM Question Answer Comments Code status determined by: Unable to det ermine; FULL CODE until documents or legal decision maker available Care Teams Assistant Housekeeping Manager Relationship Specialty Start Date End Date Jose Alegre MD PCP - General Family Practice 03/02/18
--- OUTSIDE RECORDS SUMMARY | 2024-03-07 13:54 | XMS_ITS | Encounter Summary ---
Author Organization [facility] Address [address] [place] [address] Care Team Providers Care Crusher Loader Equipment Operator Name Role Phone Jose Alegre MD Primary Care Provider [phone] Reason for Visit * Reason Onset Date Comments MH/CD Inpatient 03/02/2018 Encounter Details Date Type Department Care Team ([facility] Contact Info) Description 03/02/[address] [facility] Behavioral Health Intake [address] [place] [phone] Generic, Behavioral Intake, MH/CD Inpatient Social History Tobacco Use Types Packs/Day Years Used Date Smoking Tobacco: Every Day Smokeless Tobacco: Never Alcohol Use Standard Drinks/Week Comments No 0 (1 standard drink = 0.6 oz pur e alcohol) Comments No Sex and Gender Information Value Date Recorded Sex Assigned at Not on file Legal Sex Female 5:09 AM MANAGER DISH Gender Identity Not on file Sexual Orientation Not on file documented as of this encounter Miscellaneous Notes * Telephone Encounter - Marcela Huffman - 03/02/2018 9:08 PM CDT S: pt is a 27 yr old fem in [facility] ED for SI w/ plan to [...] on filedocumented in this encounter Care Teams Crusher Loader Equipment Operator Relationship Specialty Start Date End Date Jose Alegre MD PCP - General Family Practice 03/02/18 documented as of this encounter
--- OUTSIDE RECORDS SUMMARY | 2024-03-07 13:54 | XMS_ITS | Clinical Summary ---
Author Organization [facility] Address [place], [place] [address] Care Team Providers Care Sparker And Patcher Name Role Phone Willem Alegre MD Primary Care Provider [phone] Allergies Active Allergy Reactions Criticality Noted Date [...] Procedure Name Priority Date/Time Associated Diagnosis Comments SECTIONIZER THIN PREP PAP SCREEN IMAGED Routine 12/07/2018 1:35 PM CDT from Last 3 Months or Most Recently Relevant to Health Maintenance Results * (ABNORMAL) SECTIONIZER THIN PREP PAP SCREEN IMAGED (12/07/2018 1:35 PM CDT) Case Report Gynecologic Cytology Report ? Case: [id number] ? Authorizing Provider: ??Willem Alegre MD ? Collected: ? 12/07/2018 1335 ? Ordering Location: ? [facility] ?Received: ?12/09/2018 1138 ? First Screen: ?Samantha Viera ? Pathologist: ? Jeff Ayala Jr., ? MD ? Specimen: ?SECTIONIZER ThinPrep Vial Screening, Cervical/Vagina l ? 12/20/2018 1:47 PM CDT [facility] INTERPRETATION/ RESULT ATYPICAL SQUAMOUS CELLS OF UNDETERMINED SIGNIFICANCE (ASCUS)(A) (none) 12/20/2018 1:47 PM CDT [facility] IMEN ADEQUACY Satisfactory for evaluation Endocervical component present 12/20/2018 1:47 PM CDT [facility] HPV REQUEST HPV if ASCUS 12/20/2018 1:47 PM CDT [facility] Date of LMP 11/08/2018 12/20/2018 1:47 PM CDT [facility] Last Pap Date 12/20/2018 1:47 PM CDT [facility] Comment:2014 Automated Review Successful 12/20/2018 1:47 PM CDT [facility] Comment:Specimen processed s uccessfully by automated aerosol supervisor device, ThinPrep Imaging System, [id number] ANCILLARY TESTING SECTIONIZER HPV Ordered, Please see separate report 12/20/2018 [...] lesions. Cytology is screened and interpreted at [facility] - [address], [place] [address] and [facility] - [address] [place] [address]; [place] [address] and [facility] - [address]; [place] [address] and [facility] [address]; [place] [address] 12/20/2018 1:47 PM CDT [facility] Other (Cervical/Vagina l) 12/07/2018 1:35 PM CDT 12/09/2018 11:38 AM CDT Willem Alegre MD PATHOLOGY/CYTOLOGY [facility] [address] [place] [address], from Last 3 Months or Most Recently Relevant to Health Maintenance Advance Directives * Full Code (Latest Code Status on File) Date Activated Date Inactivated Comments 09/20/2006 1:25 PM 09/21/2006 8:46 PM * Full Code Date Activated Date Inactivated Comments 05/23/2006 1:56 AM 05/24/2006 5:02 PM * Full Code Date Activated Date Inactivated Comments 04/12/2006 8:00 PM 04/13/2006 5:10 PM Care Teams Sparker And Patcher Relationship Specialty Start Date End Date Willem Alegre MD PCP - General Family Practice 10/07/16
--- OUTSIDE RECORDS SUMMARY | 2024-03-07 13:54 | XMS_ITS | Encounter Summary ---
Author Organization [facility] Address [address] [place] [address] Care Team Providers Care Metal Weigher Name Role Phone Unavailable Primary Care Provider Unavailabl e Reason for Visit * Reason Comments Initial Visit 12 07/08 * Outpatient (Routine) - Closed Specialty Diagnoses / Procedures Referred By Contac t Referred To Contact Obstetrics and Gynecology Diagnoses Examination Normal First Trimester (HCC) Elisa Byrne APRN, C.N.P., [place] [address] Phone: tel: fax: [facility] Region Referral ID Status Reason Start Date Expiration Date Visits Re quested Visits Authorized [id number] Closed 12/16/2023 06/16/2025 1 1 Encounter Details Date Type Department Care Team (Latest Contact Info) Description 01/13/2024 3:00 PM CDT Initial Department of Obstetrics and Gynecology in [place], [place] [address] [place] [address] Elisa Byrne APRN, C.N.P., M.S.N. [address] [place] [address] [place]: [id number] Discharge Disposition: Home or Self Care Social History Tobacco Use Types Packs/Day Years Used Date Smoking Tobacco: Former Cigarettes Passive Smoke Exposure: Past Smokeless Tobacco: Never Tobacco Cessation:Counseling Given: Not Answered Alcohol Use Standard Drinks/Week Comments No 0 (1 standard drink = 0.6 oz pur e alcohol) [facility] Utilities Answer Date Recorded In the [...] often do you attend chur ch or hinduism services? More than 4 times per year [...] Answer Date Recorded PHQ-2 Score 0 01/13/2024 [facility] [place] of Occupat ional Health - Occupational Stress [...] your living situation today? [facility] 12/09/2023 Education Answer [...] discharge. GCC done. - Bimanual exam: deferred Eap Consultant for pelvic exam or qualifying procedure: Chloé [...] UP PLAN: She is transferring care to [facility] and has appointment scheduled for early February [...] BLOOD BA NK TEST ORDERABLES Final Result [facility] [address] [place] [address], [facility] NPRG [facility] [address] [place] [address] * Panorama Screen - Sent Out Lab (01/13/2024 4:52 PM CDT) Panorama Screen SEE COMMENT 01/27/2024 10:45 AM CDT KEVIN Comment: For final report, select Lab-Send Out Lab Results hyperlink below. Blood (Blood, Venous) 01/13/2024 4:52 PM CDT 01/15/2024 7:06 AM CDT Narrative [employer] - 01/27/2024 10:45 AM CDT Specimen Information: Specimen ID: [id number] Specimen Type: Blood Specimen Collection Start Date: 01/13/2024 ??4:52 PM Specimen Received Date: 01/15/2024 ??7:06 AM Specimen ID: [id number] Specimen Type: Blood Specimen Collection Start Date: 01/13/2024 ??4:53 PM Specimen Received Date: 01/15/2024 ??7:06 AM Elisa Byrne APRN, C.N.P., M.S.N. LAB GENETIC TESTING Final Result [employer]. [address] [address], [facility] KEVIN [employer]. [address] [facility] [address] [place] [address] * Varicella-Zoster Antibody, IgG, Serum (01/13/2024 4:52 PM CDT) Varicella-Zoster Ab, IgG, S Positive 01/13/2024 8:41 PM CDT [facility] Comment: Results suggest response to immunization or prior exposure to the virus. ----REFERENCE VALUE---- Vaccinated: Positive (>=1.1 AI) Unvaccinated: Negative (<=0.8 AI) Varicella IgG Antibody Index 1.3 01/13/2024 8:41 PM CDT [place] Blood (Blood, Venous) 01/13/2024 4:52 PM CDT 01/13/2024 7:52 PM CDT Elisa Byrne APRN, C.N.P., M.S.N. LAB MICROBIO LOGY - BLOOD ORDERABLES Final Result [facility] [address] [place] [address], [facility] in [address] [address] * HIV-1/-2 Ag and Ab Scrn, Plasma [...] LOGY - BLOOD ORDERABLES Final Result [facility] [address] [place] [address], [facility] [place] [address] [place] [address] * Hepatitis C Virus Antibody Screen (01/13/2024 4:52 PM CDT) HCV Ab Scrn , S Negative Negative 01/15/2024 11:37 AM CDT [facility] Comment: Consumption of high-dose biotin supplement within 12 hours of blood collection for this test can cause false-negative results. Blood (Blood, Venous) 01/13/2024 4:52 PM CDT 01/15/2024 7:17 AM CDT Elisa Byrne APRN, C.N.P., M.S.N. LAB MICROBIO LOGY - BLOOD ORDERABLES Final Result Performing Organization Address City/[facility]/ZIP Co de Phone Number [facility] [address] [place] [address] [facility] [address] [place] [address] * HBs Antibody , Serum (01/13/2024 4:52 [...] LOGY - BLOOD ORDERABLES Final Result [facility] [address] [place] [address], [facility] MKTO [facility] in [place] [address] [place] [address] * (ABNORMAL) CBC with Differential, Blood (01/13/2024 [...] M.S.N. LAB BLOOD AD D-ON Final Result [facility] [address] [place] [address], [facility] NPRG [facility] [address] [place] [address] * Rubella Antibodies, IgG (01/13/2024 4:52 PM [...] BLOOD ORDERABLES Final Result Performing Organization Address City/[facility]/ZIP Co de Phone Number [facility] [address] [place] [address], [facility] [place] [address] [place] [address] * US OB First Trimester (01/13/2024 4:36 [...] Byrne APRN, C.N.P., M.S.N. IMG OB US AR OCEDURES Final Result * Bacterial Culture, Aerobic + Susceptibility, Urine (01/13/2024 4:33 PM CDT) Urine Culture Urogenital microbiota, susceptibilities not performed per laboratory criteria. 01/14/2024 3:41 PM CDT [facility] Urine (Urine, Midstream) 01/13/2024 4:33 PM CDT 01/13/2024 10:19 PM CDT Comment:Specimen Source Site : Urine Elisa Byrne APRN, C.N.P., M.S.N. LAB MICROBIOLOGY - GENERAL ORDERABLES Final Result [facility] [address] [place] [address], [facility] [place] [address] * (ABNORMAL) Urinalysis, with Microscopic: Urine, Midstream [...] 8.0 01/13/2024 4:38 PM CDT NPRG Specific [place] 1.025 1.001 - 1.035 01/13/2024 4:38 PM [...] M.S.N. LAB URINE OR DERABLES Final Result [facility] [address] [place] [address], [place] NPRG [facility] [address] [place] [address] * Chlamydia / Gonorrhoeae Amplified RNA (01/13/2024 [...] LAB MICROBIOLOGY - GENERAL ORDERABLES Final Result [facility] [place] [address], [facility] MKTO [address] [place] [address] documented in this encounter Visit Diagnoses Diagnosis Examination Normal First Trimester (HCC) Examination Normal First Trimester (HCC) documented in this encounter Additional Health Concerns Assessment Noted Time PHQ-9 Depression Total Score: 024 4:33 PM CDT documented as of this encounter
--- OUTSIDE RECORDS SUMMARY | 2024-03-07 13:54 | XMS_ITS | Clinical Summary ---
Author Organization [facility] Address [address] [facility] [place] [address] Care Team Providers Care Spinning Bath Patroller Name Role Phone Jose Alegre MD Primary Care Provider [phone] Allergies Active Allergy Reactions Criticality Noted Date [...] on file Legal Sex Female 5:09 AM CHARGE MACHINE OPERATOR Gender Identity Not on file Sexual Orientation Not on file Last Filed Vital Signs Vital Sign Reading Time Taken Comments Blood Pressure 127/91 06/22/2023 1:49 PM CHARGE MACHINE OPERATOR Pulse 87 06/22/2023 1:49 PM CHARGE MACHINE OPERATOR Temperature 36.6 ??C (97.9 ??F) 06/22/2023 1:49 PM CS T Respiratory Rate 16 06/22/2023 2:04 PM CHARGE MACHINE OPERATOR Oxygen Saturation 98% 06/22/2023 2:22 PM CHARGE MACHINE OPERATOR Inhaled Oxygen Concentration - - Weight 79.6 kg (175 lb 7.8 oz) 06/22/2023 10:31 AM CHARGE MACHINE OPERATOR Height 167.6 cm (5' 6) 06/22/2023 10:29 AM CHARGE MACHINE OPERATOR Body Mass Index 28.32 06/22/2023 10:29 AM CHARGE MACHINE OPERATOR Plan of Treatment Health Maintenance [...] 169 <200 mg/dL 03/04/2018 8:54 AM CDT [facility] Triglycerides 91 <150 mg/dL 03/04/2018 8:54 AM CDT [facility] HDL Cholesterol 50 >49 mg/dL 8 8:54 AM CDT [facility] LDL Cholesterol Calculated 101(H) <100 mg/dL 03/04/2018 8:54 AM CDT [facility] Comment: Above desirable: ??100-129 mg/dl Borderline High: ??130-159 mg/dL High: ? 160-189 mg/dL Very high: ? >189 mg/dl Non HDL Cholesterol 119 <130 mg/dL 03/04/2018 8:54 AM CDT [facility] Blood specimen (specimen) 03/04/2018 7:52 AM CDT 03/04/2018 7:54 AM CDT Liliana Benitez [facility] - BLOOD ORDERA BLES Final Result [facility] [address] [place] [address] from Last 3 Months or Most Recently Relevant to Health Maintenance Insurance BCBS OUT OF STATE BCBS OUT OF STATE Advance Directives For more information, please contact: [phone] * Full Code (Latest Code Status on File) Date Activated Date Inactivated Comments 03/03/2018 3:07 AM 03/04/2018 9:08 PM Question Answer Comments Code status determined by: Unable to det ermine; FULL CODE until documents or legal decision maker available Care Teams Spinning Bath Patroller Relationship Specialty Start Date End Date Jose Alegre MD PCP - General Family Practice 03/02/18
--- OUTSIDE RECORDS SUMMARY | 2024-03-07 13:54 | XMS_ITS | Encounter Summary ---
Author Organization [facility] Address [address] [place] [address] Care Team Providers Care Patient Accounting Representative Name Role Phone Unavailable Primary Care Provider Unavailabl e Encounter Details Date Type Department Care Team (Latest Contact Info) Description 12/16/2023 1:35 PM CDT Silent Schedule Department of Obstetrics and Gynecology in [place], [place] [address] [place] [phone] Elisa Byrne, JOSÉ, C.N.P., M.S.N. [address] [place] [phone] Discharge Disposition: Home or Self Care Social History Tobacco Use Types Packs/Day Years Used Date Smoking Tobacco: Some Days Cigarettes Smokeless Tobacco: Never Alcohol Use Standard Drinks/Week Comments No 0 (1 standard drink = 0.6 oz pur e alcohol) [facility] Utilities Answer Date Recorded In the past 12 months has e [employer], gas, oil, or water [employer] threatened to shut off services in your [...] How often do you attend chur or sabianist services? More than 4 times per year [...] PHQ-2 Score 6 02/23/2020 [facility] of Occupat ional Health - Occupational Stress [...] your living situation today? I have a [facility] place to live 12/09/2023 Education Answer [...] Sarah Conway APRNNKate., M.S.N. IMG OB US [place] OCEDURES Final Result documented in this encounter Visit Diagnoses Not on filedocumented in this encounter Additional Health Concerns Assessment Noted Time PHQ-9 Depression Total Score: 26 020 10:07 AM CDT documented as of this encounter
--- OUTSIDE RECORDS SUMMARY | 2024-03-07 13:54 | XMS_ITS | Encounter Summary ---
Author Organization [facility] Address [address] [place] [address] Care Team Providers Care Energy Control Officer Name Role Phone Unavailable Primary Care Provider Unavailabl e Reason for Referral * Outpatient (Routine) - Closed Specialty Diagnoses / Procedures Referred By Isai t Referred To Contact Obstetrics and Gynecology Diagnoses Examination Normal First Trimester (HCC) Elisa Byrne APRN C.N.P., M.S.N. [address] [place] [address] Phone: tel: fax: [facility] Region Referral ID Status Reason Start Date Expiration Date Visits Re quested Visits Authorized [id number] Closed 12/01/2023 06/01/2025 1 1 Scheduling Instructions Schedule as LAYOUT WORKER visit Encounter Details Date Type Department Care Team (Late st Contact Info) Description 12/01/2023 Orders Only Department of Obstetrics and Gynecology in [place], [place] [address] [place] [phone] Elisa Byrne APRN, C.N.P., M.S.N. [address] [place] [phone] Examination Normal First Trimester (HCC) (Primary Dx) [...] How often do you attend chur or gnosticist services? More than 4 times per year [...] Answer Date Recorded PHQ-2 Score 6 02/23/2020 [facility] - Occupational Stress Questionnaire [...]
--- OUTSIDE RECORDS SUMMARY | 2024-03-07 13:54 | XMS_ITS | Encounter Summary ---
Author Organization [facility] Address [address] [place] [address] Care Team Providers Care Grants Manager Name Role Phone Unavailable Primary Care Provider Unavailabl e Reason for Referral * Outpatient (Routine) - Closed Specialty Diagnoses / Procedures Referred By Contac t Referred To Contact Obstetrics and Gynecology Diagnoses Examination Normal First Trimester (HCC) Elisa Byrne APRN C.N.P., M.S.N. [address] [place] [address] Phone: tel: fax: [facility] Region Referral ID Status Reason Start Date Expiration Date Visits Re quested Visits Authorized [id number] Closed 12/16/2023 06/16/2025 1 1 Reason for Visit * Reason Comments Confirmation Of * Outpatient (Routine) - Closed Specialty Diagnoses / Procedures Referred By Contac t Referred To Contact Obstetrics and Gynecology Diagnoses Examination Normal First Trimester (HCC) Elisa Byrne APRN, C.N.P., M.S.N. [address] [place] [address] Phone: tel: fax: [facility] Region Referral ID Status Reason Start Date Expiration Date Visits Re quested Visits Authorized [id number] Closed 12/01/2023 06/01/2025 1 1 Encounter Details Date Type Department Care Team (Late st Contact Info) Description 12/16/2023 1:30 PM CDT Office Visit Department of Obstetrics and Gynecology in [place], [place] [address] [place] [phone] Elisa Byrne, JOSÉ, C.N.P., M.S.N. [address] [place] [phone] Examination Normal First Trimester (HCC) Discharge Disposition: Home or Self Care Social History Tobacco Use Types Packs/Day Years Used Date Smoking Tobacco: Some Days Cigarettes Smokeless Tobacco: Never Alcohol Use Standard Drinks/Week Comments No 0 (1 standard drink = 0.6 oz pur e alcohol) [facility] Utilities Answer Date Recorded In the past 12 months has e [employer], gas, oil, or water [employer] threatened to shut off services in your [...] Never 02/23/2020 How often do you attend [facility] or islam services? More than 4 times per year 02/23/2020 Do you belong to any clubs o r organizations such as sabianist groups, unions, fraternal or athletic groups, or [...] Answer Date Recorded PHQ-2 Score 6 02/23/2020 [facility] - Occupational Stress Questionnaire Answer Date [...] your living situation today? I have a [facility] place to live 12/09/2023 Education Answer Date [...] Patient Instructions * Patient Instructions* Elisa Byrne, MONUMENT STONECUTTER, C.N.P., M.S.N. - 12/16/2023 1:30 PM CDT Congratulations on your ! Thank you for trusting [facility] with your care. Thismessage contains education to support you during the first trimester of your . Please watch the video, Your Care, at the link below. This video link is for patient and family education use only. Do not post on websites or share publicly. [email or web address] Please review these materials via the hyperlinks below: Even if a Mother has HIV, Her Baby Doesn't Have To [id number] [facility] Guide to a Healthy Bookmark KZ1874-32 Standard Labs NK2373-35 Why Should I Consider Giving My Baby Breast Milk GY3201-07 Patient Billable Services [id number] You and Your Child WIC Can Help [id number] Education Classes Registration Website SP2702-59 Public Health referral: [email or web address]?v=[email or web address] The [employer] antimicrobial stewardship program has created a patient education video for patientswith a penicillin allergy label to explain the potential harms of this label and encourage them to seek out penicillin allergy testing. The video can be previewed here: [email or web address]/[email or web address] Many patients have questions related to Genetic Screening during . We have included some information for you to review. Guide to a Healthy - Chapter 20: Genetic Screening Guide to a Health - Chapter 21: testing Optional Tests JR5650-53 Genetic Support (Sinhala Version) Genetic Support (Latvian version) Managing Nausea and Vomiting During It [...] help, try stopping the vitamins. You can restartthem when your nausea is better. Lifestyle Try [...] [place], talk with your health care provider. Krce-yoo-kyyojif supplements and medications If diet, lifestyle and [...] help. In addition, you can also add czsx-bbx-aszernu doxylamine (Unisom, Aldex AN) at bedtime along [...] call: During work hours, Thursday - Thursday [place] [phone] After hours and on weekends or holidays HUMAN RESOURCES PSYCHOLOGIST Triage: [phone] This material is for your education and information only. This content does not replace medical advice, diagnosis or treatment. New medical research may change this information. If you have questionsabout a medical condition, always talk with your health care provider. ?? 2013 [facility] Medical Education and Research ([facility]). All rights reserved. MEDICATIONS SAFE DURING AND [...] more than a week and Afrin Nasal [place] only as a lastresort - Do Not [...] ct. estragole Ocimum basilicum Birch Betula lenta *Camphor Cinnamomum camphora Hyssop Hyssopus officinalis Mugwort Artemisia vulgaris Parsley seed or leaf Petroselinum sativum Pennyroyal Mentha pulegium David Salvia officinalis Tansy Tanacetum vulgare Tarragon Artemisia dracunculus Thuja Thuja occidentalis [place] Gaultheria procumbens [place] Artemisia absinthium *Note that *Camphor is not the same as [place] chemotype Linalool (Cinnamomum camphora ct. Linalool), which [...] restarting 15 mg dosage at end of trimester depending upon how she is doing. [...] Subtle movement present on exam today. us Elisa Byrne APRN, C.N.P., M.S.N. IMG OB US [place] OCEDURES Final Result documented in this encounter Visit Diagnoses Diagnosis Examination Normal First Trimester (HCC) documented in this encounter Additional Health Concerns Assessment Noted Time PHQ-9 Depression Total Score: 26 02/22/ 020 10:07 AM CDT documented as of this encounter
--- OUTSIDE RECORDS SUMMARY | 2024-03-07 13:54 | XMS_ITS | Encounter Summary ---
Author Organization [facility] Address [address] [place] [address] Care Team Providers Care Service Employee Name Role Phone Unavailable Primary Care Provider Unavailabl e Encounter Details Date Type Department Care Team (Latest Contact Info) Description 11/30/2023 3:36 PM CDT - 11/30/2023 11:59 PM CDT Hospital Encounter Department of Radiology in [place], [place] [address] [place] [phone] Elisa Byrne, JOSÉ, C.N.P., M.S.N. [address] [place] [phone] Bleeding Vaginal Trimester First (HCC) Discharge Disposition: [...] How often do you attend chur or mandaen services? More than 4 times per year 02/23/2020 Do you belong to any clubs o r organizations such as denominational groups, unions, fraternal or athletic groups, or [...] Answer Date Recorded PHQ-2 Score 6 02/23/2020 [facility] of Occupat ional Health - [...] your living situation today? I have a [facility] place to live 10/31/2022 Education Answer [...] 6 d, LG: 07/26/2024 INTRAUTERINE Pole: Normal, [place]-Rump Length: 6.6 mm Gestational Sac: Normal Yolk [...] w 6 d, LG:07/26/2024 INTRAUTERINE Pole: Normal, [place]-Rump Length: 6.6 mm Gestational Sac: Normal Yolk [...] Byrne APRN, C.N.P., M.S.N. IMG OB US [place] OCEDURES Final Result documented in this encounter Visit Diagnoses Diagnosis Bleeding Vaginal Trimester First (HCC) documented in this encounter Additional Health Concerns Assessment Noted Time PHQ-9 Depression Total Score: 26 020 10:07 AM CDT documented as of this encounter
--- NOTE | 2024-03-07 14:00 | CRLHL7_ITS ---
For Patients: As a result of the Century Cures Act, medical imaging exams and procedure reports are released immediately into your electronic medical record. You may view this report before your referring provider. If you have questions, please contact your health care provider. INDICATION: Second trimester anatomical survey. COMPARISON: None. TECHNIQUE: Transabdominal and endovaginal pelvic ultrasound. FINDINGS: number: 1 position: Cephalic. Placenta: Posterior. On the endovaginal component of the study the lower edge of the placenta covers the internal cervical os. Amniotic fluid: Subjectively normal volume. Uterus: The cervical length is 3.5cm. No significant uterine findings. Right ovary: Not seen. Left ovary: Not seen. heart rate: 149bpm. BPD: 4.9cm; 20 weeks and 6 days. Percentile: 79% HC: 17.9cm; 20 weeks and 2 days. Percentile: 52% AC: 16.4cm; 21 weeks and 3 days. Percentile: 84% FL: 3.4cm; 20 weeks and 4 days. Percentile: 59% US EGA: 20 weeks and 4 days. US LG: 07/21/2024 Established LG: 07/24/2024 EFW: 393gm, +/-59gm, corresponding to the 89th percentile for the established LG. Documented Anatomy: Head and Neck Midline falx: Seen. Choroid plexus: Seen. Lateral ventricles: Seen. Cavum septum pellucidum: Not seen. Cerebellum: Seen. Cisterna Magna: Seen. Nuchal fold: Seen. Face Upper lip: Seen. Chest Cardiac axis: Seen. 4 Chamber view: Limited due to positioning. LVOT: Seen. RVOT: Seen. Abdomen Stomach: Seen. Kidneys: Seen. Bowel: Seen. Urinary bladder: Limited, partially obscured by the bony pelvis. Abdominal cord insertion: Seen. 3 vessel cord: Seen. Limbs Right arm and hand: Seen. Left arm and hand: Seen. Right leg and foot: Seen. Left leg and foot: Seen. Spine in Sagittal and Transverse Planes Cervical: Seen. Thoracic: Seen. Lumbar: Seen. Sacral: Seen. Motion: Present. anatomy documented as per the 2018 [id number] Practice Parameter for the performance of standard diagnostic ultrasound examinations. IMPRESSION: 1. The cavum septum pellucidum is not seen. Limited four-chamber heart view and limited view of the bladder due to position. Follow-up is recommended to better document this anatomy. 2. Placenta previa. Dictated by Tyrone Broussard MD @ 03/08/2024 10:21:21 AM (Electronically Signed)
== END 2024-03-07 13:49 | disposition home or self-care (01) ==
LOC: US 13:50
PROVIDERS: PCP Family Medicine; Visit Provider Physician Assistant
DX: Z34.92 Encounter for supervision of normal pregnancy, unspecified, second trimester (principal); O44.02 Complete placenta previa NOS or without hemorrhage, second trimester; Z3A.20 20 weeks gestation of pregnancy
CPT/HCPCS: 76805

== ENCOUNTER 2024-03-29 23:45 | Outpatient (CLI) | payer MEDICAID, SELFPAY ==
--- OUTSIDE RECORDS SUMMARY | 2024-03-29 23:47 | XMS_ITS | Referral Summary ---
Author Organization [facility] Address [address] [place] [address] Care Team Providers Care Simulation Tech Name Role Phone Unavailable Primary Care Provider Unavailabl e Source Comments Patient records contain information from all sites at [facility]. For routine questions regarding patient records, call [phone] during business hours, M-F 8:00 AM - 5:00 PM Central Time. Record requests for emergency care only can be directed to [phone] at any time.[facility] Encounters Date Type Department Care Team Description 01/22/2024 Clinical Communication Department of Obstetrics and Gynecology in [address] [phone] Elisa Byrne APRN, C.N.P., M.S.N. 01/13/2024 4:36 PM CDT - 01/13/2024 11:59 PM CDT Hospital Encounter Department of Laboratory Medicine in [address] [phone] Elisa Byrne APRN, C.N.P., M.S.N. Examination Normal First Trimester (HCC) Discharge Disposition: Home or Self Care 01/13/2024 4:00 PM CDT Silent Schedule Department of Obstetrics and Gynecology in [address] [phone] Elisa Byrne APRN C.N.P., M.S.N. 01/13/2024 3:00 PM CDT Initial Department of Obstetrics and Gynecology in [place], [place] [address] [place] [address] Elisa Byrne APRN, C.N.P., M.S.N. GA: 12w3d Discharge Disposition: Home or Self Care from [...] before 16 weeks gestation. 90 tablet 2 Active Active Problems Problem Noted Date Diagnosed [...] Date Hypothyroidism 07/23/2023 07/24/2023 Incomplete 12/15/2017 01/22/20 Overview (12/15/2017): Added automatically from request for surgery [id number] Social History Tobacco Use Types Packs/Day Years Used Date Smoking Tobacco: Former Cigarettes Passive Smoke Exposure: Past Smokeless Tobacco: Never Tobacco Cessation:Counseling Given: Not Answered Alcohol Use Standard Drinks/Week Comments No 0 (1 standard drink = 0.6 oz pur e alcohol) [facility] Utilities Answer Date Recorded In the past 12 months has e [employer], gas, oil, or water [employer] threatened to shut off services in your [...] often do you attend chur ch or roman catholic services? More than 4 times per year 02/23/2020 Do you belong to any clubs o r organizations such as restoration groups, unions, fraternal or athletic groups, or [...] Answer Date Recorded PHQ-2 Score 0 01/13/2024 [facility] of Occupat ional [...] your living situation today? [facility] 12/09/2023 Education Answer [...] 99 01/13/2024 2:51 PM CDT Temperature 37.1 C (98.8 F) 12/16/2023 1:32 PM CDT Respiratory Rate 20 07/11/2023 1:00 PM MANAGER FLEET Oxygen Saturation 96% 07/11/2023 1:00 PM MANAGER FLEET Inhaled Oxygen Concentration - - Weight 72.8 [...] GENOTYPING, PCR, THINPREP Routine 06/10/2022 2:36 PM MANAGER FLEET from Last 3 Months or Most Recently Relevant to Health Maintenance Results * Testing Location (01/13/2024 4:53 PM CDT) Testing Location [facility] DEFAULT 01/13/2024 4:57 PM CDT NPRG Blood 01/13/2024 4:53 PM CDT 01/13/2024 4:57 PM CDT us Dylon Conway APRN.N.Terrence., M.S.N. LAB BLOOD BA NK TEST ORDERABLES Final Result Performing Organization Address City/[facility]/ZIP Co de Phone Number [facility] [address] [place] [address], [facility] NPRG [address] [address] * Type and Screen (with Reflex Antibody [...] BLOOD BA NK TEST ORDERABLES Final Result [facility] [address] [place] [address], [facility] NPRG [facility] [address] [place] [address] * HBs Antibody , Serum (01/13/2024 4:52 PM CDT) HBs Antibody , S Positive 01/14/2024 2:16 AM CDT [facility] Comment: Patient is considered to have been exposed to HBV or immune from HBV vaccination. ----REFERENCE VALUE---- Unvaccinated: Negative Vaccinated: Positive HBs Antibody, Quantitative, S 12.12 mIU/mL 01/14/2024 2:16 AM CDT MK Comment: ----REFERENCE VALUE---- <8.50: Negative 8.50-11.49: Indeterminate >=11.50: Positive Blood (Blood, Venous) 01/13/2024 4:52 PM CDT 01/13/2024 10:17 PM CDT Dylon Conway APRN.N.Terrence., M.S.N. LAB MICROBIO LOGY - BLOOD ORDERABLES Final Result [facility] [address] [place] [address], [facility] in [place] [address] [place] [address] * Hepatitis C Virus Antibody Screen (01/13/2024 4:52 PM CDT) HCV Ab Scrn , S Negative Negative 01/15/2024 11:37 AM CDT [facility] Comment: Consumption of high-dose biotin supplement within 12 hours of blood collection for this test can cause false-negative results. Blood (Blood, Venous) 01/13/2024 4:52 PM CDT 01/15/2024 7:17 AM CDT Dylon Conway APRN.N.P., M.S.N. LAB MICROBIO LOGY - BLOOD ORDERABLES Final Result [facility] [address] [place] [address] [facility] [place][note 2] [address] [place] [address] * Panorama Screen - Sent Out Lab (01/13/2024 4:52 PM CDT) Panorama Screen SEE COMMENT 01/27/2024 10:45 AM CDT [facility] Comment: For final report, select Lab-Send Out Lab Results hyperlink below. Blood (Blood, Venous) 01/13/2024 4:52 PM CDT 01/15/2024 7:06 AM CDT Narrative [employer] - 01/27/2024 10:45 AM CDT Specimen Information: Specimen ID: [id number] Specimen Type: Blood Specimen Collection Start Date: 01/13/2024 4:52 PM Specimen Received Date: 01/15/2024 7:06 AM Specimen ID: [id number] Specimen Type: Blood Specimen Collection Start Date: 01/13/2024 4:53 PM Specimen Received Date: 01/15/2024 7:06 AM Elisa Byrne APRN C.N.P., M.S.N. LAB GENETIC TESTING Final Result Performing Organization Address City/[facility] Co de Phone Number [employer] [address] [place] [address], [facility] KEVIN [employer] [address] [place] [address] * HIV-1/-2 Ag and Ab Scrn, Plasma (01/13/2024 4:52 PM CDT) HIV Ag/Ab Scrn, P Negative Negative 01/13/2024 9:01 PM CDT [facility] Comment: Negative result does not rule out [...] CDT 01/13/2024 7:52 PM CDT us Dylon oCnway APRN.N.P., M.S.N. LAB MICROBIO LOGY - BLOOD ORDERABLES Final Result [facility] [address] [address], [facility] [address] [address] * Rubella Antibodies, IgG (01/13/2024 4:52 PM [...] MICROBIO LOGY - BLOOD ORDERABLES Final Result [facility] [address] [place] [address], [facility] in [place] [address] * (ABNORMAL) CBC with Differential, Blood (01/13/2024 [...] M.S.N. LAB BLOOD AD D-ON Final Result [facility] [address] [place] [address], [facility] NPRG [facility] [address] [place] [address] * Varicella-Zoster Antibody, IgG, Serum (01/13/2024 4:52 PM CDT) Varicella-Zoster Ab, IgG, S Positive 01/13/2024 8:41 PM CDT [facility] Comment: Results suggest response to immunization or prior exposure to the virus. ----REFERENCE VALUE---- Vaccinated: Positive (>=1.1 AI) Unvaccinated: Negative (<=0.8 AI) Varicella IgG Antibody Index 1.3 01/13/2024 8:41 PM CDT [facility] Blood (Blood, Venous) 01/13/2024 4:52 PM CDT 01/13/2024 7:52 PM CDT Sarah Conway APRNNKate., M.S.N. LAB MICROBIO LOGY - BLOOD ORDERABLES Final Result [facility] [address] [place] [address], [place] [facility] [place] [address] [place] [address] * US OB First Trimester (01/13/2024 4:36 PM CDT) Anatomical Region Laterality Modality Body, Ultrasound OB RST LOS, Ultrasound ARZ LOS N/A Ultrasound Narrative 01/13/2024 4:36 PM CDT Exam: Viability Comparison: 12/16/23 Findings: Gestational age and LG by LMP or OB/EHR assignment: 12w3d LG: 07/24/2024 Age and LG by current ultrasound measurments: 12w3d LG: 07/24/2024 Intra-uterine: Embryo and Gestational sac Heart Rate: 146 bpm. Maternal ovaries/adnexae: not examined Impression : Fetus with interval growth and development since last ultrasound, size consistent with earlier dating and confirms EDC of 07/24/24. Fetus in variable positions during exam today. us Elisa Byrne APRN, C.N.P., M.S.N. IMG OB US RI OCEDURES Final Result * Bacterial Culture, Aerobic + Susceptibility, Urine (01/13/2024 4:33 PM CDT) Urine Culture Urogenital microbiota, susceptibilities not performed per laboratory criteria. 01/14/2024 3:41 PM CDT [facility] Urine (Urine, Midstream) 01/13/2024 4:33 PM CDT 01/13/2024 10:19 PM CDT Comment:Specimen Source Site : Urine Sarah Conway APRNNKate., M.S.N. LAB MICROBIOLOGY - GENERAL ORDERABLES Final Result [facility] [address] [place] [address], [facility] [place] [address] * Chlamydia / Gonorrhoeae Amplified RNA (01/13/2024 [...] LAB MICROBIOLOGY - GENERAL ORDERABLES Final Result [facility] [address] [place] [address], [facility] [address] [address] * (ABNORMAL) Urinalysis, with Microscopic: Urine, Midstream [...] 8.0 01/13/2024 4:38 PM CDT NPR[facility] Specific Fossil 1.025 1.001 - 1.035 01/13/2024 4:38 PM [...] OR DERABLES Final Result Performing Organization Address City/[facility] Co de Phone Number [facility] [address] [place] [address], [facility] NPRG [facility] [address] [place] [address] * HPV with Genotyping, PCR, ThinPrep (06/10/2022 2:36 PM MANAGER FLEET) Pathologist [facility] HPV with Genotyping, ThinPrep, PCR Negative Negative 06/11/2022 2:27 PM MANAGER FLEET [facility] Comment: Negative for high risk HPV by nucleic acid amplification. The following high risk HPV types were not detected: 16, 18, 31, 33, 35, 39, 45, 51, 52, 56, 58, 59, 66, and 68 This result does not rule out HPV in the patient, as the sensitivity of the test depends on the timing of the specimen collection and the quality of the specimen. Result should be correlated with patient's history, clinical presentation, and VIDEO CLERK cytology report. 06/10/2022 2:36 PM MANAGER FLEET 06/11/2022 7:20 AM MANAGER FLEET Elisa Byrne APRN, C.N.P., M.S.N. LAB MICROBIOLOGY - GENERAL ORDERABLES Final Result [facility] [address] [place] [address], [place] [facility] [place] [address] [place] [address] from Last 3 Months or Most Recently Relevant to Health Maintenance Insurance [place] MED[place]
--- OUTSIDE RECORDS SUMMARY | 2024-03-29 23:47 | XMS_ITS | Encounter Summary ---
Author Organization [facility] Address [address] [place] [address] Care Team Providers Care Range Examiner Name Role Phone Unavailable Primary Care Provider Unavailabl e Encounter Details Date Type Department Care Team (Latest Contact Info) Description 01/13/2024 4:36 PM CDT - 01/13/2024 11:59 PM CDT Hospital Encounter Department of Laboratory Medicine in [place], [place] [address] [place] [phone] Elisa Byrne, JOSÉ, C.N.P., M.S.N. [address] [place] [phone] Examination Normal First Trimester (HCC) Discharge Disposition: Home or Self Care Social History Tobacco Use Types Packs/Day Years Used Date Smoking Tobacco: Former Cigarettes Passive Smoke Exposure: Past Smokeless Tobacco: Never Alcohol Use Standard Drinks/Week Comments No 0 (1 standard drink = 0.6 oz pur e alcohol) [facility] Utilities Answer Date Recorded In the [...] How often do you attend chur or baptism services? More than 4 times per year 02/23/2020 Do you belong to any clubs o r organizations such as oriental orthodox groups, unions, fraternal or athletic groups, [...] Answer Date Recorded PHQ-2 Score 0 01/13/2024 [facility] of Occupat ional Health - Occupational Stress [...] your living situation today? I have a [facility] place to live 12/09/2023 Education Answer [...] Location (01/13/2024 4:53 PM CDT) Testing Location [facility] DEFAULT 01/13/2024 4:57 PM CDT [facility] Blood 01/13/2024 4:53 PM CDT 01/13/2024 4:57 PM CDT us Elisa Byrne APRN C.N.P., M.S.N. LAB BLOOD BA NK TEST ORDERABLES Final Result [facility] [address] [place] [address], [facility] NPRG [facility] [address] [place] [address] * Type and Screen (with Reflex Antibody [...] BLOOD BA NK TEST ORDERABLES Final Result [facility] [address] [place] [address], [place] [facility] [address] [place] [address] * Panorama Screen - Sent Out Lab (01/13/2024 4:52 PM CDT) [facility] Panorama Screen SEE COMMENT 01/27/2024 10:45 AM CDT [facility] Comment: For final report, select Lab-Send Out Lab Results hyperlink below. Blood (Blood, Venous) 01/13/2024 4:52 PM CDT 01/15/2024 7:06 AM CDT Narrative [employer] - 01/27/2024 10:45 AM CDT Specimen Information: Specimen ID: [id number] Specimen Type: Blood Specimen Collection Start Date: 01/13/2024 4:52 PM Specimen Received Date: 01/15/2024 7:06 AM Specimen ID: [id number] Specimen Type: Blood Specimen Collection Start Date: 01/13/2024 4:53 PM Specimen Received Date: 01/15/2024 7:06 AM us Elisa Byrne APRN, C.N.P., M.S.N. LAB GENETIC TESTING Final Result [employer] [address] [place] [address], [place] [facility] [employer] [address] [place] [address] * Varicella-Zoster Antibody, IgG, Serum (01/13/2024 4:52 [...] MICROBIO LOGY - BLOOD ORDERABLES Final Result [facility] [address] [place] [address], [facility] [place] [address] * HIV-1/-2 Ag and Ab Scrn, Plasma [...] P Negative Negative 01/13/2024 9:01 PM CDT [facility] Comment: Negative result does not rule out HIV infection. If exposure to HIV infection occurred <14 days ago, contact the laboratory to request addition of HIV-1/HIV-2 RNA detection , Plasma (HPP12). Blood (Blood, Venous) 01/13/2024 4:52 PM CDT 01/13/2024 7:52 PM CDT Elisa Byrne APRN, C.N.P., M.S.N. LAB MICROBIO LOGY - BLOOD ORDERABLES Final Result Performing Organization Address City/[facility]/ZIP Co de Phone Number [address] [address], [facility] in [address] [address] * Hepatitis C Virus Antibody Screen (01/13/2024 4:52 PM CDT) HCV Ab Scrn , S Negative Negative 01/15/2024 11:37 AM CDT [facility] Comment: Consumption of high-dose biotin supplement within 12 hours of blood collection for this test can cause false-negative results. Blood (Blood, Venous) 01/13/2024 4:52 PM CDT 01/15/2024 7:17 AM CDT Sarah Conway APRNNKate., M.S.N. LAB MICROBIO LOGY - BLOOD ORDERABLES Final Result [facility] [address] [place] [address] [facility] [address] [place] [address] * HBs Antibody , Serum (01/13/2024 4:52 PM CDT) HBs Antibody , S Positive 01/14/2024 2:16 AM CDT TO Comment: Patient is considered to have been exposed to HBV or immune from HBV vaccination. ----REFERENCE VALUE---- Unvaccinated: Negative Vaccinated: Positive HBs Antibody, Quantitative, S 12.12 mIU/mL 01/14/2024 2:16 AM CDT [facility] Comment: ----REFERENCE VALUE---- <8.50: Negative 8.50-11.49: Indeterminate >=11.50: Positive Blood (Blood, Venous) 01/13/2024 4:52 PM CDT 01/13/2024 10:17 PM CDT us Elisa Byrne APRN C.N.P., M.S.N. LAB MICROBIO LOGY - BLOOD ORDERABLES Final Result [place] [address], [place] [address] * (ABNORMAL) CBC with Differential, Blood (01/13/2024 [...] us Dylon Conway APRN.N.Terrence., M.S.N. LAB BLOOD AD D-ON Final Result Performing Organization Address City/[facility] Co de Phone Number [facility] [address] [place] [address], [facility] NPRG [place] [address] [place] [address] * Rubella Antibodies, IgG (01/13/2024 4:52 PM CDT) [facility] Rubella Ab, IgG, S Positive 01/13/2024 8:41 [...] MICROBIO LOGY - BLOOD ORDERABLES Final Result [facility] [address] [place] [address], [facility] in [place] [address] documented in this encounter Visit Diagnoses Diagnosis Examination Normal First Trimester (HCC) documented in this encounter Additional Health Concerns Assessment Noted Time PHQ-9 Depression Total Score: 10 024 4:33 PM CDT documented as of this encounter
--- OUTSIDE RECORDS SUMMARY | 2024-03-29 23:47 | XMS_ITS ---
Author Organization [facility] Address [address] [place] [address] Care Team Providers Care Grinder Operator External Tool Name Role Phone Unavailable Unavailable Unavailable Surgery Details Not on file Complications Check Surgery Details section. Procedure Estimated Blood Loss Check Surgery Details section. Procedure Findings Check Surgery Details section. Procedure Specimens Taken Check Surgery Details section.
--- OUTSIDE RECORDS SUMMARY | 2024-03-29 23:47 | XMS_ITS | Encounter Summary ---
Author Organization [facility] Address [address] [place] [address] Care Team Providers Care Accredited Farm Manager Name Role Phone Unavailable Primary Care Provider Unavailabl e Encounter Details Date Type Department Care Team (Late st Contact Info) Description 01/22/2024 Clinical Communication Department of Obstetrics and Gynecology in [place], [place] [address] [place] [phone] Elisa Byrne, JOSÉ, C.N.P., M.S.N. [address] [place] [phone] Social History Tobacco Use Types Packs/Day Years Used Date Smoking Tobacco: Former Cigarettes Passive Smoke Exposure: Past Smokeless Tobacco: Never Alcohol Use Standard Drinks/Week Comments No 0 (1 standard drink = 0.6 oz pur e alcohol) [facility] Utilities Answer Date Recorded In the past 12 months has [employer] oil, or water [employer] threatened to shut off services in your [...] How often do you attend chur or restoration services? More than 4 times per year 02/23/2020 Do you belong to any clubs o r organizations such as anabaptism groups, unions, fraternal or athletic groups, or [...] Answer Date Recorded PHQ-2 Score 0 01/13/2024 [facility] of Occupat ional Health - Occupational [...] your living situation today? I have a [facility] place to live 12/09/2023 Education Answer [...]
--- OUTSIDE RECORDS SUMMARY | 2024-03-29 23:47 | XMS_ITS | Clinical Summary ---
Author Organization [facility] Address [address] [place] [address] Care Team Providers Care Systems Manager Name Role Phone Unavailable Primary Care Provider Unavailabl e Source Comments Patient records contain information from all sites at [facility]. For routine questions regarding patient records, call [phone] during business hours, M-F 8:00 AM - 5:00 PM Central Time. Record requests for emergency care only can be directed to [phone] at any time.[facility] Allergies Active Allergy Reactions Criticality Noted Date [...] (12/15/2017): Added automatically from request for surgery [id number] Encounters Date Type Department Care Team Description 01/22/2024 Clinical Communication Department of Obstetrics and Gynecology in [address] [phone] Elisa Byrne, JOSÉ, C.N.P., M.S.N. 01/13/2024 4:36 PM CDT - 01/13/2024 11:59 PM CDT Hospital Encounter Department of Laboratory Medicine in [address] [place] [address] Elisa Byrne APRN, C.N.P., M.S.N. Examination Normal First Trimester (HCC) Discharge Disposition: Home or Self Care 01/13/2024 4:00 PM CDT Silent Schedule Department of Obstetrics and Gynecology in [address] [phone] Elisa Byrne APRN, C.N.P., M.S.N. 01/13/2024 3:00 PM CDT Initial Department of Obstetrics and Gynecology in [address] [phone] Elisa Byrne APRN, C.N.P., M.S.N. GA: 12w3d [...] drink = 0.6 oz pur e alcohol) [facility] Utilities Answer Date Recorded In the past [address] [facility] [employer], gas, oil, or water [employer] threatened to shut off services in your [...] How often do you attend chur or yazidism services? More than 4 times per year 02/23/2020 Do you belong to any clubs o r organizations such as advent groups, unions, fraternal or athletic groups, or [...] Answer Date Recorded PHQ-2 Score 0 01/13/2024 [facility] - Occupational Stress [...] have a [facility] place to live 12/09/2023 Education Answer [...] CDT Respiratory Rate 20 07/11/2023 1:00 PM DIRECTOR OF PROFESSIONAL SERVICES Oxygen Saturation 96% 07/11/2023 1:00 PM DIRECTOR OF PROFESSIONAL SERVICES Inhaled Oxygen Concentration - - Weight 72.8 [...] GENOTYPING, PCR, THINPREP Routine 06/10/2022 2:36 PM DIRECTOR OF PROFESSIONAL SERVICES from Last 3 Months or Most Recently Relevant to Health Maintenance Results * Testing Location (01/13/2024 4:53 PM CDT) Testing Location [facility] DEFAULT 01/13/2024 4:57 PM CDT [facility] Blood 01/13/2024 4:53 PM CDT 01/13/2024 4:57 PM CDT Sarah Conway APRNNKate., M.S.N. LAB BLOOD BA NK TEST ORDERABLES Final Result [facility] [address] [place] [address], [facility] [place] [address] [place] [address] * Type and Screen (with Reflex Antibody [...] BLOOD BA NK TEST ORDERABLES Final Result [facility] [address] [place] [address], [facility] [place] [address] [place] [address] * HBs Antibody , Serum (01/13/2024 4:52 PM CDT) HBs Antibody , S Positive 01/14/2024 2:16 AM CDT [facility] Comment: Patient is considered to have been exposed to HBV or immune from HBV vaccination. ----REFERENCE VALUE---- Unvaccinated: Negative Vaccinated: Positive HBs Antibody, Quantitative, S 12.12 mIU/mL 01/14/2024 2:16 AM CDT [facility] Comment: ----REFERENCE VALUE---- <8.50: Negative 8.50-11.49: Indeterminate >=11.50: Positive Blood (Blood, Venous) 01/13/2024 4:52 PM CDT 01/13/2024 10:17 PM CDT Elisa Byrne APRN, C.N.P., M.S.N. LAB MICROBIO LOGY - BLOOD ORDERABLES Final Result [facility] [address] [place] [address], [facility] [place] [address] * Hepatitis C Virus Antibody Screen (01/13/2024 4:52 PM CDT) [facility] HCV Ab Scrn , S Negative Negative 01/15/2024 11:37 AM CDT [facility] Comment: Consumption of high-dose biotin supplement within 12 hours of blood collection for this test can cause false-negative results. Blood (Blood, Venous) 01/13/2024 4:52 PM CDT 01/15/2024 7:17 AM CDT Elisa Byrne APRN, C.N.P., M.S.N. LAB MICROBIO LOGY - BLOOD ORDERABLES Final Result [facility] [address] [address] [facility] [address] [place] [address] * Panorama Screen - Sent Out Lab (01/13/2024 4:52 PM CDT) Pathologist [facility] Panorama Screen SEE COMMENT 01/27/2024 10:45 AM CDT [facility] Comment: For final report, select Lab-Send Out Lab Results hyperlink below. Blood (Blood, Venous) 01/13/2024 4:52 PM CDT 01/15/2024 7:06 AM CDT [facility] - 01/27/2024 10:45 AM CDT Specimen Information: Specimen ID: [id number] Specimen Type: Blood Specimen Collection Start Date: 01/13/2024 4:52 PM Specimen Received Date: 01/15/2024 7:06 AM Specimen ID: [id number] Specimen Type: Blood Specimen Collection Start Date: 01/13/2024 4:53 PM Specimen Received Date: 01/15/2024 7:06 AM Dylon Conway APRN.N.P., M.S.N. LAB GENETIC TESTING Final Result [facility] [address] [place] [address], [facility] KEVIN [facility] [address] [place] [address] * HIV-1/-2 Ag and Ab Scrn, Plasma (01/13/2024 4:52 PM CDT) HIV Ag/Ab Scrn, P Negative Negative 01/13/2024 9:[address] [facility] Comment: Negative result does not rule out [...] P Negative Negative 01/13/2024 9:01 PM CDT [facility] Comment: Negative result does not rule out HIV infection. If exposure to HIV infection occurred <14 days ago, contact the laboratory to request addition of HIV-1/HIV-2 RNA detection , Plasma (HPP12). Blood (Blood, Venous) 01/13/2024 4:52 PM CDT 01/13/2024 7:52 PM CDT Dylon Conway APRN.N.Terrence., M.S.N. LAB MICROBIO LOGY - BLOOD ORDERABLES Final Result Performing Organization Address [facility] Co de Phone Number [facility] [address] [place] [address], [facility] in [address] [address] * Rubella Antibodies, IgG (01/13/2024 4:52 PM CDT) Rubella Ab, IgG, S Positive 01/13/2024 8:[address] [facility] Comment: Results suggest response to immunization or prior exposure to the virus. ----REFERENCE VALUE---- Vaccinated: Positive (>=1.0 AI) Unvaccinated: Negative (<=0.7 AI) Rubella IgG Antibody Index 1.4 01/13/2024 8:[address] [facility] Blood (Blood, Venous) 01/13/2024 4:52 PM CDT 01/13/2024 7:52 PM CDT Dylon Conway APRN.N.P., M.S.N. LAB MICROBIO LOGY - BLOOD ORDERABLES Final Result Performing Organization Address [facility]/ZIP Co de Phone Number [facility] [address] [place] [phone], [place] [address] * (ABNORMAL) CBC with Differential, Blood (01/13/2024 4:52 PM CDT) Pathologist [facility] Hemoglobin 12.1 11.6 - 15.0 g/dL 01/13/2024 [...] M.S.N. LAB BLOOD AD D-ON Final Result [facility] [address] [place] [address], [facility] [address] [place] [address] * Varicella-Zoster Antibody, IgG, Serum (01/13/2024 4:52 [...] BLOOD ORDERABLES Final Result Performing Organization Address [facility] Co de Phone Number [facility] [address] [place] [address], [facility] in [place] [address] [place] [address] * US OB First Trimester (01/13/2024 4:36 [...] GENERAL ORDERABLES Final Result Performing Organization Address [facility] Co de Phone Number [facility] [address] [place] [address], [facility] in [place] [address] [place] [address] * Chlamydia / Gonorrhoeae Amplified RNA (01/13/2024 [...] GENERAL ORDERABLES Final Result Performing Organization Address City/[facility]/ZIP Co de Phone Number [facility] [address] [place] [address], [place] [facility] [address] [address] * (ABNORMAL) Urinalysis, with Microscopic: Urine, Midstream [...] 8.0 01/13/2024 4:38 PM CDT [facility] [place] 1.025 1.001 - 1.035 01/13/2024 4:38 PM [...] 4:33 PM CDT 01/13/2024 4:35 PM CDT Sarah Conway APRNNKate., M.S.N. LAB URINE OR DERABLES Final Result [facility] [address] [place] [address], [facility] [address] [place] [address] * HPV with Genotyping, PCR, ThinPrep (06/10/2022 2:36 PM DIRECTOR OF PROFESSIONAL SERVICES) [facility] HPV with Genotyping, ThinPrep, PCR Negative Negative 06/11/2022 2:27 PM DIRECTOR OF PROFESSIONAL SERVICES [facility] Comment: Negative for high risk HPV [...] correlated with patient's history, clinical presentation, and GARAGE ATTENDANT cytology report. 06/10/2022 2:36 PM DIRECTOR OF PROFESSIONAL SERVICES 06/11/2022 7:20 AM DIRECTOR OF PROFESSIONAL SERVICES us Dylon Conway APRN.NKate., M.S.N. LAB MICROBIOLOGY - GENERAL ORDERABLES Final Result Performing Organization Address City/[facility]/ZIP Co de Phone Number [facility] [address] [place] [address], [facility] in [place] [address] [place] [address] from Last 3 Months or Most Recently Relevant to Health Maintenance Insurance [place]
--- OUTSIDE RECORDS SUMMARY | 2024-03-29 23:48 | XMS_ITS | Encounter Summary ---
Author Organization [facility] Address [address] [place] [address] Care Team Providers Care Tare Weigher Name Role Phone Jose Alegre MD Primary Care Provider Reason for Referral * Diagnostic Imaging Ultrasound (Routine) - Pending Review Specialty Diagnoses / Procedures Referred By Contac t Referred To Contact Radiology. Diagnoses related condition, antepartum Procedures [facility] US Comprehensive Single August Phone: tel: fax: Referral ID Status Reason Start Date Expiration Date V isits Requested Visits Authorized [id number] Pending Review 03/08/2024 03/08/2025 1 1 PROOFER Reason for Visit * Diagnostic Imaging Ultrasound (Routine) - Pending Review Specialty Diagnoses / Procedures [facility] Referred To Contact Radiology. Diagnoses related condition, antepartum Procedures [facility] Single August Phone: tel: fax: Referral ID Status Reason Start Date Expiration Date V isits Requested Visits Authorized [id number] Pending Review 03/08/2024 03/08/2025 1 1 Encounter Details Date Type Department Care Team (Latest Contact Info) Description 03/16/2024 10:53 AM DAMPPROOFER - 03/16/2024 11:59 PM DAMPPROOFER Hospital Encounter [facility] [place] [address] [place] [address] Brandi Pozo MD [address] [place] [address] related condition, antepartum Discharge Disposition: Home or Self Care Social History Tobacco Use Types Packs/Day Years Used Date Smoking Tobacco: Every Day Smokeless Tobacco: Never Alcohol Use Standard Drinks/Week Comments No 0 (1 standard drink = 0.6 oz pur e alcohol) Adolescent Education Answer Date Record ed Getting School Help Needed Not on file 01/31 Estimated Date of Delivery Comme nts Yes 07/21/2024 Based on Ultraso und Sex and Gender Information Value Date Recorded Sex Assigned at Not on file Legal Sex Female 5:09 AM DAMPPROOFER Gender Identity Not on file Sexual Orientation Not on file documented as of this encounter Medications at Time of Discharge ARIPiprazole (ABILIFY) 5 MG tabletIndications :Major depressive disorder, recurrent episode, moderate (H) Take 1 tablet (5 mg) by mouth daily 30 tablet 03/05/2018 Atorvastatin Calcium (LIPITOR PO) Take 20 mg by mouth daily Esomeprazole Magnesium (NEXIUM PO)Indications:He artburn Take 40 mg by mouth daily folic acid (FOLVITE) 400 MCG tablet Take 1 tablet (400 mcg) by mouth daily 30 tablet 11/13/2014 Multiple Vitamins-Calcium (ONE-A-DAY WOMENS FORMULA) TABS 11/13/2014 sertraline (ZOLOFT) 100 MG tabletIndications :Major depressive disorder, recurrent episode, moderate (H) Take 2 tablets (200 mg) by mouth daily 60 tablet 03/05/2018 documented as of this encounter Plan of Treatment Upcoming Encounters Date Type Department Care Team (Late st Contact Info) Description 05/02/2024 11:45 AM DAMPPROOFER Appointment [facility] [address] [place] [phone] Brandi Pozo MD [address] [place] [address] 05/02/2024 12:15 PM DAMPPROOFER Office Visit [facility] [address] [place] [address] Brandi Pozo MD [address] [place] [address] documented as of this encounter Procedures Procedure Name Priority Date/Time Associated Diagnosis Comments [facility] US COMPREHENSIVE SINGLE Routine 03/16/2024 1:44 PM DAMPPROOFER related condition, antepartum documented in this encounter Results * [facility] Comprehensive Single (03/16/2024 1:44 PM DAMPPROOFER) Anatomical Region Laterality Modality Ultrasound 03/16/2024 11:0 1 AM DAMPPROOFER Impressions 03/16/2024 12:51 PM DAMPPROOFER IMPRESSION ----- 1. Nava at 21w 6d gestational age. 2. No anomalies commonly detected by ultrasound were identified in the detailed anatomic survey within the limits of ultrasound. 3. Growth parameters and estimated weight were consistent with gestational age predicted by assigned LG. 4. The amniotic fluid volume appeared normal. 5. On transvaginal imaging the cervix appeared long and closed. 6. There is a placenta previa. There is a venous valencia noted but no other sonographic features of placenta accreta spectrum. The uteroplacental interface appears well defined. The placenta appears bilobed with normal cord insertion. Narrative 03/16/2024 12:51 PM DAMPPROOFER Comprehensive ----- Pat. Name: ABIMAEL DU Study Date: 03/16/2024 11:01am Pat. NO: [id number] Referring MD: TANYA HA Site: Manager Primary: Yelena Choi RDMS : 1990 Age: 34 ----- INDICATION ----- Complete placenta previa History of cesarea delivery METHOD ----- Transabdominal and transvaginal ultrasound approaches were used. (Transvaginal ultrasound examination was required to adequately complete the exam.). View: Sufficient ----- Nava . Number of fetuses: 1 DATING ----- Date Details Gest. age LG LMP 10/18/2023 Cycle: irregular cycle 21 w + 3 d 07/24/2024 Previous U/S 11/30/2023 GA, GA 6 w + 4 d 21 w + 6 d 07/21/2024 U/S 03/16/2024 based upon AC, BPD, Femur, HC 21 w + 6 d 07/21/2024 Assigned dating based on ultrasound (GA), selected on 03/16/2024 w + 6 d 07/21/2024 GENERAL EVALUATION ----- Cardiac activity present. FHR 149 bpm. movements: present. Presentation: Variable Placenta: Bilobed placenta, posterior/right connected by a thin piece of placental tissue, previa Umbilical cord: 3 vessel cord Amniotic fluid: Amount of AF: normal. MVP 5.5 cm BIOMETRY ----- BPD 52.1 mm 21w 6d Hadlock OFD 67.2 mm 21w 0d Nicolaides HC 189.5 mm 21w 2d Hadlock Cerebellum tr 22.3 mm 21w 1d Nicolaides AC 175.8 mm 22w 3d 63% Hadlock Femur 37.1 mm 21w 6d Hadlock Humerus 37.0 mm 22w 6d Steffanie Weight Calculation: EFW 474 g 55% Hadlock EFW (lb,oz) 1 lb 1 oz EFW by Hadlock ([id number]) Head / Face / Neck Biometry: Exhibit Display Representative 6.6 mm CM 3.8 mm Nasal bone 7.1 mm ANATOMY ----- The following structures appear normal: Head / Neck Cranium. Head size. Head shape. Lateral ventricles. Choroid plexus. Midline falx. Cavum septi pellucidi. Cerebellum. Cisterna magna. Parenchyma. Thalami. Vermis. Neck. Face Lips. Profile. Nose. Maxilla. Mandible. Orbits. Lens. Heart / Thorax 4-chamber view. RVOT view. LVOT view. 3-vessel view. 8-gbeixp-yvdnrbk view. Situs. Aortic arch view. Bicaval view. Ductal arch view. Superior vena cava. Inferior vena cava. Cardiac position. Cardiac size. Cardiac rhythm. Right lung. Left lung. Diaphragm. Abdomen Abdom. wall. Cord insertion. Stomach. Kidneys. Bladder. Liver. Bowel. Genitals. Spine Cervical spine. Thoracic spine. Lumbar spine. Sacral spine. Extremities / Skeleton Arms. Right arm. Right hand. Left arm. Left hand. Legs. Right leg. Right foot. Left leg. Left foot. sex: male. MATERNAL STRUCTURES ----- Cervix Visualized Appearance: Appears Closed Approach - Transvaginal: Cervical length 42.3 mm Right Ovary Visualized Left Ovary Visualized RECOMMENDATION ----- Thank-you for referring your patient for ultrasound assessment. I discussed the findings on today's ultrasound with the patient. I reviewed the limitations of ultrasound both in detecting aneuploidy and structural abnormalities. Ultrasound can routinely detect 80-90% of structural abnormalities. She had low risk cell free DNA for genetic screening this . We reviewed today's ultrasound confirming the previously noted complete placenta previa. We discussed that the majority of placenta previas will resolve prior to delivery. We recommended pelvic rest and avoidance of strenuous activity and vigorous exercise but would not recommend bedrest. We discussed that a repeat ultrasound is recommended at 28 weeks to re-assess placental location. We reviewed that if she has a persistent previa and remains asymptomatic, delivery is recommended between 36-37 weeks. We reviewed that the risk for hemorrhage and need for blood transfusion is greater in the setting of previa. Additionally, there is an associated risk of placenta accreta estimated at 11% given history of one prior delivery. She additionally has a history of two prior D&Cs. We discussed the limitations of ultrasound in ability to diagnose placenta accreta spectrum. We discussed that ultrasound today did not show any classic features suggestive of placenta accreta spectrum, however, we will need to reassess throughout the . Recommend follow up growth/placental assessment at 28 weeks with MFM. Return to primary provider for continued care. If you have questions regarding today's evaluation or if we can be of further service, please contact the [facility]. I spent a total of 20 minutes on the date of this encounter including preparing to see the patient (reviewing medical records/tests), counseling and discussing the plan of care, documenting the visit in the electronic medical record, and communicating with other health managed care manager and/or care coordination. Procedure Note Brandi Pozo MD - 03/16/2024 Comprehensive ----- Pat. Name: ABIMAEL DU Study Date: 03/16/2024 11:01am Pat. NO: [id number] Referring MD: TANYA HA Site: Manager Primary: Yelena Choi RDMS : 1990 Age: 34 ----- INDICATION ----- Complete placenta previa History of cesarea delivery METHOD ----- Transabdominal and transvaginal ultrasound approaches were used.(Transvaginal ultrasound examination was required to adequately completethe exam.). View: Sufficient ----- Nava . Number of fetuses: 1 DATING ----- DateDetailsGest. age LG LMP 4Cycle: irregular cycle21 w + 3 d 07/24/2024 Previous U/S 11/30/2023 GA, GA6 w + 4 d21 w + 6 d 07/21/2024 U/S 03/16/2024ased upon AC, BPD, Femur, HC21 w + 6 d 07/21/2024 Assigned dating based on ultrasound (GA), selected on03/16/2024 21w + 6 d 07/21/2024 GENERAL EVALUATION ----- Cardiac activity present. FHR 149 bpm. movements: present.Presentation: Variable Placenta: Bilobed placenta, posterior/right connected by a thin piece ofplacental tissue, previa Umbilical cord: 3 vessel cord Amniotic fluid: Amount of AF: normal. MVP 5.5 cm BIOMETRY ----- BPD 52.1mm 21w 6dHadlock OFD 67.2mm 21w 0dNicolaides HC 189.5mm 21w 2dHadlock Cerebellum tr 22.3mm 21w 1dNicolaides AC 175.8mm 22w 3d 63%Hadlock Femur 37.1mm 21w 6dHadlock Humerus 37.0mm 22w 6dJeanty Weight Calculation: EFW 474g 55%Hadlock EFW (lb,oz) 1 lb 1oz EFW by Rickylock([id number]) Head / Face / Neck Biometry: Exhibit Display Representative 6.6mm CM 3.8mm Nasal bone 7.1mm ANATOMY ----- The following structures appear normal: Head / Neck Cranium. Head size. Head shape.Lateral ventricles. Choroid plexus. Midline falx. Cavum septi pellucidi.Cerebellum. Cisterna magna. Parenchyma. Thalami. Vermis. Neck. Face Lips. Profile. Nose. Maxilla.Mandible. Orbits. Lens. Heart / Thorax 4-chamber view. RVOT view. LVOT view.3-vessel view. 5-idphmx-adbkgpv view. Situs. Aortic arch view. Bicavalview. Ductal arch view. Superior vena cava. Inferior vena cava.Cardiac position. Cardiac size. Cardiac rhythm. Right lung. Left lung.Diaphragm. Abdomen Abdom. wall. Cord insertion. Stomach.Kidneys. Bladder. Liver. Bowel. Genitals. Spine Cervical spine. Thoracic spine.Lumbar spine. Sacral spine. Extremities / Skeleton Arms. Right arm. Right hand. Left arm.Left hand. Legs. Right leg. Right foot. Left leg. Left foot. sex: male. MATERNAL STRUCTURES ----- Cervix Visualized Appearance: Appears Closed Approach - Transvaginal:Cervical length 42.3 mm Right Ovary Visualized Left Ovary Visualized RECOMMENDATION ----- Thank-you for referring your patient for ultrasound assessment. I discussed the findings on today's ultrasound with the patient. Ireviewed the limitations of ultrasound both in detecting aneuploidy andstructural abnormalities. Ultrasound can routinely detect 80-90% of structural abnormalities. She had low riskcell free DNA for genetic screening this . We reviewed today's ultrasound confirming the previously noted completeplacenta previa. We discussed that the majority of placenta previas willresolve prior to delivery. We recommended pelvic rest and avoidance of strenuous activity andvigorous exercise but would not recommend bedrest. We discussed that arepeat ultrasound is recommended at 28 weeks to re-assess placental location. We reviewed thatif she has a persistent previa and remains asymptomatic, delivery isrecommended between 36-37 weeks. We reviewed that the risk for hemorrhage and need for bloodtransfusion is greater in the setting of previa. Additionally, there is anassociated risk of placenta accreta estimated at 11% given history of one prior delivery. Sheadditionally has a history of two prior D&Cs. We discussed the limitationsof ultrasound in ability to diagnose placenta accreta spectrum. We discussed that ultrasound todaydid not show any classic features suggestive of placenta accreta spectrum,however, we will need to reassess throughout the . Recommend follow up growth/placental assessment at 28 weeks with MFM. Return to primary provider for continued care. If you have questions regarding today's evaluation or if we can be offurther service, please contact the [facility]. I spent a total of 20 minutes on the date of this encounter includingpreparing to see the patient (reviewing medical records/tests), counselingand discussing the plan of care, documenting the visit in the electronic medical record, andcommunicating with other health managed care manager and/or carecoordination. IMPRESSION ----- 1. Nava at 21w 6d gestational age. 2. No anomalies commonly detected by ultrasound were identified inthe detailed anatomic survey within the limits of prenatalultrasound. 3. Growth parameters and estimated weight were consistent withgestational age predicted by assigned LG. 4. The amniotic fluid volume appeared normal. 5. On transvaginal imaging the cervix appeared long and closed. 6. There is a placenta previa. There is a venous valencia noted but no othersonographic features of placenta accreta spectrum. The uteroplacentalinterface appears well defined. The placenta appears bilobed with normal cord insertion. [facility] US ORDERABLES Edited Res ult - Final documented in this encounter Visit Diagnoses Diagnosis related condition, antepartum documented in this encounter Care Teams Tare Weigher Relationship Specialty Start Date End Date Jose Alegre MD PCP - General Family Practice 03/02/18 documented as of this encounter
--- OUTSIDE RECORDS SUMMARY | 2024-03-29 23:48 | XMS_ITS | Encounter Summary ---
Author Organization [facility] Address [address] [place] [address] Care Team Providers Care Telephone Sex Worker Name Role Phone Jose Alegre MD Primary Care Provider [phone] Reason for Visit * Reason Onset Date Comments MH/CD Inpatient 03/02/2018 Encounter Details Date Type Department Care Team ([facility] Contact Info) Description 03/02/2018 Telephone [facility] Behavioral Health Intake [address] [place] [phone] Generic, Behavioral Intake, MH/CD Inpatient Social History Tobacco Use Types Packs/Day Years Used Date Smoking Tobacco: Every Day Smokeless Tobacco: Never Alcohol Use Standard Drinks/Week Comments No 0 (1 standard drink = 0.6 oz pur e alcohol) Comments No Sex and Gender Information Value Date Recorded Sex Assigned at Not on file Legal Sex Female 5:09 AM PEOPLESOFT FINANCIAL DEVELOPER Gender Identity Not on file Sexual Orientation Not on file documented as of this encounter Miscellaneous Notes * Telephone Encounter - Marcela Huffman - 03/02/2018 9:08 PM CDT S: pt is a 27 yr old fem in [facility] ED for SI w/ plan to [...] documented in this encounter Plan of Treatment Upcoming Encounters Date Type Department Care Team (Late st Contact Info) Description 05/02/2024 11:45 AM PEOPLESOFT FINANCIAL DEVELOPER Appointment [facility] Maternal Medicine [facility] [address] [place] [phone] Brandi Pozo MD [address] [place], [place] [id number] 05/02/2024 12:15 PM PEOPLESOFT FINANCIAL DEVELOPER Office Visit [facility] [address] [place] [phone] Brandi Pozo MD [address] [place], [place] [phone] documented as of this encounter Visit Diagnoses Not on filedocumented in this encounter Care Teams Telephone Sex Worker Relationship Specialty Start Date End Date Jose Alegre MD PCP - General Family Practice 03/02/18 documented as of this encounter
--- OUTSIDE RECORDS SUMMARY | 2024-03-29 23:48 | XMS_ITS | Encounter Summary ---
Author Organization [facility] Address [address] [place] [address] Care Team Providers Care Well Treatment Offsider Name Role Phone Jose Alegre MD Primary Care Provider [phone] Encounter Details Date Type Department Care Team (Late st Contact Info) Description 03/08/2024 Medical Correspondence [facility] Health Information Management [address] [facility] [place] [address] Scan, Non-Provider Social History Tobacco Use Types Packs/Day Years [...] on file Legal Sex Female 5:09 AM ARCHITECTURAL COATING FINISHER Gender Identity Not on file Sexual Orientation Not on file documented as of this encounter Plan of Treatment Upcoming Encounters Date Type Department Care Team (Late st Contact Info) Description 05/02/2024 11:45 AM ARCHITECTURAL COATING FINISHER Appointment [facility] Maternal Medicine [facility] [address] [place] [phone] Brandi Pozo MD [address] [facility] [address] [place], [place] [phone] 05/02/2024 12:15 PM ARCHITECTURAL COATING FINISHER Office Visit [facility] Maternal Medicine [facility] [address] [facility] [address] [place] [phone] Brandi Pozo MD [address] [place], [place] [address] [facility] [address] [place] [address] documented as of this encounter Visit Diagnoses Not on filedocumented in this encounter Care Teams Well Treatment Offsider Relationship Specialty Start Date End Date Jose Alegre MD PCP - General Family Practice 03/02/18 documented as of this encounter
--- OUTSIDE RECORDS SUMMARY | 2024-03-29 23:48 | XMS_ITS | Encounter Summary ---
Author Organization [facility] Address [address] [place] [address] Care Team Providers Care Director Of Product Marketing Name Role Phone Jose Alegre MD Primary Care Provider [phone] Reason for Referral * Diagnostic Imaging Ultrasound (Routine) - Pending Review Specialty Diagnoses / Procedures Referred By Isai t Referred To Contact Radiology. Diagnoses related condition, antepartum Procedures [facility] US Comprehensive Single August Phone: tel: fax: Referral ID Status Reason Start Date Expiration Date V isits Requested Visits Authorized [id number] Pending Review 03/08/2024 03/08/2025 1 1 INUITY COORDINATOR * Consultation (Routine: Next available opening) - Pending Review Specialty Diagnoses / Procedures [facility] Referred To Contact Diagnoses related condition, antepartum August Phone: tel: fax: [facility] [place] [address] [place] [address] Phone: tel: fax: Referral ID Status Reason Start Date Expiration Date V isits Requested Visits Authorized [id number] Pending Review 03/08/2024 03/08/2025 1 1 Question Answer Preferred Location: [facility] [place] 07/24/2024 Ultrasound Comprehensive US (>than 18 weeks [place]) US PROC Echocardiogram (enter Indication in Comments), NONE MFM Issue OTHER (enter details in Comments) - complete placenta previa NOS or w/o hemorrhage MFM MD Consultation (unrelated to Ultrasound findings): No Inflammatory Bowel Disease Clinic: Joint MFM and GI Consultation: No Chronic Kidney Disease: Joint MFM and Nephrology Consultation No Cardio-Obstetrics: Joint MFM and Cardiology Consultation No Genetic Counseling Consultation: No fax [facility] August Robert [phone] Comments complete placenta previa NOS or w/o hemorrhage Pt has appt sched 03/23 at [place] w/ mfm provider, wanted to be seen sooner at INUITY COORDINATOR Encounter Details Date Type Department Care Team (Latest Contact Info) Description 03/08/[address] [facility] Medicine [facility] [address] [facility] [address] [place] [address] RobertAugust [address] [place] [address] related condition, antepartum (Primary Dx) Social History Tobacco Use Types [...] on file Legal Sex Female 5:09 AM CONTINUITY COORDINATOR Gender Identity Not on file Sexual Orientation Not on file documented as of this encounter Plan of Treatment Upcoming Encounters Date Type Department Care Team (Late st Contact Info) Description 05/02/2024 11:45 AM CONTINUITY COORDINATOR Appointment [facility] [address] [place] [address] Brandi Pozo MD [address] [address] 05/02/2024 12:15 PM CONTINUITY COORDINATOR Office Visit [facility] [place] [address] [facility] [address] [place] [address] Brandi Pozo MD [address] [facility] [address] [place] [address] Scheduled Referrals Name Type Priority Associated Diagnoses Orde r Schedule [facility]tr Referral - Referral Routine: Next available opening related condition, antepartum Expected: 03/08/2024 (Approximate), Expires: 09/04/2024 documented as of this encounter Results * [facility] US Comprehensive Single (03/16/2024 1:44 PM CONTINUITY COORDINATOR) Anatomical Region Laterality Modality Ultrasound 03/16/2024 11:0 1 AM CONTINUITY COORDINATOR Impressions 03/16/2024 12:51 PM CONTINUITY COORDINATOR IMPRESSION ----- 1. Nava at 21w 6d [...] normal cord insertion. Narrative 03/16/2024 12:51 PM CONTINUITY COORDINATOR Comprehensive ----- Pat. Name: ABIMAEL DU Study Date: 03/16/2024 11:01am Pat. NO: [id number] Referring MD: TANYA HA Site: Senior National Account Manager: Yelena Choi RDMS : 1990 Age: 34 [...] 1 lb 1 oz EFW by [employer] ([id number]) Head / Face / Neck Biometry: [employer] 6.6 mm CM 3.8 mm Nasal bone 7.1 mm ANATOMY ----- The following structures appear normal: Head / Neck Cranium. Head size. Head shape. Lateral ventricles. Choroid plexus. Midline falx. Cavum septi pellucidi. Cerebellum. Cisterna magna. Parenchyma. Thalami. Vermis. Neck. Face Lips. Profile. Nose. Maxilla. Mandible. Orbits. Lens. Heart / Thorax 4-chamber view. RVOT view. LVOT view. 3-vessel view. 7-wqagxy-scfdbwa view. Situs. Aortic arch view. Bicaval view. [...] medical record, and communicating with other health career technical supervisor and/or care coordination. Procedure Note Brandi Pozo MD - 03/16/2024 Comprehensive ----- Pat. Name: ABIMAEL DU Study Date: 03/16/2024 11:01am Pat. NO: [id number] Referring MD: TANYA HA Site: Senior National Account Manager: Yelena Choi RDMS : 1990 Age: 34 [...] d21 w + 6 d 07/21/2024 U/S 4based upon AC, BPD, Femur, HC21 w + [...] EFW (lb,oz) 1 lb 1oz EFW by Rickylock([id number]) Head / Face / Neck Biometry: [employer] 6.6mm CM 3.8mm Nasal bone 7.1mm ANATOMY ----- The following structures appear normal: Head / Neck Cranium. Head size. Head shape.Lateral ventricles. Choroid plexus. Midline falx. Cavum septi pellucidi.Cerebellum. Cisterna magna. Parenchyma. Thalami. Vermis. Neck. Face Lips. Profile. Nose. Maxilla.Mandible. Orbits. Lens. Heart / Thorax 4-chamber view. RVOT view. LVOT view.3-vessel view. 8-znrdbg-jnaquvk view. Situs. Aortic arch view. Bicavalview. Ductal [...] electronic medical record, andcommunicating with other health career technical supervisor and/or carecoordination. IMPRESSION ----- 1. Nava at [...] appears bilobed with normal cord insertion. August [facility] US ORDERABLES Edited Res ult - Final documented in this encounter Visit Diagnoses Diagnosis related condition, antepartum- Primary related condition, antepartum documented in this encounter Care Teams Director Of Product Marketing Relationship Specialty Start Date End Date Jose Alegre MD PCP - General Family Practice 03/02/18 documented as of this encounter
--- OUTSIDE RECORDS SUMMARY | 2024-03-29 23:48 | XMS_ITS | Encounter Summary ---
Author Organization [facility] Address [address] [place] [address] Care Team Providers Care Top Distribution Executive Name Role Phone Jose Alegre MD Primary Care Provider [phone] Reason for Referral * Diagnostic Imaging Ultrasound (Routine) - Pending Review Specialty Diagnoses / Procedures Referred By Contac t Referred To Contact Radiology. Diagnoses Placenta previa Procedures [facility] US Comprehensive Single F/U Brandi Pozo MD [address] [place] [address] Phone: tel: fax: Referral ID Status Reason Start Date Expiration Date V isits Requested Visits Authorized [id number] Pending Review 03/16/2024 03/16/2025 1 1 TECHNICIAN Reason for Visit * Reason Comments Ultrasound L2-complete previa Encounter Details Date Type Department Care Team (Late st Contact Info) Description 03/16/2024 11:30 AM SEED TECHNICIAN Office Visit [facility] [place] [address] [place] [address] Brandi Pozo MD [address] [place] [address] Placenta previa in second trimester (Primary Dx) Social History Tobacco Use Types [...] on file Legal Sex Female 5:09 AM SEED TECHNICIAN Gender Identity Not on file Sexual Orientation Not on file documented as of this encounter Progress Notes * Brandi Pozo MD - 03/16/2024 11:30 AM CST Please see Imaging tab under Chart Review for details of today's visit. Brandi Pozo TECHNICIAN documented in this encounter Nursing Notes * Karen Cid, RN - 03/16/2024 11:30 AM CST Patient presents to [facility] for L2 at 21w3d due to complete previa. Positive movement. Denies LOF, vaginal bleeding or cramping/contractions. SBAR given to [facility] , see their note in Epic. TECHNICIAN documented in this encounter Plan of Treatment Upcoming Encounters Date Type Department Care Team (Late st Contact Info) Description 05/02/2024 11:45 AM SEED TECHNICIAN Appointment [facility] [place] [address] [place] [phone] Brandi Pozo MD [address] [place], [place] [address] 05/02/2024 12:15 PM SEED TECHNICIAN Office Visit [facility] [place] [address] [facility] [address] [place] [phone] Brandi Pozo MD [address] [place], [place] [address] Scheduled Orders Name Type Priority Associated Diagnoses Orde r Schedule [facility] US Comprehensive Single F/U Imaging Routine Placenta previa in second trimester Expected: 04/28/2024 (Approximate), Expires: 03/16/2025 documented as of this encounter Visit Diagnoses Diagnosis Placenta previa in second trimester- Primary documented in this encounter Care Teams Top Distribution Executive Relationship Specialty Start Date End Date Jose Alegre MD PCP - General Family Practice 03/02/18 documented as of this encounter
--- OUTSIDE RECORDS SUMMARY | 2024-03-29 23:48 | XMS_ITS | Encounter Summary ---
Author Organization [facility] Address [address] [place] [address] Care Team Providers Care Renewals Representative Name Role Phone Unavailable Primary Care Provider Unavailabl e Reason for Visit * Reason Comments Initial Visit 12 07/08 * Outpatient (Routine) - Closed Specialty Diagnoses / Procedures Referred By Contac t Referred To Contact Obstetrics and Gynecology Diagnoses Examination Normal First Trimester (HCC) Elisa Byrne APRN, C.N.P., [place] [address] Phone: tel: fax: [facility] Region Referral ID Status Reason Start Date Expiration Date Visits Re quested Visits Authorized [id number] Closed 12/16/2023 06/16/2025 1 1 Encounter Details Date Type Department Care Team (Latest Contact Info) Description 01/13/2024 3:00 PM CDT Initial Department of Obstetrics and Gynecology in [place], [place] [address] [place] [address] Elisa Byrne APRN, C.N.P., [place] [address] GA: 12w3d Discharge Disposition: Home or Self Care Social History Tobacco Use Types Packs/Day Years Used Date Smoking Tobacco: Former Cigarettes Passive Smoke Exposure: Past Smokeless Tobacco: Never Tobacco Cessation:Counseling Given: Not Answered Alcohol Use Standard Drinks/Week Comments No 0 (1 standard drink = 0.6 oz pur e alcohol) [facility] Utilities Answer Date Recorded In the past [...] often do you attend chur ch or amish services? More than 4 times per year 02/23/2020 Do you belong to any clubs o r organizations such as mormon groups, unions, fraternal or athletic groups, or [...] Answer Date Recorded PHQ-2 Score 0 01/13/2024 [facility] [place] of Occupat ional Health - Occupational Stress [...] your living situation today? I have a [facility] to live 12/09/2023 Education Answer Date [...] discharge. GCC done. - Bimanual exam: deferred Actuarial Associate for pelvic exam or qualifying procedure: Chloé [...] UP PLAN: She is transferring care to [facility] and has appointment scheduled for early February [...] BLOOD BA NK TEST ORDERABLES Final Result [facility] [address] [place] [address], [facility] NPRG [facility] [address] [place] [address] * Panorama Screen - Sent Out Lab (01/13/2024 4:52 PM CDT) Panorama Screen SEE COMMENT 01/27/2024 10:45 AM CDT [facility] Comment: For final report, select Lab-Send Out Lab Results hyperlink below. Blood (Blood, Venous) 01/13/2024 4:52 PM CDT 01/15/2024 7:06 AM CDT Narrative [employer] - 01/27/2024 10:45 AM CDT Specimen Information: Specimen ID: [id number] Specimen Type: Blood Specimen Collection Start Date: 01/13/2024 4:52 PM Specimen Received Date: 01/15/2024 7:06 AM Specimen ID: [id number] Specimen Type: Blood Specimen Collection Start Date: 01/13/2024 4:53 PM Specimen Received Date: 01/15/2024 7:06 AM Elisa Byrne APRN, C.N.P., M.S.N. LAB GENETIC TESTING Final Result [employer] [address] [facility] [address] [place] [address], [facility] KEVIN [employer] [address] [facility] [address] [place] [address] * Varicella-Zoster Antibody, IgG, Serum (01/13/2024 4:52 PM CDT) Varicella-Zoster Ab, IgG, S Positive 01/13/2024 8:41 PM CDT [facility] Comment: Results suggest response to immunization or prior exposure to the virus. ----REFERENCE VALUE---- Vaccinated: Positive (>=1.1 AI) Unvaccinated: Negative (<=0.8 AI) Varicella IgG Antibody Index 1.3 01/13/2024 8:41 PM CDT [facility] Blood (Blood, Venous) 01/13/2024 4:52 PM CDT 01/13/2024 7:52 PM CDT Dylon Griffiths APRN.N.Jason., M.S.N. LAB MICROBIO LOGY - BLOOD ORDERABLES Final Result Performing Organization Address City/[facility]/ZIP Co de Phone Number [facility] [address] [place] [address], [facility] in [address] [address] * HIV-1/-2 Ag and Ab Scrn, Plasma [...] BLOOD ORDERABLES Final Result Performing Organization Address City/[facility]/ZIP Co de Phone Number [facility] [address] [place] [address], [place] [address], [facility] in [place] [address] * Hepatitis C Virus Antibody Screen (01/13/2024 4:52 PM CDT) HCV Ab Scrn , S Negative Negative 01/15/2024 11:37 AM CDT [facility] Comment: Consumption of high-dose biotin supplement within 12 hours of blood collection for this test can cause false-negative results. Blood (Blood, Venous) 01/13/2024 4:52 PM CDT 01/15/2024 7:17 AM CDT Elisa Byrne APRN, C.N.P., M.S.N. LAB MICROBIO LOGY - BLOOD ORDERABLES Final Result [facility] [address] [place] [address] [facility] [address] [place] [address] * HBs Antibody , Serum (01/13/2024 4:52 [...] MICROBIO LOGY - BLOOD ORDERABLES Final Result [facility] [address] [place] [address], [facility] [place] [address] [place] [address] * (ABNORMAL) CBC with Differential, Blood (01/13/2024 [...] M.S.N. LAB BLOOD AD D-ON Final Result [facility] [address] [place] [address], [facility] NPR[facility] [address] [place] [address] * Rubella Antibodies, IgG (01/13/2024 4:52 PM [...] BLOOD ORDERABLES Final Result Performing Organization Address City/[facility]/ZIP Co de Phone Number [facility] [address] [place] [address], [facility] [place] [address] [place] [address] * US OB First Trimester (01/13/2024 4:36 [...] Fetus in variable positions during exam today. Elisa Byrne APRN, C.N.P., M.S.N. IMG OB US [place] OCEDURES Final Result * Bacterial Culture, Aerobic + Susceptibility, Urine (01/13/2024 4:33 PM CDT) Urine Culture Urogenital microbiota, susceptibilities not performed per laboratory criteria. 01/14/2024 3:41 PM CDT [facility] Urine (Urine, Midstream) 01/13/2024 4:33 PM CDT 01/13/2024 10:19 PM CDT Comment:Specimen Source Site : Urine Elisa Byrne APRN, C.N.P., M.S.N. LAB MICROBIOLOGY - GENERAL ORDERABLES Final Result [facility] [address] [place] [address], [facility] [place] [address] * (ABNORMAL) Urinalysis, with Microscopic: Urine, Midstream [...] 8.0 01/13/2024 4:38 PM CDT [facility] [place] 1.025 1.001 - 1.035 01/13/2024 4:38 PM [...] M.S.N. LAB URINE OR DERABLES Final Result [facility] [address] [place] [address], [facility] [address] [place] [address] * Chlamydia / Gonorrhoeae Amplified RNA (01/13/2024 4:33 PM CDT) Source Swab, Vagina 01/14/2024 8:07 AM CDT [facility] Chlamydia trachomatis amplified RNA Negative Negative 01/14/2024 8:07 AM CDT [facility] Source Swab, Vagina 01/14/2024 8:07 AM CDT [facility] Neisseria gonorrhoeae amplified RNA Negative Negative 01/14/2024 8:07 AM CDT [facility] Swab (Vagina) 01/13/2024 4:3 3 PM CDT 01/13/2024 10:19 PM CDT us Dylon Conway APRN.N.Jason., M.S.N. LAB MICROBIOLOGY - GENERAL ORDERABLES Final Result [facility] [place] [address], [facility] [address] [place] [address] documented in this encounter Visit Diagnoses Diagnosis Examination Normal First Trimester (HCC) Examination Normal First Trimester (HCC) documented in this encounter Additional Health Concerns Assessment Noted Time PHQ-9 Depression Total Score: 10 024 4:33 PM CDT documented as of this encounter
--- OUTSIDE RECORDS SUMMARY | 2024-03-29 23:48 | XMS_ITS | Encounter Summary ---
Author Organization [facility] Address [address] [place] [address] Care Team Providers Care Database Support Name Role Phone Jose Alegre MD Primary Care Provider [phone] Reason for Visit * Reason Comments Ultrasound L2-complete placenta previa NOS without hemorrhage Encounter Details Date Type Department Care Team (Late st Contact Info) Description 03/09/2024 PRE VISIT [facility] [address] [place] [address] Karen Cid, RN Ultrasound (L2-complete placenta previa NOS without hemorrhage) Social History Tobacco Use Types Packs/Day Years [...] on file Legal Sex Female 5:09 AM PARKING LINE PAINTER Gender Identity Not on file Sexual Orientation Not on file documented as of this encounter Plan of Treatment Upcoming Encounters Date Type Department Care Team (Late st Contact Info) Description 05/02/2024 11:45 AM PARKING LINE PAINTER Appointment [facility] [address] [place] [address] Brandi Pozo MD [address] [place] [address] 05/02/2024 12:15 PM PARKING LINE PAINTER Office Visit [facility] [address] [facility] [address] [place] [address] Brandi Pozo MD [address] [facility] [address] [place] [address] documented as of this encounter Visit Diagnoses Not on filedocumented in this encounter Care Teams Database Support Relationship Specialty Start Date End Date Jose Alegre MD PCP - General Family Practice 03/02/18 documented as of this encounter
--- OUTSIDE RECORDS SUMMARY | 2024-03-29 23:48 | XMS_ITS | Referral Summary ---
Author Organization [place] Address [address] [place] [address] Care Team Providers Care Life Trainer Name Role Phone Jose Alegre MD Primary Care Provider [phone] Encounters Date Type Department Care Team Description 03/16/2024 Travel 03/16/2024 11:30 AM CORPORATE CLAIMS EXAMINER Office Visit [facility] Maternal Medicine [place] [address] [place] [phone] Brandi Pozo MD Placenta previa in second trimester (Primary Dx) 03/16/2024 10:53 AM CORPORATE CLAIMS EXAMINER - 03/16/2024 11:59 PM CORPORATE CLAIMS EXAMINER Hospital Encounter [facility] Medicine [place] [address] [place] [address] Brandi Pozo MD related condition, antepartum Discharge Disposition: Home or Self Care 03/09/2024 PRE VISIT [facility] Medicine [facility] [address] [place] [address] Karen Cid RN Ultrasound (L2-complete placenta previa NOS without hemorrhage) 03/08/2024 Medical Correspondence [facility] Information Management [address] [place] [address] [address] [place] [address] Scan, Non-Provider 03/08/2024 Transcribe Orders [facility] Maternal Medicine [facility] [address] [place] [address] Shruthi Ha related condition, antepartum (Primary Dx) 03/07/2024 Medical Correspondence [facility] Information Management [address] [place] [address] Scan, Non-Provider from Last 3 Months Allergies Active Allergy [...] Noted Date Diagnosed Date Suicidal intent 03/03/2018 Estimated Date of Delivery Comme nts Yes 07/21/2024 Based on Ultraso und Social History Tobacco Use Types Packs/Day Years [...] on file Legal Sex Female 5:09 AM CORPORATE CLAIMS EXAMINER Gender Identity Not on file Sexual Orientation Not on file Last Filed Vital Signs Vital Sign Reading Time Taken Comments Blood Pressure 127/91 06/22/2023 1:49 PM CORPORATE CLAIMS EXAMINER Pulse 87 06/22/2023 1:49 PM CORPORATE CLAIMS EXAMINER Temperature 36.6 C (97.9 F) 06/22/2023 1:49 PM CORPORATE CLAIMS EXAMINER Respiratory Rate 16 06/22/2023 2:04 PM CORPORATE CLAIMS EXAMINER Oxygen Saturation 98% 06/22/2023 2:22 PM CORPORATE CLAIMS EXAMINER Inhaled Oxygen Concentration - - Weight 79.6 kg (175 lb 7.8 oz) 06/22/2023 10:31 AM CORPORATE CLAIMS EXAMINER Height 167.6 cm (5' 6) 06/22/2023 10:29 AM CORPORATE CLAIMS EXAMINER Body Mass Index 28.32 06/22/2023 10:29 AM CORPORATE CLAIMS EXAMINER Plan of Treatment Upcoming Encounters Date Type Department Care Team (Late st Contact Info) Description 05/02/2024 11:45 AM CORPORATE CLAIMS EXAMINER Appointment [facility] Medicine [facility] [address] [place] [address] Brandi Pozo MD [address] [place] [address] 05/02/2024 12:15 PM CORPORATE CLAIMS EXAMINER Office Visit [facility] Medicine [place] [address] [place] [address] Brandi Pozo MD [address] [place] [address] Procedures Procedure Name Priority Date/Time Associated Diagnosis Comments [facility] US COMPREHENSIVE SINGLE Routine 03/16/2024 1:44 PM CORPORATE CLAIMS EXAMINER related condition, antepartum from Last 3 Months Results * [facility] US Comprehensive Single (03/16/2024 1:44 PM CORPORATE CLAIMS EXAMINER) Anatomical Region Laterality Modality Ultrasound 03/16/2024 11:0 1 AM CORPORATE CLAIMS EXAMINER Impressions 03/16/2024 12:51 PM CORPORATE CLAIMS EXAMINER IMPRESSION ----- 1. Nava at 21w 6d [...] normal cord insertion. Narrative 03/16/2024 12:51 PM CORPORATE CLAIMS EXAMINER Comprehensive ----- Pat. Name: ABIMAEL DU Study Date: 03/16/2024 11:01am Pat. NO: [id number] Referring MD: SHRUTHI HA Site: Graduate Rn: Yelena Choi RDMS : 1990 Age: 34 [...] based on ultrasound (GA), selected on 03/16/2024 21 w + 6 d 07/21/2024 GENERAL EVALUATION [...] 1 lb 1 oz EFW by Hadlock ([id number]) Head / Face / Neck Biometry: Activities Attendant 6.6 mm CM 3.8 mm Nasal bone 7.1 mm ANATOMY ----- The following structures appear normal: Head / Neck Cranium. Head size. Head shape. Lateral ventricles. Choroid plexus. Midline falx. Cavum septi pellucidi. Cerebellum. Cisterna magna. Parenchyma. Thalami. Vermis. Neck. Face Lips. Profile. Nose. Maxilla. Mandible. Orbits. Lens. Heart / Thorax 4-chamber view. RVOT view. LVOT view. 3-vessel view. 3-nlwlth-oilabtv view. Situs. Aortic arch view. Bicaval view. [...] medical record, and communicating with other health nursing care attendant and/or care coordination. Procedure Note Brandi Pozo MD - 03/16/2024 Comprehensive ----- Pat. Name: MANDORIZWANAABIMAEL FOOTE Study Date: 03/16/2024 11:01am Pat. NO: [id number] Referring MD: SHRUTHI HA Site: Graduate Rn: Yelena ChoiLARRY : 1990 Age: 34 ----- INDICATION ----- [...] d 07/21/2024 Assigned dating based on ultrasound (), selected on03/16/2024 21w + 6 d 07/21/2024 [...] EFW (lb,oz) 1 lb 1oz EFW by Hadlock([id number]) Head / Face / Neck Biometry: Activities Attendant 6.6mm CM 3.8mm Nasal bone 7.1mm ANATOMY ----- The following structures appear normal: Head / Neck Cranium. Head size. Head shape.Lateral ventricles. Choroid plexus. Midline falx. Cavum septi pellucidi.Cerebellum. Cisterna magna. Parenchyma. Thalami. Vermis. Neck. Face Lips. Profile. Nose. Maxilla.Mandible. Orbits. Lens. Heart / Thorax 4-chamber view. RVOT view. LVOT view.3-vessel view. 6-lvswwp-ffjlfmj view. Situs. Aortic arch view. Bicavalview. Ductal [...] electronic medical record, andcommunicating with other health nursing care attendant and/or carecoordination. IMPRESSION ----- 1. Nava at [...] appears bilobed with normal cord insertion. [facility] Edited Res ult - Final from Last 3 Months Insurance [place]ICAID [place] MEDICAID MD Advance Directives For more information, please contact: [phone] * Full Code (Latest Code Status on File) Date Activated Date Inactivated Comments 03/03/2018 3:07 AM 03/04/2018 9:08 PM Question Answer Comments Code status determined by: Unable to det ermine; FULL CODE until documents or legal decision maker available Care Teams Life Trainer Relationship Specialty Start Date End Date Jose Alegre MD PCP - General Family Practice 03/02/18
--- OUTSIDE RECORDS SUMMARY | 2024-03-29 23:48 | XMS_ITS | Clinical Summary ---
[facility] Address [address] [place] [address] Care Team Providers Care Table And Desk Finisher Name Role Phone Found, No Pcp MD Primary Care Provider Unavailab le Source Comments You are receiving this document as you are listed as the primary care provider,follow-up provider, or the patient has been referred to you for consultation.This is in compliance with the Medicare and[employer] Health[employer] EHR Incentive Program,which states Providers who transition their patient to another setting of careor provider of care or refers their patient to another provider of care shouldprovide summary care record for each transition of care or referral. Unique Property Allergies Active Allergy Reactions Criticality Noted Date [...] 07/14/2006 Overview (12/24/2016): LW Modifier: dx at [facility]-genetics c/s pending LW Onset: ; Connective [...] Comments Blood Pressure 138/91 03/25/2022 2:21 PM RUBBER TIRE AND TUBES SUPERVISOR Pulse 96 03/25/2022 2:21 PM RUBBER TIRE AND TUBES SUPERVISOR Temperature 36.9 C (98.4 F) 03/25/2022 2:21 PM RUBBER TIRE AND TUBES SUPERVISOR Respiratory Rate 14 03/25/2022 2:21 PM RUBBER TIRE AND TUBES SUPERVISOR Oxygen Saturation 97% 03/25/2022 2:21 PM RUBBER TIRE AND TUBES SUPERVISOR Inhaled Oxygen Concentration - - Weight 60.8 [...] age to complete this topic Care Teams Table And Desk Finisher Relationship Specialty Start Date End Date Found, No Pcp, [address] [address] PCP - General 07/10/15
--- OUTSIDE RECORDS SUMMARY | 2024-03-29 23:48 | XMS_ITS | Clinical Summary ---
Author Organization [facility] Address [place], [place] [address] Care Team Providers Care Type Copyist Name Role Phone Willem Alegre MD Primary Care Provider [phone] Allergies Active Allergy Reactions Criticality Noted Date [...] 98 10/07/2016 9:47 PM CDT Temperature 36.6 C (97.8 F) 10/07/2016 9:47 PM CDT Respiratory Rate 18 10/08/2016 12:50 AM CDT [...] Procedure Name Priority Date/Time Associated Diagnosis Comments PRODUCTION SUPERINTENDENT HYDRO THIN PREP PAP SCREEN IMAGED Routine 12/07/2018 1:35 PM CDT from Last 3 Months or Most Recently Relevant to Health Maintenance Results * (ABNORMAL) PRODUCTION SUPERINTENDENT HYDRO THIN PREP PAP SCREEN IMAGED (12/07/2018 1:35 PM CDT) Case Report Gynecologic Cytology Report Case: [id number] Authorizing Provider: Willem Alegre MD Collected: 12/07/2018 1335 Ordering Location: [facility] Received: 12/09/2018 1138 First Screen: Samantha Viera Pathologist: Jeff Ayala Jr., MD Specimen: PRODUCTION SUPERINTENDENT HYDRO ThinPrep Vial Screening, Cervical/Vagina l 12/20/2018 1:47 PM CDT [facility] [employer] [facility] INTERPRETATION/ RESULT ATYPICAL SQUAMOUS CELLS OF UNDETERMINED SIGNIFICANCE (ASCUS)(A) (none) 12/20/2018 1:47 PM CDT [facility] IMEN ADEQUACY Satisfactory for evaluation Endocervical component present 12/20/2018 1:47 PM CDT [facility] HPV REQUEST HPV if ASCUS 12/20/2018 1:47 PM CDT [facility] Date of LMP 11/08/2018 12/20/2018 1:47 PM CDT [facility] Last Pap Date 12/20/2018 1:47 PM CDT [facility] Comment:2014 Automated Review Successful 12/20/2018 1:47 PM CDT [facility] Comment:Specimen processed s uccessfully by automated typer device, ThinPrep Imaging System, [employer] ANCILLARY TESTING PRODUCTION SUPERINTENDENT HYDRO HPV Ordered, Please see separate report 12/20/2018 1:47 PM CDT [facility] Note The pap test is a screening technique, not a diagnostic procedure. It is used primarily to screen for squamous cancers and precursor lesions. Published studies have shown that it is subject to both false negative and false positive results. The pap test should not be used as the sole means to diagnose or exclude pre-malignant and malignant lesions. Cytology is screened and interpreted at [facility] [employer] [facility] - [address] [place] [address] [address] [address] and [facility] - [address]; [place] [address] and [facility] - [address]; [place] [address] [address] [facility] [address]; [place] [address] 12/20/2018 1:47 PM CDT [facility] Other (Cervical/Vagina l) 12/07/2018 1:35 PM CDT 12/09/2018 11:38 AM CDT Willem Alegre MD PATHOLOGY/CYTOLOGY [facility] [address] [place] [address], from Last 3 Months or Most Recently Relevant to Health Maintenance Advance Directives * Full Code (Latest Code Status on File) Date Activated Date Inactivated Comments 09/20/2006 1:25 PM 09/21/2006 8:46 PM * Full Code Date Activated Date Inactivated Comments 05/23/2006 1:56 AM 05/24/2006 5:02 PM * Full Code Date Activated Date Inactivated Comments 04/12/2006 8:00 PM 04/13/2006 5:10 PM Care Teams Type Copyist Relationship Specialty Start Date End Date Willem Alegre MD PCP - General Family Practice 10/07/16
--- OUTSIDE RECORDS SUMMARY | 2024-03-29 23:48 | XMS_ITS | Encounter Summary ---
Author Organization [place] Address [address] [place] [address] Care Team Providers Care Account Collector Name Role Phone Jose Alegre MD Primary Care Provider [phone] Encounter Details Date Type Department Care Team (Late st Contact Info) Description 03/07/[address] [facility] Health Information Management [address] [facility] [address] [place] [address] Scan, Non-Provider Social History Tobacco Use Types [...] on file Legal Sex Female 5:09 AM MARBLE RUBBER Gender Identity Not on file Sexual Orientation Not on file documented as of this encounter Plan of Treatment Upcoming Encounters Date Type Department Care Team (Late st Contact Info) Description 05/02/2024 11:45 AM MARBLE RUBBER [address] [facility] Maternal Medicine [facility] [address] [place] [phone] Brandi Pozo MD [address] [facility] [address] [place], [place] [address] 05/02/2024 12:15 PM MARBLE RUBBER Office Visit [facility] Maternal Medicine [facility] [address] [facility] [address] [place] [phone] Brandi Pozo MD [address] [place], [place] [address] [facility] [address] [place] [address] documented as of this encounter Visit Diagnoses Not on filedocumented in this encounter Care Teams Account Collector Relationship Specialty Start Date End Date Jose Alegre MD PCP - General Family Practice 03/02/18 documented as of this encounter
--- OUTSIDE RECORDS SUMMARY | 2024-03-29 23:48 | XMS_ITS | Encounter Summary ---
Author Organization [place] Address [address] [place] [address] Care Team Providers Care Export Documents Clerk Name Role Phone Jose Alegre MD Primary Care Provider [phone] Encounter Details Date Type Department Care Team (Latest Contact Info) Description 03/16/2024 Travel Social History Tobacco Use Types Packs/Day Years [...] on file Legal Sex Female 5:09 AM BUTTON CLAMPER Gender Identity Not on file Sexual Orientation Not on file documented as of this encounter Plan of Treatment Upcoming Encounters Date Type Department Care Team (Late st Contact Info) Description 05/02/2024 11:45 AM BUTTON CLAMPER Appointment [facility] [place] [address] [facility] [address] [place] [address] Brandi Pozo MD [address] [place] [address] 05/02/2024 12:15 PM BUTTON CLAMPER Office Visit [facility] [place] [address] [facility] [address] [place] [phone] Brandi Pozo MD [address] [place] [address] documented as of this encounter Visit Diagnoses Not on filedocumented in this encounter Care Teams Export Documents Clerk Relationship Specialty Start Date End Date Jose Alegre MD PCP - General Family Practice 03/02/18 documented as of this encounter
--- OUTSIDE RECORDS SUMMARY | 2024-03-29 23:48 | XMS_ITS | Encounter Summary ---
Author Organization [facility] Address [address] [place] [address] Care Team Providers Care Furniture And Bedding Inspector Name Role Phone Unavailable Primary Care Provider Unavailabl e Encounter Details Date Type Department Care Team (Late st Contact Info) Description 01/13/2024 4:00 PM CDT Silent Schedule Department of Obstetrics and Gynecology in [place], [place] [address] [place] [phone] Elisa Byrne, JOSÉ, C.N.P., M.S.N. [address] [place] [phone] Social History Tobacco Use Types Packs/Day Years Used Date Smoking Tobacco: Former Cigarettes Passive Smoke Exposure: Past Smokeless Tobacco: Never Alcohol Use Standard Drinks/Week Comments No 0 (1 standard drink = 0.6 oz pur e alcohol) [facility] Utilities Answer Date Recorded In the past 12 months has [employer], gas, oil, or water [employer] threatened to shut off services in your [...] How often do you attend chur or jain services? More than 4 times per year 02/23/2020 Do you belong to any clubs o r organizations such as zoroastrianism groups, unions, fraternal or athletic groups, or [...] Answer Date Recorded PHQ-2 Score 0 01/13/2024 [facility] - [...] your living situation today? I have a [facility] to live 12/09/2023 Education Answer Date [...] Byrne APRN C.N.P., M.S.N. IMG OB US [place] OCEDURES Final Result documented in this encounter Visit Diagnoses Not on filedocumented in this encounter Additional Health Concerns Assessment Noted Time PHQ-9 Depression Total Score: 10 024 4:33 PM CDT documented as of this encounter
--- OUTSIDE RECORDS SUMMARY | 2024-03-29 23:48 | XMS_ITS | Clinical Summary ---
Author Organization [facility] Address [address] [place] [address] Care Team Providers Care Plater Supervisor Name Role Phone Jose Alegre MD Primary Care Provider [phone] Allergies Active Allergy Reactions Criticality Noted Date [...] nts Yes 07/21/2024 Based on Ultraso und Encounters Date Type Department Care Team Description 03/16/2024 11:30 AM UNDERGROUND BOLTING MACHINE OPERATOR Office Visit [facility] [place] [address] [place] [address] Brandi Pozo MD Placenta previa in second trimester (Primary Dx) 03/16/2024 10:53 AM UNDERGROUND BOLTING MACHINE OPERATOR - 03/16/2024 11:59 PM UNDERGROUND BOLTING MACHINE OPERATOR Hospital Encounter [facility] [place] [address] [place] [address] Brandi Pozo MD related condition, antepartum Discharge Disposition: Home or Self Care 03/16/2024 Travel 03/09/2024 PRE VISIT [facility] [address] [place] [address] Karen Cid RN Ultrasound (L2-complete placenta previa NOS without hemorrhage) 03/08/2024 Medical Correspondence [facility] [address] [place] [address] Scan, Non-Provider 03/08/2024 Transcribe Orders [facility] [place] [address] [place] [phone] Shruthi Ha related condition, antepartum (Primary Dx) 03/07/2024 Medical Correspondence [facility] [address] [place] [address] Scan, Non-Provider from Last 3 Months Family History Medical History Relation Comments Unknown/Adopted [...] on file Legal Sex Female 5:09 AM UNDERGROUND BOLTING MACHINE OPERATOR Gender Identity Not on file Sexual Orientation Not on file Last Filed Vital Signs Vital Sign Reading Time Taken Comments Blood Pressure 127/91 06/22/2023 1:49 PM UNDERGROUND BOLTING MACHINE OPERATOR Pulse 87 06/22/2023 1:49 PM UNDERGROUND BOLTING MACHINE OPERATOR Temperature 36.6 C (97.9 F) 06/22/2023 1:49 PM UNDERGROUND BOLTING MACHINE OPERATOR Respiratory Rate 16 06/22/2023 2:04 PM UNDERGROUND BOLTING MACHINE OPERATOR Oxygen Saturation 98% 06/22/2023 2:22 PM UNDERGROUND BOLTING MACHINE OPERATOR Inhaled Oxygen Concentration - - Weight 79.6 kg (175 lb 7.8 oz) 06/22/2023 10:31 AM UNDERGROUND BOLTING MACHINE OPERATOR Height 167.6 cm (5' 6) 06/22/2023 10:29 AM UNDERGROUND BOLTING MACHINE OPERATOR Body Mass Index 28.32 06/22/2023 10:29 AM UNDERGROUND BOLTING MACHINE OPERATOR Plan of Treatment Upcoming Encounters Date Type Department Care Team (Late st Contact Info) Description 05/02/2024 11:45 AM UNDERGROUND BOLTING MACHINE OPERATOR Appointment [facility] [address] [place] [address] Brandi Pozo MD [address] [place] [address] 05/02/2024 12:15 PM UNDERGROUND BOLTING MACHINE OPERATOR Office Visit [facility] [address] [place] [address] Brandi Pozo MD [address] [place] [address] Health Maintenance Due Date Last Done Comments ANNUAL REVIEW OF HM ORDERS 1991 NICOTINE/TOBACCO CESSATION COUNSELING Q 1 YR 1991 YEARLY PREVENTIVE VISIT 1991 Pneumococcal Vaccine: Pediatrics (0 to 5 Years) and At-Risk Patients (6 to 64 Years) (1 of 2 - PCV) 1997 DTAP/TDAP/TD IMMUNIZATION (5 - Tdap) 12/20/2003 12/19/2003, 07/02/1994, 01/02/1994, Additional history exists HIV SCREENING 2006 HEPATITIS C SCREENING 2009 ADVANCE CARE PLANNING 03/04/2023 03/04/2018 PHQ-2 (once per calendar year) 2023 MATERNAL SCREENING DISCUSSION 12/24/2023 COVID-19 Vaccine ( season) 2024 INFLUENZA VACCINE (#1) 2024 OBGCT (OB) 03/31/2024 RSV VACCINE (1 - Risk 1-dose series) 05/26/2024 PAP 06/10/2025 06/10/2022, 08/0 10/2018, 12/07/2018 HEPATITIS B IMMUNIZATION Completed 004, 12/31/2001, 12/28/1996, [...] Procedure Name Priority Date/Time Associated Diagnosis Comments [facility] US COMPREHENSIVE SINGLE Routine 03/16/2024 1:44 PM UNDERGROUND BOLTING MACHINE OPERATOR related condition, antepartum from Last 3 Months Results * [facility] US Comprehensive Single (03/16/2024 1:44 PM UNDERGROUND BOLTING MACHINE OPERATOR) Anatomical Region Laterality Modality Ultrasound 03/16/2024 11:0 1 AM UNDERGROUND BOLTING MACHINE OPERATOR Impressions 03/16/2024 12:51 PM UNDERGROUND BOLTING MACHINE OPERATOR IMPRESSION ----- 1. Nava at 21w 6d [...] normal cord insertion. Narrative 03/16/2024 12:51 PM UNDERGROUND BOLTING MACHINE OPERATOR Comprehensive ----- Pat. Name: ABIMAEL DU Study Date: 03/16/2024 11:01am Pat. NO: [id number] Referring MD: SHRUTHI HA Site: Audit Practice Intern: Yelena Choi RDMS : 1990 Age: 34 [...] 1 lb 1 oz EFW by Hadlock ([id number]) Head / Face / Neck Biometry: Plate Slitter And Inspector 6.6 mm CM 3.8 mm Nasal bone 7.1 mm ANATOMY ----- The following structures appear normal: Head / Neck Cranium. Head size. Head shape. Lateral ventricles. Choroid plexus. Midline falx. Cavum septi pellucidi. Cerebellum. Cisterna magna. Parenchyma. Thalami. Vermis. Neck. Face Lips. Profile. Nose. Maxilla. Mandible. Orbits. Lens. Heart / Thorax 4-chamber view. RVOT view. LVOT view. 3-vessel view. 0-piucti-noxaeqd view. Situs. Aortic arch view. Bicaval view. [...] medical record, and communicating with other health childcare center administrator and/or care coordination. Procedure Note Brandi Pozo MD - 03/16/2024 Comprehensive ----- Pat. Name: ABIMAEL DU Study Date: 03/16/2024 11:01am Pat. NO: [id number] Referring MD: SHRUTHI HA Site: Audit Practice Intern: Yelena Choi RDMS : 1990 Age: 34 ----- INDICATION ----- Complete placenta previa History of cesarea delivery METHOD ----- Transabdominal and transvaginal ultrasound approaches were used.(Transvaginal ultrasound examination was required to adequately completethe exam.). View: Sufficient ----- Nava . Number of fetuses: 1 DATING ----- DateDetailsGest. age LG LMP 10/18/2023ycle: irregular cycle21 w + 3 d 07/24/2024 [...] EFW (lb,oz) 1 lb 1oz EFW by Hadlock([id number]) Head / Face / Neck Biometry: Plate Slitter And Inspector 6.6mm CM 3.8mm Nasal bone 7.1mm ANATOMY ----- The following structures appear normal: Head / Neck Cranium. Head size. Head shape.Lateral ventricles. Choroid plexus. Midline falx. Cavum septi pellucidi.Cerebellum. Cisterna magna. Parenchyma. Thalami. Vermis. Neck. Face Lips. Profile. Nose. Maxilla.Mandible. Orbits. Lens. Heart / Thorax 4-chamber view. RVOT view. LVOT view.3-vessel view. 7-ebsmcm-yvtsnsl view. Situs. Aortic arch view. Bicavalview. Ductal [...] electronic medical record, andcommunicating with other health childcare center administrator and/or carecoordination. IMPRESSION ----- 1. Nava at [...] appears bilobed with normal cord insertion. [facility] Res ult - Final from Last 3 Months [place] For more information, please contact: [phone] * Full Code (Latest Code Status on File) Date Activated Date Inactivated Comments 03/03/2018 3:07 AM 03/04/2018 9:08 PM Question Answer Comments Code status determined by: Unable to det ermine; FULL CODE until documents or legal decision maker available Care Teams Plater Supervisor Relationship Specialty Start Date End Date Jose Alegre MD PCP - General Family Practice 03/02/18
--- NOTE | 2024-03-30 00:30 | CRLHL7_ITS ---
For Patients: As a result of the Century Cures Act, medical imaging exams and procedure reports are released immediately into your electronic medical record. You may view this report before your referring provider. If you have questions, please contact your health care provider. INDICATION: Cramping, leaking fluid. COMPARISON: OB ultrasound 03/07/2024. TECHNIQUE: Ultrasound OB pelvis with real time fuentes scale imaging and color Doppler analysis. FINDINGS: Sonographic imaging demonstrates a single living intrauterine gestation. The fetus has a regular cardiac rate of 144 beats per minute. The fetus has a breech orientation. The placenta wraps anterior to posterior along the right wall, and the inferior placental edge covers the internal cervical os compatible with previa. No evidence of placental abruption. Amniotic fluid volume appears normal with deepest pocket measuring 7.9 cm. The cervix is closed and measures 4.1 cm in length. No funneling of the internal cervical os. IMPRESSION: 1. Single living intrauterine gestation in breech position with heart rate 144 beats per minute. 2. Placenta previa again noted. The cervix is closed and measures 4.1 cm in length. 3. Single deepest pocket is within normal limits measuring 7.9 cm. Four quadrant DANK was not obtained. Dictated by Lucia Liu MD @ 03/30/2024 2:08:10 AM (Electronically Signed)
[2024-03-30 00:41] LABS: Color Urine Yellow (Yellow)
[2024-03-30 00:42] LABS: Appearance Urine Cloudy (Clear); Bilirubin Urine Negative (Negative); Blood Urine Negative (Negative); Glucose Urine Negative (Negative); Ketones Urine Negative (Negative); Leukocyte Esterase Urine Negative (Negative); Nitrite Urine Negative (Negative); Protein Urine Trace (Negative); Urobilinogen Urine 0.2 (0.2-1.0)
[2024-03-30 00:50] LABS: Amorphous Sediment Urine Moderate; Bacteria Urine Moderate; Mucus Urine Moderate; RBC Urine 0-2 (0-2); Squamous Epithelial Cell Urine Moderate (None-Few); WBC Urine 0-2 (0-5)
[2024-03-30 00:51] LABS: Amnisure Rom* Negative; Clue Cells <20% Clue Cells Seen (None Seen); Trichomonas No Trichomonas Seen (None Seen); Yeast No Yeast Seen (None Seen)
[2024-03-30 01:03] LABS: Fetal Fibronectin* Negative (Negative)
--- NOTE | 2024-03-30 02:06 | PC.OBNST ---
NST Note NST Note Start: 03/29/24 23:54 Freq: ONCE Status: Active Protocol: Document 03/30/24 02:02 SANGEETHA (Rec: 03/30/24 02:05 TERRANCETimmy [id number]) NST Note 7 Para (# of births) 1 EDC 07/24/24 Gestational Age In Weeks & Days 23 Weeks & 3 Days Patient Presented with Complaint(s) of Contractions/cramping,Leaking fluid Reactive No Appropriate for Gestational Age Yes LEIF Diaz RNC Date 03/30/24 Reactive No Appropriate for Gestational Age Yes LEIF Godinez RN Date 03/30/24 OB NST charge No Complete NST Note via Write Note Yes The provider's electronic signature indicates the NST is reactive/appropriate for gestational age. *Note to provider: If an addendum is required, open the patient's chart and click on the note under the Nurse/Allied Health tab.
== END 2024-03-30 02:00 | disposition home or self-care (01) ==
LOC: OB OUT 23:45 → OB 23:45
PROVIDERS: PCP Family Medicine; Visit Provider Obstetrics & Gynecology
DX: O47.9 False labor, unspecified (principal); Z3A.00 Weeks of gestation of pregnancy not specified
CPT/HCPCS: 76815; 81001; 81003; 84112; 87086; 87210; G0463

== ENCOUNTER 2024-05-06 14:29 | Outpatient (CLI) | payer BC, SELFPAY | END 2024-05-06 14:30 | disposition home or self-care (01) | PROVIDERS: PCP Family Medicine; Referring Provider Family Medicine; Visit Provider Obstetrics & Gynecology | DX: Z34.93 Encounter for supervision of normal pregnancy, unspecified, third trimester (principal); Z3A.28 28 weeks gestation of pregnancy | CPT/HCPCS: 86592 ==

== ENCOUNTER 2024-09-14 17:22 | Outpatient (CLI) | payer BC, SELFPAY ==
--- NOTE | 2024-09-14 17:30 | CRLHL7_ITS ---
For Patients: As a result of the Cures Act, medical imaging exams and procedure reports are released immediately into your electronic medical record. You may view this report before your referring provider. If you have questions, please contact your health care provider. INDICATION: Possible renal mass. COMPARISON: CT abdomen and pelvis with intravenous contrast 11/10/2022; CT abdomen and pelvis without intravenous contrast January 07, 2014. TECHNIQUE: Precontrast T1 and T2 weighted imaging; T2 haste imaging; diffusion-weighted imaging; in and out of phase imaging; postcontrast imaging including subtraction; 15 cc of dotarem contrast was injected IV. FINDINGS: A 0.9 cm simple cortical cyst upper pole left kidney ;stable when compared to November 10, 2022. A 0.4 cm cystic lesion lower pole left kidney slightly higher signal on the precontrast T1 weighted imaging without enhancement post contrast administration; rule out tiny hemorrhagic cyst; stable when compared to November 2022. No focal hepatic or splenic pathology. No pancreatic pathology. The gallbladder is unremarkable. No adrenal pathology. No kidney stones or obstructive uropathy. No enhancing mass lesions in the kidneys on either side. No retroperitoneal lymphadenopathy. No evidence of abdominal ascites. IMPRESSION: 1. A 0.9 cm simple cyst upper pole left kidney: Stable; no follow-up is needed. 2. A 0.4 cm possible hemorrhagic cyst lower pole left kidney; no change when compared to November 2022; follow-up MR of the kidney in 1 year duration suggested. Dictated by Britany Schwartz MD @ 09/15/2024 11:50:51 AM (Electronically Signed)
== END 2024-09-14 17:23 | disposition home or self-care (01) ==
LOC: MRI 17:22
PROVIDERS: PCP Family Medicine; Visit Provider Family Medicine
DX: N28.89 Other specified disorders of kidney and ureter (principal); N28.1 Cyst of kidney, acquired
CPT/HCPCS: 74183; A9575

== ENCOUNTER 2025-01-13 15:44 | Outpatient (CLI) | payer BC, SELFPAY ==
--- NOTE | 2025-01-13 16:00 | CRLHL7_ITS ---
For Patients: As a result of the Century Cures Act, medical imaging exams and procedure reports are released immediately into your electronic medical record. You may view this report before your referring provider. If you have questions, please contact your health care provider. CLINICAL HISTORY: Pelvic pain COMPARISON: 11/10/2022 TECHNIQUE: 2D fuentes-scale ultrasound. In addition, color Doppler and spectral Doppler analysis was performed of the pelvis using a transvaginal approach. FINDINGS: On transvaginal imaging, the myometrium has a normal uniform echotexture. The uterus measures 6.5 x 3.4 x 5.9 cm. The endometrial lining appears normal and measures 5.2 mm in thickness. Incidental small calcification adjacent to the endometrium. The right ovary measures 3.3 x 1.7 x 1.6 cm in size and the left ovary measures 3.0 x 2.0 x 1.8 cm. The ovaries demonstrate normal arterial and venous blood flow on color Doppler and spectral Doppler analysis. There are no suspicious fluid collections within the cul-de-sac. IMPRESSION: No suspicious findings. Dictated by Aj Lopez MD @ 01/14/2025 7:11:25 AM (Electronically Signed)
== END 2025-01-13 15:45 | disposition home or self-care (01) ==
LOC: US 15:44
PROVIDERS: PCP Family Medicine; Visit Provider Obstetrics & Gynecology
DX: R10.2 Pelvic and perineal pain (principal)
CPT/HCPCS: 76830; 93976

== ENCOUNTER 2025-04-03 11:38 | Outpatient (CLI) | payer BC, SELFPAY | END 2025-04-03 11:39 | disposition home or self-care (01) | LOC: LKVREF 11:40 | PROVIDERS: PCP Family Medicine; Visit Provider Family Medicine | DX: Z01.818 Encounter for other preprocedural examination (principal) | CPT/HCPCS: 80048 ==

== ENCOUNTER 2025-04-19 09:18 | Day surgery (SDC) | payer BC, SELFPAY ==
[2025-04-19] VITALS (21 sets, daily range): BP systolic 90–143; BP diastolic 53–91; PULSE 54–98; RESP 14–23; TEMP 36.1–36.7; O2SAT 95–100; BMI 25.8
[2025-04-19 10:20] LABS: Ur HCG Qualitative* Negative (Negative)
[2025-04-19 10:20] LABS: Hemoglobin* 13.7 gm/dL (12.0-16.0)
[2025-04-19] MEDS: SCOPOLAMINE 1 MG/3 DAY PATCH 1 PATCH TRANSDERMA (10:20)
[2025-04-19] MEDS: ACETAMINOPHEN 500 MG TABLET 1000 MG PO ×3 (10:20→21:49)
[2025-04-19] MEDS: GABAPENTIN 600 MG TABLET PO (10:20)
[2025-04-19] MEDS: SODIUM CHLORIDE 0.9 % (FLUSH) 10 ML SYRINGE IVF (10:25)
[2025-04-19] MEDS: LACTATED RINGERS 1000 ML 1,000 ML 100 ML IV ×2 (10:25→12:33)
[2025-04-19] MEDS: BUPIVACAINE 0.25% 30 ML INJECTION (11:18)
--- NOTE | 2025-04-19 13:04 | W.PM.NB ---
Nerve Block Nerve Block Time Seen by Provider: 10:40 Date Seen: 04/19/25 Type of block requested by surgeon for post-operative analgesia: TAP Side: bilateral Time out performed: Yes Verification of patient name: Yes Verification of date of : Yes Site marking: site marked Name of person performing procedure: Vanda Aguilar Assistants, if any: Ruiz Sweet Continuous monitoring Was continuous monitoring of O2 sat, B/P, court monitor, recorded every 15 minutes?: Yes Procedure Checklist: sterile prep, needles and gloves Ultrasound guided. Images saved: Yes Medications given in 5ml increments after negative aspiration: Marcaine %: 0.25 mL: 30 Needle gauge: 20 and Exparel mL: 10 Needle gauge: 20 Patient tolerated procedure well: Yes Additional comments: Injected in 5 mL increments after negative aspiration Block Charges Block Charge (with Pro Fee): TAP Bilateral Use of Ultrasound Machine for Block: Yes- US Guidance/pain block
--- NOTE | 2025-04-19 13:49 | P.ANES_ITS ---
Anesthesia Charges Start Date/Time Anesthesia Start Date: 04/19/25 Anesthesia Start Time: 10:27 Stop Date/Time Anesthesia Stop Date: 04/19/25 Anesthesia Stop Time: 13:47 Coding CPT Codes CPT Codes: ANESTH SURG LOWER ABDOMEN - 23772 ([id number]) QK - SITE AUDITOR 2-4 CNCRNT ANES PROC, QX - PROFESSOR OF EARLY CHILDHOOD EDUCATION SVC W/ MD MED DIRECTION, P2 - PATIENT W/MILD SYST DISEASE
--- NOTE | 2025-04-19 13:49 | W.PM.GYNPROC ---
Procedure Note Date of procedure: 04/19/25 Will [facility] bill your pro fee for this procedure?: Yes Pre-op diagnosis: 1. Chronic pelvic pain 2. Menorrhagia 3. History of sections x2 Post-op diagnosis: 1. Chronic pelvic pain 2. Menorrhagia 3. History of sections x2 Procedure: Total laparoscopic hysterectomy, bilateral salpingectomy, diagnostic cystoscopy. Anesthesia: GETA and other (TAP block) Complications: None. Surgeon: Deborah Shepehrd MD Evaluation Engineer: Gianna Burciaga Estimated blood loss (mL): 50 IV fluids (mL): 1,500 Urine Output (mL): 480 Pathology: specimen obtained, sent to pathology (Uterus with attached cervix, bilateral fallopian tubes) Condition: stable Disposition: PACU Findings: Normal-appearing uterus, fallopian tubes, and uterus. Questionable spot of endometriosis involving the distal left tube. Normal-appearing appendix. Procedure Description: After obtaining informed consent, the patient was taken to the operating room where general anesthesia was obtained without difficulty. She was prepared and draped in the normal sterile fashion in the low dorsal lithotomy position. A Garcia catheter was inserted into the bladder and left to gravity drainage. A small Josseline open-sided speculum was introduced into the vagina. The cervix was visualized and grasped along its anterior lip with a single-tooth tenaculum. The cervix was gently dilated to a #5 dilator. I then placed a large VCare uterine manipulator. The tenaculum and speculum were removed. The green VCare cup was digitally pressed up against the cervix and then cinched in place with the blue accessory cup. I then changed gloves and my attention was turned to the abdomen. The inferior aspect of the umbilical fold was injected with 0.25% Marcaine plain. A 6 mm vertical incision was then made within the umbilical fold using a scalpel. The underlying fascia was grasped with two small Soy clamps, elevated, and incised with Bettencourt scissors. A 5e mm laparoscopic port and sleeve were then inserted through the defect and push through the underlying peritoneum with CO2 gas set to a 5 mmHg. The trocar was removed leaving the sleeve in place. The CO2 gas flow was turned to high flow to achieve pneumoperitoneum. The 5 mm laparoscope was used then to carefully inspect the abdomen and pelvis with findings noted above. Pictures were taken for documentation purposes. The patient was placed in Trendelenburg positioning. Two additional ports were placed in the right (11 mm) and left (5 mm) lower quadrants under direct visualization after first anesthetizing the skin and fascia with 0.25% Marcaine plain. Once the ports were in place, the VCare manipulator was used to elevate the uterus. The ureters were identified bilaterally along their courses in the pelvic sidewalls. The VCare cup was visualized and palpated with a blunt grasper. The left tube was elevated with a graspers. The Olympus Powerseal was used to dissect the tube from its ovarian and broad ligament and cornual attachments before removing the tube through a lower port. Excellent hemostasis was obtained. The left round ligament was then sealed in a wide swath and transected with the Olympus Powerseal. Excellent hemostasis was obtained. The broad ligament was then opened using the Olympus Powerseal anteriorly and posteriorly along the cervix from the left within the confines of the VCare cup. The bladder was noted to be very densely adherent to the lower uterine segment, so the anterior dissection was not carried over to the midline yet it. Pressure was maintained on the uterine manipulator the whole time. The left uterine vessels were sealed in a wide swath sought not yet transected. The right tube was elevated with a graspers. The Olympus Powerseal was used to dissect the tube from its ovarian and broad ligament and cornual attachments before removing the tube through a lower port. Excellent hemostasis was obtained. The right round ligament was then sealed in a wide swath and transected with the Olympus Powerseal. Excellent hemostasis was obtained. The broad ligament was then opened using the Olympus Powerseal posteriorly along the cervix from the right within the confines of the VCare cup. Pressure was maintained on the uterine manipulator the whole time. The anterior leaf of the broad ligament was opened partially anteriorly, but then the dissection was stopped when the dissection reached the dense adhesions that were tethering the bladder to the lower uterine segment. The bladder was then backfilled with 120 mL of sterile milk in order to better see the reflection. Sharp dissection was then performed using a laparoscopic Metzenbaum scissors to free the bladder from the lower uterine segment within the confines of the VCare cup. The right uterine vessels were sealed in a wide swath and transected with the Olympus Powerseal, then the tissues over the VCare cup edge on the right side were thinned using the Olympus Powerseal to the midline posteriorly and anteriorly so that the fascial layer could be identified. The left uterine vessels were then also sealed in a wide swath again and transected using the Olympus power seal, and the tissues overlying the VCare cup on the left side were thinned using the Olympus power seal to the midline posteriorly and anteriorly. Once an adequate dissection was made circumferentially, the Olympus Powerseal was removed and the Valleylab spatula used to incise the tissue circumferentially around the cervix within the groove of the VCare cup. Once the dissection was completed circumferentially, I was able to go below and remove the uterine manipulator and the uterus. A sterile glove containing two Ray-Tecs was placed into the vagina to aid in maintaining pneumoperitoneum. The vaginal cuff was reapproximated in a running fashion with a V-Loc suture starting from the left side and running across to the right and then back to the midline where the suture was cut flush with the tissues. The pelvis was copiously irrigated and hemostasis visualized. Preparations were then made for cystoscopy. Fluorescein was administered intravenously along with the IV fluids. The Garcia catheter was removed. The patient was flattened out. Cystoscopy was performed using sterile normal saline as distending medium. The bladder was carefully inspected and noted to be free of filling defects or suture material. Both ureteral orifices were easily visualized and fluorescein tinged urine jets were noted from both sides. The cystoscope was then removed. The Garcia catheter was sterilely replaced into the bladder. I then changed gloves again and my attention was once again turned to the abdomen. The abdomen and pelvis were again irrigated and inspected for hemostasis. The right lower quadrant 11 mm port was removed and the Arnoldo-Moose device used to reapproximate the fascia at this site with an interrupted suture of 0 Vicryl. All instruments were then removed under direct visualization. Pneumoperitoneum was allowed to escape. Preparations were made for closure of the incisions, and at this time, there was some active bleeding noted at the umbilical port site that seem to be welling up from low within the incision or from the abdomen. The fascial defect was identified, an S retractor placed into the defect, and a 5 mm port and sleeve were once again advanced through the umbilical incision and fixed in place by insufflating the attached balloon. Pneumoperitoneum was again obtained. The left lower quadrant 5 mm port was also replaced under direct visualization. The abdomen and pelvis were carefully inspected, and the vaginal cuff was noted to be hemostatic. There was a tiny bit of bleeding from the bladder dissection, which was controlled with the [facility] cautery in two places. The 5 mm laparoscoped was replaced into the left lower quadrant port, and the umbilical port site inspected. There was no active bleeding noted within the abdomen. All laparoscopic ports were again removed. With the use of S retractors, a small area of active bleeding was noted within the rectus muscles, which was controlled with electrocautery. The fascia was reapproximated at the umbilicus in a pursestring fashion with 0 Vicryl. The skin at all 3 port sites was closed in a subcuticular fashion with 4-0 Vicryl. Surgical glue was then placed over the incisions. The patient tolerated the procedure well. Sponge, lap, needle, and instrument counts were reported as correct x2. The patient was taken to the recovery room awake and in stable condition. She did receive 2 g of IV Ancef preoperatively.
--- NOTE | 2025-04-19 13:49 | W.ANESCHARGE ---
Anesthesia Charges Start Date/Time Anesthesia Start Date: 04/19/25 Anesthesia Start Time: 10:27 Stop Date/Time Anesthesia Stop Date: 04/19/25 Anesthesia Stop Time: 13:47 Coding CPT Codes CPT Codes: ANESTH SURG LOWER ABDOMEN - 05255 ([id number]) QK - QUARTER DOPER 2-4 CNCRNT ANES PROC, QX - BREWERY REPRESENTATIVE SVC W/ MD MED DIRECTION, P2 - PATIENT W/MILD SYST DISEASE
--- NOTE | 2025-04-19 14:19 | P.ANES_ITS ---
Anesthesia Charges Start Date/Time Anesthesia Start Date: 04/19/25 Anesthesia Start Time: 10:27 Stop Date/Time Anesthesia Stop Date: 04/19/25 Anesthesia Stop Time: 13:47 Coding CPT Codes CPT Codes: ANESTH SURG LOWER ABDOMEN - 76938 ([id number]) P2 - PATIENT W/MILD SYST DISEASE, QK - SENIOR NETWORK ADMINISTRATOR 2-4 CNCRNT ANES PROC, QX - SAP PAYROLL CONSULTANT SVC W/ MD MED DIRECTION
--- NOTE | 2025-04-19 14:19 | W.ANESCHARGE ---
Anesthesia Charges Start Date/Time Anesthesia Start Date: 04/19/25 Anesthesia Start Time: 10:27 Stop Date/Time Anesthesia Stop Date: 04/19/25 Anesthesia Stop Time: 13:47 Coding CPT Codes CPT Codes: ANESTH SURG LOWER ABDOMEN - 11345 ([id number]) P2 - PATIENT W/MILD SYST DISEASE, QK - LAUNDRY HOUSEKEEPER 2-4 CNCRNT ANES PROC, QX - BUILDING INSPECTOR SVC W/ MD MED DIRECTION
--- NOTE | 2025-04-19 19:02 | PC.NURSE ---
End of shift: patient a/o x4. active ice to lap sites, tolerating a reg diet. afebrile this shift. Garcia patent and draining. PRN oxy and tylenol administered with relief. Patient VSS on RA. IV SL. Patients own meds in med room box.
[2025-04-19] MEDS: GABAPENTIN 300 MG CAPSULE PO (20:40)
[2025-04-19] MEDS: METOPROLOL SUCCINATE (XL) 25 MG TAB PO (20:40)
[2025-04-19] MEDS: NICOTINE 21 MG PATCH 1 PATCH TRANSDERMA (21:50)
[2025-04-20 00:15] VITALS: BP 121/81; PULSE 75; RESP 16; TEMP 37.2; O2SAT 94
[2025-04-20] MEDS: DOCUSATE SODIUM 100 MG CAPSULE PO (00:26)
[2025-04-20 04:30] VITALS: BP 136/88; PULSE 81; RESP 18; TEMP 37.1; O2SAT 96
[2025-04-20] MEDS: ACETAMINOPHEN 500 MG TABLET 1000 MG PO ×2 (04:41→12:19)
--- NOTE | 2025-04-20 06:28 | PC.NURSE ---
End of shift note [id number]: Pt A&Ox4 and able to make needs known.?Surgical sites?to?abdomen are C/D/I and ARLEEN with surgical glue in place. Small area of what appears to be light bruising developing under umbilicus area with area outlined. Pt has been denying nausea throughout the shift and tolerating?regular?diet with no vomiting. Garcia catheter?removed?last evening as pt was up ambulating halls with SBA and gait belt.?Pt has not voided since though bladder scan under 200 mL with po fluids encouraged. Scant amount of sanguineous drainage?observed?from vagina after Garcia removed.?Vaginal pain/cramping managed with PRN medications and active ice.?VSS- pt has been afebrile and on RA throughout the shift.?Nicotine patch placed PSO to RUE as pt is?everyday?smoker. Call light within reach. ??
[2025-04-20 06:33] LABS: Hemoglobin* 12.4 gm/dL (12.0-16.0)
[2025-04-20 06:47] LABS: Creatinine* 0.6 mg/dL (0.5-1.5); Est. Creatinine Clearance* 123.68; Estimated Glomerular Filt Rate 121 ml/min
[2025-04-20 07:00] VITALS: PULSE 65; RESP 16
[2025-04-20 07:35] VITALS: BP 133/92; PULSE 65; RESP 16; TEMP 36.3; O2SAT 98
--- NOTE | 2025-04-20 07:37 | P.DS_ITS ---
DS: Providers Provider Time Seen by Provider: 07:37 Date Seen: 04/20/25 Date of admission: 04/19/25 09:18 Primary care physician: Willem Alegre MD Admitting Clinician: Deborah Shepherd MD Consults: 04/19/25 09:42 Consult to Lead Refinery Supervisor [CONS] Routine Comment: Reason for Consult:: Social Service Consult Attending Physician on discharge: Deborah Shepherd MD Date of Discharge: 04/20/25 DS: Diagnosis Discharge Diagnosis (1) S/P hysterectomy: Status: Acute Problem details: Total laparoscopic hysterectomy, bilateral salpingectomy COST ACCOUNTING MANAGER-Discharge Summary Hospital Course Hospital Course Narrative: Patient is a 35 year old admitted on 04/19/25 for schedule surgery. Indication for surgery: 1. Chronic pelvic pain 2. Menorrhagia Intraoperative findings: Normal-appearing uterus, fallopian tubes, and uterus. Questionable spot of endometriosis involving the distal left tube. Normal-appearing appendix. Omental adhesions to the anterior abdominal wall and to the anterior cul-de-sac. She had an uncomplicated surgery. Postoperative course has been uneventful. Vitals have been stable. She has remained afebrile. Today, on postoperative day 1, she reports the pain is decently controlled. Having a lot of abdominal discomfort and distension from retained CO2 gas. Recommended IS, warm shower, Heating pad, and/or walking. She has been able to ambulate Without difficulty. She is tolerating regular diet without n/v. Has passed flatus. Garcia catheter has been removed, and she has not been able to void. Bladder scan performed last night showed 175 cc. Will try to go this AM. If patient is unable to void spontaneously by noon, we discussed discharge for Garcia cath in place and follow up appointment tomorrow for voiding trial. Patient denies fever, chills, chest pain, SOB, n/v, headache, or dizziness. Hgb 12.4 gm/dL Interval update: Patient able to void 250 cc of clear urine without issue. Stable and appropriate for discharge. Time Spent with Patient Time attestation: Total time spent providing and/or coordinating discharge services: Time spent: Greater than 30 minutes COST ACCOUNTING MANAGER - Exam Physical Exam: Vital signs: Temp Pulse Resp BP Pulse Ox O2 Del Method 98.8 F 81 18 136/88 96 Room Air 04/20/25 04:30 04/20/25 04:30 04/20/25 04:30 04/20/25 04:30 04/20/25 04:30 04/20/25 04:30 Narrative: Physical exam: General: No acute distress Psych: Alert and oriented x4, full affect HEENT: Normocephalic, atraumatic Neck: No cervical adenopathy, no thyromegaly Heart: Regular rate and rhythm, no murmur rub or gallop Lungs: Clear to auscultation bilaterally Abdomen: Normoactive bowel sounds, soft, no tenderness, rebound, or guarding, no masses, no hepatosplenomegaly, no hernias Incision(s): Appropriately tender to palpation. Bruising at the umbilical incision - border outline and no spread. Clean, dry, and intact. No erythema, induration, or abnormal discharge/breakdown x3. Skin: No lesions or rashes Lower extremities: No edema or erythema Pelvic exam: No bleeding on pad COST ACCOUNTING MANAGER - DS: Data Data Completed and Pending Labs on day of discharge: Labs from last 24 hours 04/20/25 04/19/25 04/19/25 05:58 10:08 09:45 Hgb 12.4 13.7 Creatinine 0.6 Estimated Creat Clear 123.68 Estimated GFR 121 Urine HCG, Qual Negative Blood Type B Positive Antibody Screen NEGATIVE Procedures Procedures: Procedures Operation Date: 04/19/25 10:30 Actual Procedure Side Surgeon p Laparoscopic Total Hysterectomy, Bilateral salpingectomies, Cystoscopy Deborah Shepherd MD Discharge Plan Discharge Disposition: Home, Self-Care Date of Admission: 04/19/25 09:18 Attending Provider on Discharge: Geovanna Segura Primary Care Provider: Willem Alegre Condition: Stable Anticipated Discharge Date/Time: 04/20/25 10:31 Discharge Medications: New oxycodone 5 mg tablet 5 mg PO Q6H PRN (Reason: pain) Qty: 20 0RF cyclobenzaprine 10 mg tablet 10 mg PO DAILY PRN (Reason: muscle spasm) Qty: 10 0RF Continued folic acid 800 mcg tablet 1,200 mcg PO QDAY multivitamin Tablet 1 tab PO QDAY gabapentin 300 mg capsule 300 mg PO DAILY norethindrone (contraceptive) 0.35 mg tablet PO metoprolol succinate 25 mg tablet extended release 24 hr 25 mg PO QPM albuterol sulfate 2.5 mg /3 mL (0.083 %) solution for nebulization 2.5 mg inhalation Q4-6H PRN ketoconazole 2 % cream 1 applic topical BID Qty: 15 2RF ondansetron 4 mg tablet,disintegrating 4 mg PO Q8H PRN clobetasol 0.05 % ointment 1 applic topical .2 x week PRN albuterol sulfate 90 mcg/actuation HFA aerosol inhaler 2 inh inhalation Q4-6H PRN hydroxyzine HCl 25 mg tablet 25 mg PO TID PRN (Reason: anxiety) Qty: 60 0RF venlafaxine 150 mg tablet extended release 24hr 150 mg PO QAM Qty: 90 0RF dextroamphetamine-amphetamine 30 mg capsule,extended release 24hr 30 mg PO QAM Qty: 30 0RF Discharge Orders: Discharge Order (Routine); Ordered 04/20/25 Ordered By: Geovanna Segura Patient Education: Scopolamine (Absorbed through the skin) (Transderm Scop), Bupivacaine Liposome (By injection), General Anesthesia (DC), NH+C Laparoscopic Hysterectomy Follow Up Appointments: Willem Alegre MD [Primary Care Provider, Family Practice] Forms: [facility] Info Instructions
[2025-04-20] MEDS: IBUPROFEN 600 MG TABLET PO (09:37)
[2025-04-20] MEDS: VENLAFAXINE XR 150 MG CAP PO (09:38)
--- NOTE | 2025-04-20 10:23 | PC.SOCIAL ---
industrial services worker referral in error, no needs.
--- NOTE | 2025-04-20 16:03 | PC.NURSE ---
Discharge: Patient pleasant and cooperative, A&O. VSS, afebrile. Pt reported chest pain this morning, MD notified, no new orders. IV removed with tip intact. Discharge instructions provided, all questions answered. D/C to home
== END 2025-04-20 12:00 | disposition home or self-care (01) ==
LOC: MEDSURG 04-20 07:36 → SS 04-20 11:16 → MEDSURG 04-20 11:17
PROVIDERS: PCP Family Medicine; Visit Provider Obstetrics & Gynecology
PROC: 0UT94ZZ Resection of Uterus, Percutaneous Endoscopic Approach (ICD-10-PCS; CPT 58571; principal; 2025-04-19 10:30)
DX: N92.0 Excessive and frequent menstruation with regular cycle (principal); R10.23 Pelvic and perineal pain bilateral; K66.0 Peritoneal adhesions (postprocedural) (postinfection); N73.6 Female pelvic peritoneal adhesions (postinfective); N80.203 Endometriosis of bilateral fallopian tubes, unspecified depth; G89.18 Other acute postprocedural pain; G89.29 Other chronic pain; R10.31 Right lower quadrant pain
CPT/HCPCS: 58571; 00840; 36415; 51798; 64488; 76942; 81025; 82565; 85018; 86850; 86900; 86901; A4314; A9270; J0330; J0665; J0666; J0690; J1100; J1171; J1630; J1885; J2371; J2405; J2704; J2710; J3475; J3490; J7120; S4990